=== PATIENT | male | born 1945 | race Caucasian/White ===

== ENCOUNTER 2017-01-06 15:43 | Emergency (ER) | payer OTHER ==
[2017-01-06 15:49] VITALS: TEMP 97.8; BMI 27.2
[2017-01-06] MEDS ORDERED: ACETAMINOPHEN 325 MG TABLET (FP) PO ONE (16:19)
--- NOTE | 2017-01-06 16:19 | PDOC ---
History of Present Illness <Ivy Godoy - Last Filed: 01/06/17 18:02> - General History Source: Patient Exam Limitations: No Limitations - History of Present Illness Initial Comments: 71 yo M history DM, HTN presents with L sided rib pain and R low back pain s/p fall 2 days ago. Fall was mechanical. No LOC, no head injury. He c/o pain on deep inspiration and with palpation of his left ribs. He has pain that goes from low back into his R leg, however, he has had that for 4 months, unchanged. No weakness, numbness. Pain is moderate. He has not taken anything for it. <Sarina Morrow - Last Filed: 01/06/17 19:01> - General Chief Complaint: Pain Stated Complaint: FALL/ RT LEG PAIN, SOB Time Seen by Provider: 01/06/17 16:05 Past History <Ivy Godoy - Last Filed: 01/06/17 18:02> - Past Medical History Diabetes: Yes HTN: Yes Hypercholesterolemia: Yes - Psycho/Social/Smoking Cessation Hx Suicidal Ideation: No Smoking History: Never smoked Information on smoking cessation initiated: No <Sarina Morrow - Last Filed: 01/06/17 19:01> - Past Medical History Allergies/Adverse Reactions: Allergies Allergy/AdvReac Type Severity Reaction Status Date / Time No Known Allergies Allergy Verified 01/06/17 15:49 Home Medications: Ambulatory Orders Aspirin [ASA -] 81 mg PO DAILY 01/06/17 Gabapentin [Neurontin] 100 mg PO DAILY 01/06/17 Linagliptin [Tradjenta] 5 mg PO DAILY 01/06/17 Rosuvastatin Calcium [Crestor] 40 mg PO DAILY 01/06/17 Tramadol HCl 0.5 - 1 tab PO Q6H PRN #12 tablet MDD 4 tabs 01/06/17 Valsartan [Diovan] 160 mg PO DAILY 01/06/17 Review of Systems - Review of Systems Able to Perform ROS?: Yes Comments:: GENERAL/CONSTITUTIONAL: No fever or chills. No weakness. HEAD, EYES, EARS, NOSE AND THROAT: No change in vision. No ear pain or discharge. No sore throat. CARDIOVASCULAR: No shortness of breath. +L sided rib pain. RESPIRATORY: No cough, wheezing, or hemoptysis. GASTROINTESTINAL: No nausea, vomiting, diarrhea or constipation. GENITOURINARY: No dysuria, frequency, or change in urination. MUSCULOSKELETAL: +R low back pain. No joint or muscle swelling or pain. No neck pain. SKIN: No rash NEUROLOGIC: No headache, vertigo, loss of consciousness, or change in strength/ sensation. ENDOCRINE: No increased thirst. No abnormal weight change. HEMATOLOGIC/LYMPHATIC: No anemia, easy bleeding, or history of blood clots. ALLERGIC/IMMUNOLOGIC: No hives or skin allergy. <Sarina Morrow - Last Filed: 01/06/17 19:01> *Physical Exam - Vital Signs Last Vital Signs Temp Pulse Resp BP Pulse Ox 97.8 F 70 18 168/98 97 01/06/17 15:44 01/06/17 15:44 01/06/17 15:44 01/06/17 15:44 01/06/17 15:44 <Ivy Godoy - Last Filed: 01/06/17 18:02> - Vital Signs Last Vital Signs Temp Pulse Resp BP Pulse Ox 97.8 F 70 18 168/98 97 01/06/17 15:44 01/06/17 15:44 01/06/17 15:44 01/06/17 15:44 01/06/17 15:44 - Physical Exam Comments: GENERAL: Awake, alert, and fully oriented, in no acute distress HEAD: No signs of trauma EYES: PERRLA, EOMI, sclera anicteric, conjunctiva clear ENT: Auricles normal inspection, hearing grossly normal, nares patent, oropharynx clear without exudates. Moist mucosa NECK: Normal ROM, supple, no lymphadenopathy, JVD, or masses LUNGS: Breath sounds equal, clear to auscultation bilaterally. No wheezes, and no crackles. +L lower rib tenderness in the mid-axillary line. HEART: Regular rate and rhythm, normal S1 and S2, no murmurs, rubs or gallops ABDOMEN: Soft, nontender, normoactive bowel sounds. No guarding, no rebound. No masses EXTREMITIES: Normal range of motion, no edema. No clubbing or cyanosis. No cords, erythema, or tenderness NEUROLOGICAL: Cranial nerves II through XII grossly intact. Normal speech, normal gait SKIN: Warm, Dry, normal turgor, no rashes or lesions noted. SPINE: No midline tenderness. +Tenderness to R iliac crest. <Sarina Morrow - Last Filed: 01/06/17 19:01> ED Treatment Course - RADIOLOGY Radiograph Interpretation: 01/06/17 17:50 XRay of Pelvis As reviewed by Dr. Esau Westfall IMPRESSION: No fracture or acute pathology. 01/06/17 18:03 XRay of Ribs As reviewed by Dr. Esau Westfall IMPRESSION: Fracture fourth and fifth lateral ribs. XRay of Lumbar Spine As reviewed by Dr. Esau Westfall IMPRESSION: Mild degenerative arthritis, no fracture no acute bony abnormalities. - Medications Given in the ED: ED Medications Discontinued Medications Generic Name Dose Route Start Last Admin Trade Name Freq PRN Reason Stop Dose Admin Acetaminophen 650 mg 01/06/17 16:19 01/06/17 16:25 Tylenol - PO 01/06/17 16:20 650 mg ONCE ONE Administration <Ivy Godoy - Last Filed: 01/06/17 18:02> *DC/Admit/Observation/Transfer <Ivy Godoy - Last Filed: 01/06/17 18:02> - Discharge Dispostion Admit: No <Sarina Morrow - Last Filed: 01/06/17 19:01> Diagnosis at time of Disposition: Rib fractures Qualifiers: Encounter type: initial encounter Rib fracture type: multiple ribs Fracture type: closed Laterality: left Qualified Code(s): S22.42XA - Multiple fractures of ribs, left side, initial encounter for closed fracture - Discharge Dispostion Disposition: HOME Condition at time of disposition: Stable - Prescriptions Prescriptions: Tramadol HCl 0.5 - 1 tab PO Q6H PRN #12 tablet MDD 4 tabs PRN Reason: Severe Pain - Patient Instructions Printed Discharge Instructions: DI for Rib Fracture Print Language: PORTUGUESE
[2017-01-06] MEDS ORDERED: ACETAMINOPHEN 325 MG TABLET (FP) ONE (16:23)
[2017-01-06 18:56] VITALS: BP 136/70; PULSE 84
== END 2017-01-06 18:56 | disposition home or self-care (01) ==
LOC: JER 15:43
DX: S22.42XA Multiple fractures of ribs, left side, initial encounter for closed fracture (principal); W18.30XA Fall on same level, unspecified, initial encounter; Y93.9 Activity, unspecified; Y92.9 Unspecified place or not applicable; I10 Essential (primary) hypertension; E11.9 Type 2 diabetes mellitus without complications; Z79.82 Long term (current) use of aspirin
CPT/HCPCS: 71101-TC; 72100-TC; 72170-TC; 99282-25

== ENCOUNTER 2019-08-28 06:43 | Inpatient (IN) | payer OTHER ==
[2019-08-28] MEDS ORDERED: ALBUTEROL SO4 HFA INHALER IH ONE (11:37)
[2019-08-28] MEDS ORDERED: ACETAMINOPHEN 325 MG TABLET (FP) PO PRN (11:37)
--- NOTE | 2019-08-28 11:55 | OP ---
Operative Note - Note: Operative Date: 08/28/19 Pre-Operative Diagnosis: bph with obst. Operation: cysto, turp/tuvp Findings: trilobar prostate hypertrophy and trabeculated bladder Post-Operative Diagnosis: Same as Pre-op Surgeon: Kelechi Mcdonnell Anesthesia: General Specimens Removed: prostate tissue Estimated Blood Loss (mls): 50 Drains & Tubes with Location: 24f 30 cc 3way meraz with cbi Drains, Volume Out (mls): 0 Blood Volume Replaced (mls): 0 Fluid Volume Replaced (mls): 0 Operative Report Dictated: Yes
[2019-08-28] MEDS ORDERED: ceFAZolin SODIUM 1 GM VIAL ONE (12:08)
[2019-08-28] MEDS ORDERED: LIDOCAINE HCL/PF 2% SDV 5ML VIAL ONE (12:08)
[2019-08-28] MEDS ORDERED: MIDAZOLAM HCL 2 MG/2 ML SINGLE DOSE VIAL ONE (12:08)
[2019-08-28] MEDS ORDERED: PROPOFOL 20 ML ONE (12:08)
--- NOTE | 2019-08-28 12:09 | OP ---
DATE OF OPERATION: 08/28/2019 PREOPERATIVE DIAGNOSIS: Obstructive uropathy, benign prostatic hypertrophy. POSTOPERATIVE DIAGNOSIS: Trilobar hypertrophy of the prostate, lateral lobe kissing, grade 2-3 trabeculation of the bladder. ANESTHESIA: General. OPERATIVE PROCEDURE: Transurethral resection and transurethral vaporization of the prostate. ANESTHESIA: General. DESCRIPTION OF PROCEDURE: Under above-stated anesthesia, patient is prepped and draped in the usual sterile manner. He is placed in the dorsal lithotomy position. Cystoscopy under direct vision revealed a normal anterior urethra. Prostatic urethra revealed trilobar hypertrophy of the prostate. There was lateral lobe kissing. Prostatic urethra measured 6 cm in length. The bladder was entered, 200 mL of urine was drained. This was sent for cytology and culture and sensitivity. Inspection of the bladder revealed a grade 2-3 trabeculation. There were sacules on the right and left lateral coronel. Ureteral orifices were within normal limits with efflux of clear urine. A bipolar resectoscope was inserted. Resection of the prostate was commenced at the 6 o'clock position of the right lower lobe. This was carried on up to the 12 o'clock position. Same thing was done to the left lateral lobe. Lastly, the median lobe was resected. Hemostasis was secured with electrocoagulation. Prostate chips were evacuated with an [employer] evacuator. A VaporTrode was then introduced, and vaporization of excess tissue was performed in the usual manner. Again, bleeding was controlled with electrocautery. No active bleeding was noted. The bladder was emptied. The scope was removed. A 24-Danish, 30-mL, 3-way [place] catheter was inserted. This was connected to a drainage bag. The patient tolerated the procedure well. He returned to the recovery room in good condition. Salomón [id number]
[2019-08-28] MEDS ORDERED: TAMSULOSIN HCL 0.4 MG CAP PO ONE (12:15)
[2019-08-28] MEDS ORDERED: ceFAZolin SODIUM 1 GM VIAL IVPB ONE (12:28)
--- NOTE | 2019-08-28 12:31 | CONS ---
DATE OF CONSULTATION: DATE OF DICTATION: 08/28/2019 HISTORY: Patient is a 74-year-old male with history of prostatism including frequency, urgency, nocturia x4, hesitancy, terminal dribbling, a weak urinary stream, and a postvoid residual greater than 200 mL. PAST MEDICAL HISTORY: The patient does have history of high blood pressure, diabetes, and dyslipidemia. PAST SURGICAL HISTORY: He denies any past surgeries. MEDICATIONS: He is on albuterol, losartan, Flomax, Proscar. Was on Plavix but stopped 1 week earlier. He is also on vitamin D. Patient also is on Trulicity, XR 1000 mg, and a statin. PHYSICAL EXAMINATION: General: Reveals a well-developed, elderly male in no apparent distress. HEENT: His head is normocephalic, atraumatic. Chest: Clear to auscultation, percussion. Heart: Regular rhythm. Abdomen: Soft. There is no CVA tenderness. Extremities: Reveal full range with no clubbing, cyanosis, or edema. Neurologic: There are no focal lesions noted. Motor strength in upper and lower extremities are normal. Sensory exam is intact. Genitourinary: Prostate is 3+, smooth, nontender. Rectal: Tone is good. Saddle sensation is present. PLAN: The patient is undergoing a cystoscopy and a TURP. This was explained to patient in detail. All side effects including retrograde ejaculation, hemorrhage, infection, perforation were also explained in detail, and patient agrees. Salomón [id number]
[2019-08-28] MEDS ORDERED: DEXAMETHASONE SOD PHOSPHATE 4 MG/1 ML VIAL ONE (12:36)
[2019-08-28] MEDS ORDERED: GENTAMICIN 80MG PREMIX BAG IVPB ONE (14:14)
[2019-08-28] MEDS ORDERED: GENTAMICIN SO4 80 MG/2 ML VIAL ONE (14:15)
[2019-08-28] MEDS ORDERED: KETOROLAC TROMETHAMINE 30 MG/1 ML VIAL ONE (14:39)
[2019-08-28] MEDS ORDERED: oxyCODONE HCL 5 MG TABLET PO PRN (15:00)
[2019-08-28] MEDS ORDERED: ONDANSETRON 4 MG/2 ML VIAL IVPUSH PRN (15:00)
[2019-08-28] MEDS ORDERED: LACTATED RINGERS SOLUTION 1,000 ML IV SCH ×2 (15:00→20:00)
[2019-08-28] MEDS ORDERED: ACETAMINOPHEN 1000 MG/100 ML VIAL (NON FORMULARY) IVPB ONE (15:02)
--- NOTE | 2019-08-28 16:18 | PATH ---
Cytology Non-Gynecological Report Patient Name: CANDIE CHILEL Med. Rec. #: [id number] /Age/Gender: 1945 (Age: 74) / M Account: [id number] Location: AMBULATORY SURG Taken: 08/28/2019 Received: 08/28/2019 Reported: 08/28/2019 Physicians: Kelechi Mcdonnell M.D. Specimen(s) Received URINE Clinical History Urine for cytology Final Diagnosis URINE FOR CYTOLOGY: SATISFACTORY FOR EVALUATION. NEGATIVE FOR HIGH GRADE UROTHELIAL CARCINOMA. SCATTERED UROTHELIAL CELLS PRESENT. NUMEROUS NEUTROPHILS PRESENT. NUMEROUS BACTERIA PRESENT. Electronically Signed Paulina Mahajan M.D. Gross Description Approximately 45 cc of yellow fluid received fresh. One cytofunnel prepared and Pap stained.
--- NOTE | 2019-08-28 16:51 | OP ---
Operative Note - Note: Operative Date: 08/28/19 Pre-Operative Diagnosis: bph with luts Operation: cysto, turp/tuvp and suprapubic cyststomy Post-Operative Diagnosis: Same as Pre-op Surgeon: Kelechi Mcdonnell Anesthesia: General, Spinal Specimens Removed: prostate chips Estimated Blood Loss (mls): 100 Drains & Tubes with Location: 20f 10cc meraz and 20f 10cc sp-meraz Drains, Volume Out (mls): 0 Blood Volume Replaced (mls): 0 Fluid Volume Replaced (mls): 0 Operative Report Dictated: Yes
[2019-08-28] MEDS ORDERED: ACETAMINOPHEN INJECTION 100 ML IVPB ONE (18:09)
[2019-08-28] MEDS ORDERED: ALBUTEROL SO4 0.083% IH SOL 2.5 MG/3 ML VIAL.NEB. NEB ONE (18:12)
[2019-08-28] MEDS: DEXTROSE 5%-0.45% SALINE 1,000 ML IV SCH (19:35)
[2019-08-28] MEDS ORDERED: SENNOSIDES 8.6MG TABLET (FP) PO PRN (19:56)
[2019-08-28] MEDS ORDERED: ALBUTEROL SO4 0.083% IH SOL 2.5 MG/3 ML VIAL.NEB. NEB PRN (19:56)
[2019-08-28 21:58] LABS: HEMATOCRIT 35.3 % (35.4-49); HEMOGLOBIN 11.8 GM/dL (11.7-16.9); MCH 34.8 pg (25.7-33.7); MCHC 33.3 g/dl (32.0-35.9); MEAN CELL VOLUME 104.4 fl (80-96); MEAN PLT VOLUME 9.6 fl (7.5-11.1); PLATELET COUNT 210 K/MM3 (134-434); RBC 3.38 M/mm3 (4.00-5.60); RDW 12.7 % (11.9-15.9); WHITE BLOOD COUNT 22.2 K/mm3 (4.0-10.0)
[2019-08-28] MEDS: FINASTERIDE 5 MG TABLET (FP) PO SCH (22:15)
[2019-08-28] MEDS: amLODIPine BESYLATE 5 MG TABLET (FP) PO SCH (22:16)
[2019-08-28] MEDS: CEPHALEXIN MONOHYDRATE 500 MG CAPSULE (UD) PO SCH ×2 (22:16→22:33)
[2019-08-28] MEDS: ATORVASTATIN CA 20 MG TABLET (FP) PO SCH (22:16)
[2019-08-28] MEDS: INSULIN SLIDING SCALE (NOVOLOG) 1 VIAL SQ SCH (22:21)
--- NOTE | 2019-08-28 22:33 | HP ---
Admitting History and Physical - Admission Chief Complaint: BPH with obstructive sx, presents for elective TURP History of Present Illness: 74 year old M with h/o DMII, HTN, BPH w/ LUTS and HLD presents for elective TURP. Post TURP, surgeon was unable to pass the meraz and pt noted with hematuria. A suprapubic cyststomy was done and suprapubic catheter placed for continuous bladder irrigation. In PACU, pt noted with several/scrotal edema and irrigation was discontinued. Pt ordered for Keflex 500mg TID for 3 doses. Decision made to admit for continued management s/p TURP c/b hematuria with SHELBIE drain and inability to pass meraz requiring suprapubic cath placement. Post op Xray negative for foreign body. History Source: Patient Limitations to Obtaining History: No Limitations - Past Medical History Cardiovascular: Yes: HTN, Hyperlipdemia Renal/: Yes: BPH - Past Surgical History Additional Past Surgical History: PAD s/p angiogram with ? stent placement - Advance Directives Advance Directives: Yes: Health Care Proxy (daughter (Gem Diop) [phone]) - Smoking History Smoking history: Never smoked Have you smoked in the past 12 months: No - Alcohol/Substance Use Hx Alcohol Use: No History of Substance Use: reports: None - Social History Usual Living Arrangement: Yes: Alone Do you think of yourself as: Other ( from ) ADL: Independent History of Recent Travel: No Other Social History: retired from working with insurance [employer] Home Medications - Allergies Allergies/Adverse Reactions: Allergies Allergy/AdvReac Type Severity Reaction Status Date / Time No Known Allergies Allergy Verified 08/27/19 13:31 - Home Medications Home Medications: Ambulatory Orders Aspirin [ASA -] 81 mg PO DAILY 01/06/17 Amlodipine Besylate [Norvasc -] 5 mg PO HS 08/28/19 Atorvastatin Ca [Lipitor] 20 mg PO HS 08/28/19 Clopidogrel Bisulfate [Plavix] 1 tab PO DAILY 08/28/19 Dulaglutide [Trulicity] 0.75 mg SQ WEEKLY 08/28/19 Finasteride [Proscar -] 5 mg PO DAILY 08/28/19 Tamsulosin HCl [Flomax] 0.4 mg PO DAILY 08/28/19 Telmisartan/Hydrochlorothiazid [Telmisartan-Hctz 80-12.5 mg Tb] 1 each PO DAILY 08/28/19 Family Medical History Other Family History: Mother alive (94) DM 2. Father (89) natural causes. 7 brother and 2 sisters, strong h/o HLD and HTN in sisters Review of Systems - Review of Systems Constitutional: reports: No Symptoms Eyes: reports: No Symptoms HENT: reports: No Symptoms Neck: reports: No Symptoms Cardiovascular: reports: No Symptoms Respiratory: reports: No Symptoms Gastrointestinal: reports: No Symptoms Genitourinary: reports: Hematuria, Testicular Swelling Breasts: reports: No Symptoms Reported Musculoskeletal: reports: No Symptoms Integumentary: reports: No Symptoms Neurological: reports: No Symptoms Endocrine: reports: No Symptoms Hematology/Lymphatic: reports: No Symptoms Psychiatric: reports: No Symptoms Physical Examination Vital Signs: Vital Signs Temperature 98 F 08/28/19 19:35 Pulse Rate 89 08/28/19 19:35 Respiratory Rate 18 08/28/19 19:35 Blood Pressure 133/87 08/28/19 19:35 O2 Sat by Pulse Oximetry (%) 97 08/28/19 19:35 Constitutional: Yes: Well Nourished, No Distress, Calm Eyes: Yes: Conjunctiva Clear, PERRL HENT: Yes: Atraumatic, Normocephalic Neck: Yes: Supple, Trachea Midline Cardiovascular: Yes: Regular Rate and Rhythm Respiratory: Yes: Regular, CTA Bilaterally Gastrointestinal: Yes: Normal Bowel Sounds, Soft, Abdomen, Obese ...Rectal Exam: Yes: Deferred Renal/: Yes: Meraz Present, Scrotal Edema, Other (suprapubic cath present) Breast(s): Yes: WNL Musculoskeletal: Yes: WNL Extremities: Yes: WNL Edema: No Peripheral Pulses WNL: Yes Peripheral Pulses: Left Radial: 2+, Right Radial: 2+, Left Doralis Pedis: 2+, Right Dorsalis Pedis: 2+ Integumentary: Yes: WNL Wound/Incision: Yes: Clean/Dry, Dressing Dry and Intact Neurological: Yes: Alert, Oriented ...Motor Strength: WNL Psychiatric: Yes: Alert, Oriented Imaging - Results X-ray: Report Reviewed (Abd-KUB 08/28/19 Abdomen-KUB one view CLINICAL INFORMATION: evaluate for foreign body, residual fluid (dye) A recumbent frontal radiograph was obtained. No prior imaging studies are available at this facility for direct comparison. Multiple midline cutaneous kvng are seen along the lower anterior pelvis. The curvilinear tubular structure seen within the lower pelvis probably representing a drain. Moderately opaque material is seen within the pelvis bilaterally probably extraperitoneal in location, as well as within the upper mid abdomen which may represent extravasated contrast. Correlate clinically. IMPRESSION: As noted above. Reported By: Jasiel Nunez MD 08/28/19 1459) Problem List - Problems (1) BPH loc w urin obs/LUTS Assessment/Plan: maintain suprapubic cath continue flomax and proscar monitor SHELBIE drain output closely serial abdominal assessment urology: Dr. Mcdonnell will follow patient Code(s): N40.1 - BENIGN PROSTATIC HYPERPLASIA WITH LOWER URINARY TRACT SYMP (2) Hematuria Assessment/Plan: strict intake and output nursing to flush foely if clots visualiZed within the meraz serial CBC elevate scrotum due to edema LR at 42ml/hr Code(s): R31.9 - HEMATURIA, UNSPECIFIED (3) Leukocytosis Assessment/Plan: switch keflex to levaquin IV trend WBC blood culture with AM labs trend temp curve Code(s): D72.829 - ELEVATED WHITE BLOOD CELL COUNT, UNSPECIFIED (4) HTN (hypertension) Assessment/Plan: continue norvasc and valsartan -- hold if hypotension (SBP < 90mmHg) occurs cardiac diet Code(s): I10 - ESSENTIAL (PRIMARY) HYPERTENSION (5) Diabetes type 2, controlled Assessment/Plan: hold oral agents Insulin SS start levemir qhs fingerstick ACHS diabetic diet Code(s): E11.9 - TYPE 2 DIABETES MELLITUS WITHOUT COMPLICATIONS (6) Hyperlipemia Assessment/Plan: continue statin therapy Code(s): E78.5 - HYPERLIPIDEMIA, UNSPECIFIED (7) PAD (peripheral artery disease) Assessment/Plan: hold ASA plavix has been on hold for the last 7 days prior to procedure- continue to hold Code(s): I73.9 - PERIPHERAL VASCULAR DISEASE, UNSPECIFIED (8) Prophylactic measure Assessment/Plan: bowel regimen with senna/colace Moderate pain - PRN APAP severe pain - PRN oxycodone DVT PPX- SCDs Code(s): Z29.9 - ENCOUNTER FOR PROPHYLACTIC MEASURES, UNSPECIFIED Assessment/Plan Code status: Full code Visit type - Emergency Visit Emergency Visit: No - New Patient This patient is new to me today: Yes Date on this admission: 08/28/19 - Critical Care Critical Care patient: No
[2019-08-29] MEDS: ACETAMINOPHEN 325 MG TABLET (FP) PO PRN ×2 (02:58→10:29)
[2019-08-29] MEDS: INSULIN SLIDING SCALE (NOVOLOG) 1 VIAL SQ SCH ×4 (06:34→21:38)
--- NOTE | 2019-08-29 08:03 | PN ---
Progress Note, Physician Chief Complaint: s/p TURP with suprapubic cath POD#1. c/o pain to suprapubic area. History of Present Illness: 74 year old M with h/o DMII, HTN, BPH, and HLD presents for elective TURP. Post TURP pt developed sofy hematuria and severe scrotal edema. A suprapubic cyststomy was done and suprapubic catheter placed for continuous bladder irrigation. - Current Medication List Current Medications: Active Medications Acetaminophen (Tylenol -) 650 mg PO Q6H PRN PRN Reason: PAIN Acetaminophen (Tylenol -) 325 mg PO Q6H PRN PRN Reason: PAIN LEVEL 6-10 Last Admin: 08/29/19 02:58 Dose: 325 mg Albuterol Sulfate (Ventolin 0.083% Nebulizer Soln -) 1 amp NEB RQID PRN PRN Reason: SHORT OF BREATH/WHEEZING Amlodipine Besylate (Norvasc -) 5 mg PO [facility] Last Admin: 08/28/19 22:16 Dose: 5 mg Atorvastatin Calcium (Lipitor -) 20 mg PO [facility] Last Admin: 08/28/19 22:16 Dose: 20 mg Docusate Sodium (Colace -) 100 mg PO Q8H PRN PRN Reason: CONSTIPATION Finasteride (Proscar -) 5 mg PO DAILY [facility] Last Admin: 08/28/19 22:15 Dose: 5 mg Hydrochlorothiazide (Hctz -) 12.5 mg PO DAILY [facility] Dextrose/Sodium Chloride (D5-1/2ns -) 1,000 mls @ 100 mls/hr IV ASDIR [facility] Last Admin: 08/28/19 19:35 Dose: 0 mls Lactated Ringer's (Lactated Ringers Solution) 1,000 mls @ 42 mls/hr IV ASDIR [facility] Insulin Aspart (Novolog Vial Sliding Scale -) 1 vial SQ [facility]; Protocol Last Admin: 08/29/19 06:34 Dose: 5 units Insulin Detemir (Levemir Vial) 5 units SQ [facility] Ondansetron HCl (Zofran Injection) 4 mg IVPUSH Q6H PRN PRN Reason: NAUSEA AND/OR VOMITING Last Admin: 08/29/19 06:43 Dose: 4 mg Oxycodone HCl (Roxicodone -) 5 mg PO Q6H PRN PRN Reason: PAIN LEVEL 6-10 Oxycodone HCl (Roxicodone -) 5 mg PO Q4H PRN PRN Reason: PAIN LEVEL 1-5 Stop: 08/29/19 14:59 Pneumococcal 13-Valent Conj Vacc (Prevnar 13 Syringe -) 0.5 ml IM .ONCE ONE Stop: 08/29/19 06:04 Senna (Senna -) 2 tab PO HS PRN PRN Reason: CONSTIPATION Tamsulosin HCl (Flomax -) 0.4 mg PO DAILY@0830 [place] Valsartan (Diovan -) 320 mg PO DAILY [place] - Objective Vital Signs: Vital Signs Temperature 98.2 F 08/29/19 05:25 Pulse Rate 81 08/29/19 05:25 Respiratory Rate 18 08/29/19 05:25 Blood Pressure 126/74 08/29/19 05:25 O2 Sat by Pulse Oximetry (%) 95 08/28/19 19:56 Constitutional: Yes: Well Nourished, Moderate Distress (r/t pain) Eyes: Yes: WNL, Conjunctiva Clear HENT: Yes: WNL, Atraumatic, Normocephalic Neck: Yes: WNL, Supple, Trachea Midline Cardiovascular: Yes: WNL, Regular Rate and Rhythm Respiratory: Yes: WNL, Regular, CTA Bilaterally Gastrointestinal: Yes: WNL, Normal Bowel Sounds, Soft ...Rectal Exam: Yes: Deferred Genitourinary: Yes: Bladder Distention, Meraz Present (with clear yellow urine.) , Scrotal Edema (and penial edema noted), Other (subrapubic cath with CBI being held) Musculoskeletal: Yes: WNL Extremities: Yes: WNL Edema: Yes Edema: LLE: Trace, RLE: Trace Peripheral Pulses WNL: Yes Peripheral Pulses: Left Radial: 2+, Right Radial: 2+, Left Doralis Pedis: 2+, Right Dorsalis Pedis: 2+, Left Femoral: 2+, Right Femoral: 2+ Integumentary: Yes: WNL Wound/Incision: Yes: Dressing Dry and Intact (suprapubic dressing C/D/I) Neurological: Yes: WNL, Alert, Oriented ...Motor Strength: WNL Psychiatric: Yes: WNL Labs: CBC, BMP 08/28/19 21:00 - ....Imaging X-ray: Report Reviewed (Abd-KUB 08/28/19 Abdomen-KUB one view CLINICAL INFORMATION: evaluate for foreign body, residual fluid (dye) A recumbent frontal radiograph was obtained. No prior imaging studies are available at this facility for direct comparison. Multiple midline cutaneous kvng are seen along the lower anterior pelvis. The curvilinear tubular structure seen within the lower pelvis probably representing a drain. Moderately opaque material is seen within the pelvis bilaterally probably extraperitoneal in location, as well as within the upper mid abdomen which may represent extravasated contrast) Ultrasound: Report Reviewed (Renal us: no hydro) Problem List - Problems (1) BPH loc w urin obs/LUTS Assessment/Plan: POD#1 from TURP with suprapubic cath meraz to gravity strict I/Os pain medication with oxycodone/ dilaudid x 1 dose given for severe pain Code(s): N40.1 - BENIGN PROSTATIC HYPERPLASIA WITH LOWER URINARY TRACT SYMP (2) Diabetes type 2, controlled Assessment/Plan: BGM AC/HS with novolog sliding scale BGM high 200-350 will increase levemir to 10u bid Code(s): E11.9 - TYPE 2 DIABETES MELLITUS WITHOUT COMPLICATIONS (3) HTN (hypertension) Assessment/Plan: normotensive c/w norvasc, hctz, valsartan Code(s): I10 - ESSENTIAL (PRIMARY) HYPERTENSION (4) Hematuria Assessment/Plan: CBI stopped overnight r/t severe scrotal/penial edema urine clear flush meraz if UOP abruptly stops to assess for clots Code(s): R31.9 - HEMATURIA, UNSPECIFIED (5) Hyperlipemia Assessment/Plan: c/w atorvastatin Code(s): E78.5 - HYPERLIPIDEMIA, UNSPECIFIED (6) Leukocytosis Assessment/Plan: resolving WBC 15.8 afebrile Code(s): D72.829 - ELEVATED WHITE BLOOD CELL COUNT, UNSPECIFIED (7) PAD (peripheral artery disease) Code(s): I73.9 - PERIPHERAL VASCULAR DISEASE, UNSPECIFIED (8) Prophylactic measure Assessment/Plan: FEN Fluids: adequate PO intake, can stop IVF Electrolytes: monitor & replete as needed Nutrition: diabetic diet DVT OOB/SCD/ambulation Dispo Maintain as inpatient full code discharge planning Code(s): Z29.9 - ENCOUNTER FOR PROPHYLACTIC MEASURES, UNSPECIFIED Visit type - Emergency Visit Emergency Visit: No - New Patient This patient is new to me today: Yes Date on this admission: 08/29/19 - Critical Care Critical Care patient: No - Discharge Referral Referred to [facility] No
[2019-08-29] MEDS: VALSARTAN 160 MG TABLET (UD) PO SCH (09:18)
[2019-08-29] MEDS: HYDROCHLOROTHIAZIDE 12.5 MG CAPSULE (FP) PO SCH (09:18)
[2019-08-29] MEDS: FINASTERIDE 5 MG TABLET (FP) PO SCH (09:19)
[2019-08-29] MEDS: TAMSULOSIN HCL 0.4 MG CAP PO SCH (09:19)
[2019-08-29 09:29] LABS: BASO % 0.1 % (0-2.0); EOS % 0.1 % (0-4.5); HEMATOCRIT 33.1 % (35.4-49); HEMOGLOBIN 10.9 GM/dL (11.7-16.9); LYMPH % 3.4 % (8-40); MCH 34.4 pg (25.7-33.7); MEAN PLT VOLUME 9.4 fl (7.5-11.1); MONO % 9.3 % (3.8-10.2); NEUT % 87.1 % (42.8-82.8); PLATELET COUNT 229 K/MM3 (134-434); RBC 3.19 M/mm3 (4.00-5.60); RDW 12.9 % (11.9-15.9); WHITE BLOOD COUNT 15.8 K/mm3 (4.0-10.0)
[2019-08-29] MEDS ORDERED: PATIENT'S OWN MEDICATION (NON-FORMULARY) (Telmisartan/Hydrochlorothiazid [Telmisartan-Hctz PO SCH (10:00)
[2019-08-29 10:13] LABS: ALBUMIN 3.2 g/dl (3.4-5.0); BILIRUBIN,TOTAL 0.4 mg/dL (0.2-1); BLOOD UREA NITROGEN 23.2 mg/dL (7-18); CALCIUM 7.8 mg/dL (8.5-10.1); CREATININE 1.6 mg/dL (0.55-1.3); MAGNESIUM 1.6 mg/dL (1.8-2.4); PHOSPHOROUS 2.6 mg/dL (2.5-4.9); POTASSIUM 4.5 mmol/L (3.5-5.1); TOT PROT 6.5 g/dl (6.4-8.2)
[2019-08-29] MEDS: oxyCODONE HCL 5 MG TABLET PO PRN ×2 (10:29→15:10)
[2019-08-29] MEDS ORDERED: PNEUMOC 13-VAL CONJ-DIP CRM/PF 0.5 ML DISP.SYRIN IM ONE (11:00)
[2019-08-29] MEDS ORDERED: HYDROmorphone HCl 2 MG/ML VIAL IVPB ONE (11:00)
[2019-08-29] MEDS ORDERED: HYDROmorphone HCl 2 MG/ML VIAL IVPUSH ONE (11:00)
[2019-08-29] MEDS: DEXTROSE 5%-0.45% SALINE 1,000 ML IV SCH (11:48)
[2019-08-29] MEDS ORDERED: MAGNESIUM OXIDE 400 MG TABLET (FP) PO ONE (12:30)
--- NOTE | 2019-08-29 14:08 | OP ---
DATE OF OPERATION: DATE OF DICTATION: 08/28/2019 HISTORY: Patient is a 74-year-old male with obstructing prostate gland and prostatism. ANESTHESIA: Spinal and converted to general. PREOPERATIVE DIAGNOSIS: Benign prostatic hypertrophy. POSTOPERATIVE DIAGNOSIS: Benign prostatic hypertrophy with hematuria. OPERATIVE PROCEDURE: Ureteroscopy, transurethral resection of the prostate, transurethral vaporization of the prostate, multiple attempts at passage of Houston catheter failed, open suprapubic cystotomy with drainage of retropubic space. DESCRIPTION OF PROCEDURE: Under spinal anesthesia, patient was prepped and draped in the usual sterile manner. He was placed in the dorsal lithotomy position. Cystoscopy using a 30-degree continuous flow scope revealed a normal anterior urethra. Prostatic urethra revealed trilobar hypertrophy of the prostate. There was lateral lobe kissing. The bladder revealed hyperemic mucosa with grade 2-3 trabeculation. No overt lesions or calculi were seen. A bipolar resectoscope was introduced. Resection of the prostate was performed in the usual fashion by commencing at the 6 o'clock position of the right lower lobe. This was carried on up to the 12 o'clock position. The resection commenced at the bladder neck and ended at the verumontanum. Same thing was done to the left lateral lobe. Lastly, the median lobe was resected. Hemostasis was secured with electrocoagulation. Prostate chips were evacuated with an [employer] evacuator. A VaporTrode was introduced, and excess prostate tissue was vaporized until the capsule of the prostate was visible. The scope was removed. Multiple attempts at placement of a Houston catheter were unsuccessful. A Mandrin wire was used. This was unsuccessful. Filiform and followers were also unsuccessfully attempted. It was decided that the patient should undergo a suprapubic cystotomy. Therefore, he was repositioned, reprepped, and draped in sterile fashion. Anesthesia was converted to general anesthesia. A suprapubic incision was made above the pubic bone. This was carried down through skin and subcutaneous tissue. Rectus fascia was opened in the direction of its fibers. Using both blunt and sharp dissection, the retropubic space was opened. The peritoneal curtain was swept cephalically with a sponge stick. Using blunt and sharp dissection, the dome of the bladder was isolated. This was grasped with 2 Allis forceps. A stab cystotomy was performed. Bloody urine was suctioned out. Inspection of the bladder revealed no overt lesions. A Houston catheter with Mandrin wire using the digital finger as a guide placed in the bladder neck was passed per urethra and into the bladder. A 22-Bolivian suprapubic Houston was placed in the bladder. The bladder mucosa was closed with 2 layers. The 1st layer with 3-0 Vicryl suture ligatures, the 2nd layer with 2-0 Vicryl suture ligatures. Pressure dressing was applied. The wound was irrigated with antibiotic solution. The fascia was closed with 0 Vicryl suture. The subcutaneous was closed with 3-0 Vicryl sutures. The skin was closed with kvng. CBI was commenced with normal saline. The patient tolerated the procedure well. Salomón [id number]
[2019-08-29] MEDS: MAG HYDROX/AL HYDROX/SIMETH 30 ML UNIT-DOSE CUP PO PRN ×2 (15:09→21:40)
[2019-08-29] MEDS ORDERED: INSULIN (NOVOLOG) ASPART 100 UNITS/ML 10ML VIAL ONE ×2 (16:45→21:21)
[2019-08-29] MEDS: ATORVASTATIN CA 20 MG TABLET (FP) PO SCH (21:38)
[2019-08-29] MEDS: amLODIPine BESYLATE 5 MG TABLET (FP) PO SCH (21:38)
[2019-08-29] MEDS: INSULIN (LEVEMIR) 100 UNITS/ML UNITS SQ SCH (21:38)
[2019-08-29] MEDS ORDERED: INSULIN (LEVEMIR) 100 UNITS/ML UNITS SQ SCH (22:00)
[2019-08-30] MEDS: INSULIN (LEVEMIR) 100 UNITS/ML UNITS SQ SCH ×2 (06:07→22:32)
[2019-08-30] MEDS: INSULIN SLIDING SCALE (NOVOLOG) 1 VIAL SQ SCH ×4 (06:08→22:35)
--- NOTE | 2019-08-30 08:00 | PN ---
Progress Note, Physician Chief Complaint: s/p TURP with suprapubic cath POD#2. Pain well managed today. Feels very weak today Meraz/suprapubic cath blood tinged. History of Present Illness: 74 year old M with h/o DMII, HTN, BPH, and HLD presents for elective TURP. Post TURP pt developed sofy hematuria and severe scrotal edema. A suprapubic cyststomy was done and suprapubic catheter placed for continuous bladder irrigation. - Current Medication List Current Medications: Active Medications Acetaminophen (Tylenol -) 650 mg PO Q6H PRN PRN Reason: PAIN Acetaminophen (Tylenol -) 325 mg PO Q6H PRN PRN Reason: PAIN LEVEL 6-10 Last Admin: 08/29/19 10:29 Dose: 325 mg Al Hydroxide/Mg Hydroxide (Mylanta Oral Suspension -) 30 ml PO Q6H PRN PRN Reason: DYSPEPSIA Last Admin: 08/29/19 21:40 Dose: 30 ml Albuterol Sulfate (Ventolin 0.083% Nebulizer Soln -) 1 amp NEB RQID PRN PRN Reason: SHORT OF BREATH/WHEEZING Amlodipine Besylate (Norvasc -) 5 mg PO HS [facility] Last Admin: 08/29/19 21:38 Dose: 5 mg Atorvastatin Calcium (Lipitor -) 20 mg PO HS [facility] Last Admin: 08/29/19 21:38 Dose: 20 mg Docusate Sodium (Colace -) 100 mg PO Q8H PRN PRN Reason: CONSTIPATION Finasteride (Proscar -) 5 mg PO DAILY [facility] Last Admin: 08/29/19 09:19 Dose: 5 mg Hydrochlorothiazide (Hctz -) 12.5 mg PO DAILY [facility] Last Admin: 08/29/19 09:18 Dose: 12.5 mg Dextrose/Sodium Chloride (D5-1/2ns -) 1,000 mls @ 100 mls/hr IV ASDIR [facility] Last Admin: 08/29/19 11:48 Dose: Not Given Insulin Aspart (Novolog Vial Sliding Scale -) 1 vial SQ ACHS [facility]; Protocol Last Admin: 08/30/19 06:08 Dose: Not Given Insulin Detemir (Levemir Vial) 10 units SQ BID@0700,2200 [facility] Last Admin: 08/30/19 06:07 Dose: 10 units Ondansetron HCl (Zofran Injection) 4 mg IVPUSH Q6H PRN PRN Reason: NAUSEA AND/OR VOMITING Last Admin: 08/29/19 06:43 Dose: 4 mg Oxycodone HCl (Roxicodone -) 5 mg PO Q6H PRN PRN Reason: PAIN LEVEL 6-10 Last Admin: 08/29/19 15:10 Dose: 5 mg Senna (Senna -) 2 tab PO HS PRN PRN Reason: CONSTIPATION Tamsulosin HCl (Flomax -) 0.4 mg PO DAILY@0830 [facility] Last Admin: 08/29/19 09:19 Dose: 0.4 mg Valsartan (Diovan -) 320 mg PO DAILY [facility] Last Admin: 08/29/19 09:18 Dose: 320 mg - Objective Vital Signs: Vital Signs Temperature 98.8 F 08/30/19 05:30 Pulse Rate 94 H 08/30/19 05:30 Respiratory Rate 18 08/30/19 05:30 Blood Pressure 132/65 08/30/19 05:30 O2 Sat by Pulse Oximetry (%) 95 08/28/19 19:56 Additional Findings/Remarks: Constitutional: Yes: Well Nourished, no Distress, minimal pain Eyes: Yes: WNL, Conjunctiva Clear HENT: Yes: WNL, Atraumatic, Normocephalic Neck: Yes: WNL, Supple, Trachea Midline Cardiovascular: Yes: WNL, Regular Rate and Rhythm Respiratory: Yes: WNL, Regular, CTA Bilaterally Gastrointestinal: Yes: WNL, Normal Bowel Sounds, Soft ...Rectal Exam: Yes: Deferred Genitourinary: Yes: Meraz Present (with blood tinged urine.), Scrotal Edema ( and penial edema noted), Other (subrapubic cath with blood tinged urine) Musculoskeletal: Yes: WNL Extremities: Yes: WNL Edema: Yes Edema: LLE: Trace, RLE: Trace Peripheral Pulses WNL: Yes Peripheral Pulses: Left Radial: 2+, Right Radial: 2+, Left Doralis Pedis: 2+, Right Dorsalis Pedis: 2+, Left Femoral: 2+, Right Femoral: 2+ Integumentary: Yes: WNL Wound/Incision: Yes: Dressing Dry and Intact (suprapubic dressing C/D/I) Neurological: Yes: WNL, Alert, Oriented ...Motor Strength: WNL Psychiatric: Yes: WNL Labs: CBC, BMP 08/29/19 08:35 08/29/19 06:00 - ....Imaging X-ray: Report Reviewed (Abd-KUB 08/28/19 Abdomen-KUB one view CLINICAL INFORMATION: evaluate for foreign body, residual fluid (dye) A recumbent frontal radiograph was obtained. No prior imaging studies are available at this facility for direct comparison. Multiple midline cutaneous kvng are seen along the lower anterior pelvis. The curvilinear tubular structure seen within the lower pelvis probably representing a drain. Moderately opaque material is seen within the pelvis bilaterally probably extraperitoneal in location, as well as within the upper mid abdomen which may represent extravasated contrast) Cat Scan: Report Reviewed Ultrasound: Report Reviewed (Renal us: no hydro) Problem List - Problems (1) BPH loc w urin obs/LUTS Assessment/Plan: POD#2 from TURP with suprapubic cath meraz/suprapubic cath to gravity strict I/Os pain medication with oxycodone prn Code(s): N40.1 - BENIGN PROSTATIC HYPERPLASIA WITH LOWER URINARY TRACT SYMP (2) Diabetes type 2, controlled Assessment/Plan: BGM AC/HS with novolog sliding scale BGM high 200-350 yesterday, now 150-170 c/w increased levemir at 10u bid Code(s): E11.9 - TYPE 2 DIABETES MELLITUS WITHOUT COMPLICATIONS (3) HTN (hypertension) Assessment/Plan: normotensive c/w norvasc, hctz, valsartan Code(s): I10 - ESSENTIAL (PRIMARY) HYPERTENSION (4) Hematuria Assessment/Plan: urine blood tinged, no clots close monitoring for abrupt/decrease in UOP r/t clots Code(s): R31.9 - HEMATURIA, UNSPECIFIED (5) Hyperlipemia Assessment/Plan: c/w atorvastatin Code(s): E78.5 - HYPERLIPIDEMIA, UNSPECIFIED (6) Leukocytosis Assessment/Plan: resolving WBC 13.6 afebrile Code(s): D72.829 - ELEVATED WHITE BLOOD CELL COUNT, UNSPECIFIED (7) PAD (peripheral artery disease) Code(s): I73.9 - PERIPHERAL VASCULAR DISEASE, UNSPECIFIED (8) Prophylactic measure Assessment/Plan: FEN Fluids: adequate PO intake, can stop IVF Electrolytes: monitor & replete as needed Nutrition: diabetic diet DVT OOB/SCD/ambulation Dispo Maintain as inpatient full code discharge planning Code(s): Z29.9 - ENCOUNTER FOR PROPHYLACTIC MEASURES, UNSPECIFIED Visit type - Emergency Visit Emergency Visit: Yes ED Registration Date: 08/28/19 Care time: The patient presented to the Emergency Department on the above date and was hospitalized for further evaluation of their emergent condition. - New Patient This patient is new to me today: No - Critical Care Critical Care patient: No - Discharge Referral Referred to [facility] Med P.C.: No
[2019-08-30 08:57] LABS: BASO % 0.1 % (0-2.0); EOS % 0.7 % (0-4.5); HEMATOCRIT 29.9 % (35.4-49); HEMOGLOBIN 10.1 GM/dL (11.7-16.9); LYMPH % 8.9 % (8-40); MCH 35.1 pg (25.7-33.7); MCHC 33.8 g/dl (32.0-35.9); MEAN CELL VOLUME 103.7 fl (80-96); MEAN PLT VOLUME 9.3 fl (7.5-11.1); MONO % 11.3 % (3.8-10.2); PLATELET COUNT 196 K/MM3 (134-434); RBC 2.88 M/mm3 (4.00-5.60); RDW 12.9 % (11.9-15.9); WHITE BLOOD COUNT 13.6 K/mm3 (4.0-10.0)
--- NOTE | 2019-08-30 09:13 | PN ---
DATE OF VISIT: DATE OF DICTATION: 08/29/2019 POSTOPERATIVE DAY NOTE Patient is a 74-year-old male who underwent an elective transurethral prostatectomy yesterday. After the prostatectomy a Houston catheter was unable to be introduced via the urethra. Therefore, a suprapubic cystotomy was performed and a Houston catheter was placed suprapubically. The patient is postoperative day 1. His vital signs are stable. T-max is 98.6, blood pressure 126/70, pulse 81, respirations 18. I&Os revealed 1300 mL of serosanguineous fluid from his Georgi-Coyne drain. There were 400 mL of urine over the past 8 hours. His CBC reveals a white count of 15,800, hemoglobin 10.9, hematocrit 33.1. BUN 23, creatinine 1.6. Presently his abdomen is soft. There is no CVA tenderness. The urethral Houston is draining straw-colored urine. There are no clots. The J-P still is draining a significant amount of serosanguineous fluid. This is from the continuous bladder irrigation from the prior day. Patient does feel better. He is tolerating a diet. His bowel sounds are normoactive. His wound is clean and dry. PLAN: Dressing is changed. CBI is discontinued and both the suprapubic Houston and the urethral Houston are connected to drainage bags. Will obtain a renal pelvic ultrasound to rule out any hydronephrosis. Will also have infectious disease consult. BRIAN HUDDLESTON M.D. [id number]
[2019-08-30 09:24] LABS: ALBUMIN 2.9 g/dl (3.4-5.0); BILIRUBIN,TOTAL 0.6 mg/dL (0.2-1); BLOOD UREA NITROGEN 12.3 mg/dL (7-18); CALCIUM 8.4 mg/dL (8.5-10.1); CREATININE 1.1 mg/dL (0.55-1.3); MAGNESIUM 2.1 mg/dL (1.8-2.4); POTASSIUM 3.8 mmol/L (3.5-5.1); TOT PROT 6.1 g/dl (6.4-8.2)
--- NOTE | 2019-08-30 09:56 | PATH ---
Surgical Pathology Report Patient Name: CANDIE CHILEL [facility]. Rec. #: [id number] /Age/Gender: 1945 (Age: 74) / M Account: [id number] Location: [address] [place] [address]/[facility] Taken: 08/28/2019 Received: 08/29/2019 Reported: 08/30/2019 Physicians: Kelechi Mcdonnell M.D. Specimen(s) Received PROSTATE CHIPS Clinical History Hypertrophy of prostate (BPH) Final Diagnosis PROSTATE, TUR: BENIGN PROSTATIC HYPERPLASIA WITH AREAS OF ATROPHY AND FOCAL ACUTE INFLAMMATION. Electronically Signed Franky Hagen M.D. Gross Description Received in formalin labeled "prostate chips," is a 3 g, 5.0 x 4.0 x 0.5 cm aggregate of lea, firm to rubbery portions of tissue admixed with blood clot, consistent with prostate chips. The specimen is entirely submitted in 3 cassettes. DL/08/29/2019 saudi/08/29/2019
[2019-08-30] MEDS: FINASTERIDE 5 MG TABLET (FP) PO SCH (10:03)
[2019-08-30] MEDS: VALSARTAN 160 MG TABLET (UD) PO SCH (10:03)
[2019-08-30] MEDS: HYDROCHLOROTHIAZIDE 12.5 MG CAPSULE (FP) PO SCH (10:04)
[2019-08-30] MEDS: TAMSULOSIN HCL 0.4 MG CAP PO SCH (10:04)
[2019-08-30] MEDS: MAG HYDROX/AL HYDROX/SIMETH 30 ML UNIT-DOSE CUP PO PRN ×2 (10:07→22:31)
[2019-08-30] MEDS: DOCUSATE SODIUM 100 MG CAPSULE (FP) PO PRN (10:08)
--- NOTE | 2019-08-30 12:03 | OP ---
DATE OF OPERATION: 08/28/2019 PREOPERATIVE DIAGNOSIS: Benign prostatic hypertrophy with obstructive uropathy, trabeculated bladder. OPERATIVE PROCEDURE: Cystourethroscopy; transurethral resection of prostate; transurethral vaporization of prostate; attempted placement of Houston, unsuccessful; a suprapubic cystotomy is performed. DESCRIPTION OF PROCEDURE: Under general anesthesia, patient is prepped and draped in the usual sterile manner. He is placed in the dorsal lithotomy position. External genitalia appeared to be normal. Testes were normal in size and consistency. Meatus was adequate. Cystoscopy revealed a normal anterior urethra. Prostatic urethra revealed trilobar hypertrophy of the prostate. There was lateral lobe kissing. The bladder was entered, and 200 mL of residual urine was drained. The bladder revealed a grade 2-3 trabeculation. No lesions were noted. No calculi were seen. Therefore, a bipolar resectoscope was introduced, and resection of the prostate was commenced at the 6 o'clock position on the right lateral lobe. This was carried on up to the 12 o'clock position. The same thing was done to the left lateral lobe. The resection was carried from the bladder neck to the level of the verumontanum. Lastly, the median lobe was resected. Hemostasis was secured with electrocoagulation. Prostate chips were evacuated with an [employer] evacuator. Several attempts at placement of a Houston catheter were unsuccessful due to a high-riding bladder neck. Therefore, the patient was repositioned and re-draped in sterile fashion. He was placed in the supine position. A 5-cm vertical incision was made below the umbilicus and extended down to the pubic bone. This was carried down through skin and subcutaneous tissue. Linea alba was isolated and bluntly dissected. The anterior rectus muscles were then split at the midline using blunt dissection. The dome of the bladder was isolated. The peritoneal reflection was then swept cephalically with a moist sponge stick. The edges of the bladder were then grasped with Allis forceps and upwards. Stab incision was made into the bladder. A large amount of urine and blood clot was suctioned out. A 20-Gibraltarian suprapubic Houston catheter was placed into the bladder using the index finger for guidance. A Houston catheter placed on a mandarin wire was passed per urethra and into the bladder. This was a 22-Gibraltarian 2-way Houston. The bladder was then closed with 2 layers. The first layer was 3-0 Vicryl suture ligatures. The second layer was 2-0 Vicryl suture ligatures. The bladder then was filled with normal saline, and there was no evidence of leakage. No active bleeding was noted. A 10-Gibraltarian Houston was placed in the retropubic space. This was brought out a separate stab wound incision. The wound was copiously irrigated. The fascia was closed with 0 Vicryl suture ligatures. The subcutaneous was closed with 3-0 Vicryl suture ligatures. The skin was closed with kvng. The suprapubic tube was connected to continuous bladder irrigation with normal saline. The urethral Houston was attached to a drainage bag. The Georgi-Coyne drain was anchored with a 2-0 Vicryl suture ligature. The wound was dressed. The patient tolerated the procedure well. He returned to the recovery room in good condition. Salomón [id number]
--- NOTE | 2019-08-30 13:02 | CON.ID ---
Consult Consult Specialty:: infectious diseases Referred by:: Grace Reason for Consultation:: complicated uti - History of Present Illness Chief Complaint: uti,hemmaturia History of Present Illness: 74 year old M with h/o DMII, HTN, BPH w/ LUTS and HLD presents for elective TURP. Post TURP, surgeon was unable to pass the meraz and pt noted with hematuria. A suprapubic cyststomy was done and suprapubic catheter placed for continuous bladder irrigation. In PACU, pt noted with several/scrotal edema and irrigation was discontinued. Pt ordered for Keflex 500mg TID for 3 doses. patient was having hematurial and urine cx showing esbl uti currently patient stable - History Source History Provided By: Patient, Medical Record Limitations to Obtaining History: Language Barrier - Past Medical History Cardio/Vascular: Yes: HTN, Hyperlipdemia Renal/: Yes: BPH - Alcohol/Substance Use Hx Alcohol Use: No History of Substance Use: reports: None - Smoking History Smoking history: Never smoked Have you smoked in the past 12 months: No - Social History ADL: Independent History of Recent Travel: No Home Medications - Allergies Allergies/Adverse Reactions: Allergies Allergy/AdvReac Type Severity Reaction Status Date / Time No Known Allergies Allergy Verified 08/27/19 13:31 - Home Medications Home Medications: Ambulatory Orders Aspirin [ASA -] 81 mg PO DAILY 01/06/17 Amlodipine Besylate [Norvasc -] 5 mg PO HS 08/28/19 Atorvastatin Ca [Lipitor] 20 mg PO HS 08/28/19 Clopidogrel Bisulfate [Plavix] 1 tab PO DAILY 08/28/19 Dulaglutide [Trulicity] 0.75 mg SQ WEEKLY 08/28/19 Finasteride [Proscar -] 5 mg PO DAILY 08/28/19 Tamsulosin HCl [Flomax] 0.4 mg PO DAILY 08/28/19 Telmisartan/Hydrochlorothiazid [Telmisartan-Hctz 80-12.5 mg Tb] 1 each PO DAILY 08/28/19 Review of Systems - Review of Systems Constitutional: reports: No Symptoms Eyes: reports: No Symptoms HENT: reports: No Symptoms Neck: reports: No Symptoms Cardiovascular: reports: No Symptoms Respiratory: reports: No Symptoms Gastrointestinal: reports: No Symptoms Genitourinary: reports: Hematuria Musculoskeletal: reports: No Symptoms Integumentary: reports: No Symptoms Neurological: reports: No Symptoms Endocrine: reports: No Symptoms Hematology/Lymphatic: reports: No Symptoms Psychiatric: reports: No Symptoms Physical Exam Vital Signs: Vital Signs Temperature 99.1 F 08/30/19 09:00 Pulse Rate 95 H 08/30/19 09:00 Respiratory Rate 18 08/30/19 09:00 Blood Pressure 116/60 08/30/19 09:00 O2 Sat by Pulse Oximetry (%) 95 08/28/19 19:56 Constitutional: Yes: Well Nourished, Calm, Mild Distress Eyes: Yes: Conjunctiva Clear, EOM Intact Cardiovascular: Yes: Regular Rate and Rhythm Respiratory: Yes: Regular, CTA Bilaterally Gastrointestinal: Yes: Normal Bowel Sounds, Soft Renal/: Yes: Meraz Present, Hematuria, Other (scrotal edema improving) Musculoskeletal: Yes: WNL Extremities: Yes: WNL Wound/Incision: Yes: Other (draiange tube) Neurological: Yes: Alert, Oriented Labs: CBC, BMP 08/30/19 08:25 08/30/19 08:25 Imaging - Results Chest X-ray: Report Reviewed, Image Reviewed X-ray: Report Reviewed, Image Reviewed Assessment/Plan roblem List - Problems (1) BPH loc w urin obs/LUTS Code(s): N40.1 - BENIGN PROSTATIC HYPERPLASIA WITH LOWER URINARY TRACT SYMP (2) Diabetes type 2, controlled Code(s): E11.9 - TYPE 2 DIABETES MELLITUS WITHOUT COMPLICATIONS (3) HTN (hypertension) Code(s): I10 - ESSENTIAL (PRIMARY) HYPERTENSION (4) Hematuria Code(s): R31.9 - HEMATURIA, UNSPECIFIED (5) Hyperlipemia Code(s): E78.5 - HYPERLIPIDEMIA, UNSPECIFIED (6) Leukocytosis Code(s): D72.829 - ELEVATED WHITE BLOOD CELL COUNT, UNSPECIFIED (7) PAD (peripheral artery disease) Code(s): I73.9 - PERIPHERAL VASCULAR DISEASE, UNSPECIFIED complicated uti plan abx will need it for 2 weeks monitor hematuria rest as per the team
[2019-08-30] MEDS ORDERED: MEROPENEM 1 GM VIAL (RESTRICTED TO ID) IVPB ONE ×2 (13:25→17:30)
[2019-08-30] MEDS ORDERED: DEXTROSE 5%-WATER 100 ML IVPB ONE ×2 (13:26→17:30)
[2019-08-30] MEDS: DEXTROSE 5%-0.45% SALINE 1,000 ML IV SCH (13:33)
[2019-08-30] MEDS: MEROPENEM 1 GM in DEXTROSE 5%-WATER 100 ML IVPB SCH ×2 (13:33→17:39)
[2019-08-30] MEDS: oxyCODONE HCL 5 MG TABLET PO PRN (13:34)
[2019-08-30] MEDS: ACETAMINOPHEN 325 MG TABLET (FP) PO PRN (13:34)
--- NOTE | 2019-08-30 15:46 | PN ---
POSTOPERATIVE NOTE DATE OF VISIT: DATE OF DICTATION: 08/30/2019 This is postop day number 2. Patient is status post a TURP and a suprapubic cystotomy. His urine is clear. Abdomen is soft. There is no CVA tenderness. The patient's CBC today reveals a white count of 13,600, hemoglobin and hematocrit is 10.1 over 29.9. BUN and creatinine are 12.3 over 1.1. The patient's T-maximum was 99.1, blood pressure 144/67, respirations were 18. A urine culture came back as ESBL-positive Klebsiella pneumoniae. The patient's I and O's reveal minimal drainage via the Georgi-Coyne. There was 1000 cc from the suprapubic catheter and 1800 cc from the urethral Houston. Plan is to discontinue Georgi-Coyne drain. Patient will be transferred to [address] [place] [address] for observation and isolation. He is presently being followed by Infectious Disease. A renal ultrasound performed yesterday revealed normal upper tract; there is no evidence of hydronephrosis. IMPRESSION: Uneventful postoperative day 2. Extended-spectrum beta-lactamase klebsiella infection. Will treat appropriately. Salomón [id number]
[2019-08-30] MEDS: CEPHALEXIN MONOHYDRATE 500 MG CAPSULE (UD) PO SCH (16:35)
[2019-08-30] MEDS: amLODIPine BESYLATE 5 MG TABLET (FP) PO SCH (22:31)
[2019-08-30] MEDS: ATORVASTATIN CA 20 MG TABLET (FP) PO SCH (22:31)
[2019-08-31] MEDS ORDERED: DEXTROSE 5%-WATER 100 ML IVPB ONE ×3 (01:30→18:09)
[2019-08-31] MEDS ORDERED: MEROPENEM 1 GM VIAL (RESTRICTED TO ID) IVPB ONE ×3 (01:30→18:09)
[2019-08-31] MEDS: MEROPENEM 1 GM in DEXTROSE 5%-WATER 100 ML IVPB SCH ×3 (02:03→18:15)
[2019-08-31] MEDS: INSULIN SLIDING SCALE (NOVOLOG) 1 VIAL SQ SCH ×4 (06:32→21:13)
[2019-08-31] MEDS: INSULIN (LEVEMIR) 100 UNITS/ML UNITS SQ SCH ×2 (06:33→21:14)
[2019-08-31 08:12] LABS: BASO % 0.1 % (0-2.0); EOS % 0.8 % (0-4.5); HEMATOCRIT 25.8 % (35.4-49); HEMOGLOBIN 8.9 GM/dL (11.7-16.9); LYMPH % 11.8 % (8-40); MCH 35.3 pg (25.7-33.7); MCHC 34.5 g/dl (32.0-35.9); MEAN CELL VOLUME 102.3 fl (80-96); MEAN PLT VOLUME 9.2 fl (7.5-11.1); MONO % 12.9 % (3.8-10.2); NEUT % 74.4 % (42.8-82.8); PLATELET COUNT 186 K/MM3 (134-434); RBC 2.52 M/mm3 (4.00-5.60); RDW 12.7 % (11.9-15.9); WHITE BLOOD COUNT 10.6 K/mm3 (4.0-10.0)
[2019-08-31 08:33] LABS: ALBUMIN 2.8 g/dl (3.4-5.0); BILIRUBIN,TOTAL 0.9 mg/dL (0.2-1); CALCIUM 8.5 mg/dL (8.5-10.1); CREATININE 1.1 mg/dL (0.55-1.3); POTASSIUM 3.8 mmol/L (3.5-5.1); TOT PROT 5.7 g/dl (6.4-8.2)
--- NOTE | 2019-08-31 08:33 | PN ---
Progress Note, Physician Chief Complaint: s/p TURP with suprapubic cath POD#3. Pain well managed today. Complaining of constipation. Meraz/suprapubic cath less blood tinged today History of Present Illness: 74 year old M with h/o DMII, HTN, BPH, and HLD presents for elective TURP. Post TURP pt developed sofy hematuria and severe scrotal edema. A suprapubic cyststomy was done and suprapubic catheter placed for continuous bladder irrigation. - Current Medication List Current Medications: Active Medications Acetaminophen (Tylenol -) 650 mg PO Q6H PRN PRN Reason: PAIN Acetaminophen (Tylenol -) 325 mg PO Q6H PRN PRN Reason: PAIN LEVEL 6-10 Last Admin: 08/30/19 13:34 Dose: 325 mg Al Hydroxide/Mg Hydroxide (Mylanta Oral Suspension -) 30 ml PO Q6H PRN PRN Reason: DYSPEPSIA Last Admin: 08/30/19 22:31 Dose: 30 ml Albuterol Sulfate (Ventolin 0.083% Nebulizer Soln -) 1 amp NEB RQID PRN PRN Reason: SHORT OF BREATH/WHEEZING Amlodipine Besylate (Norvasc -) 5 mg PO HS [facility] Last Admin: 08/30/19 22:31 Dose: 5 mg Atorvastatin Calcium (Lipitor -) 20 mg PO HS [facility] Last Admin: 08/30/19 22:31 Dose: 20 mg Docusate Sodium (Colace -) 100 mg PO Q8H PRN PRN Reason: CONSTIPATION Last Admin: 08/30/19 10:08 Dose: 100 mg Finasteride (Proscar -) 5 mg PO DAILY [facility] Last Admin: 08/30/19 10:03 Dose: 5 mg Hydrochlorothiazide (Hctz -) 12.5 mg PO DAILY [facility] Last Admin: 08/30/19 10:04 Dose: 12.5 mg Dextrose/Sodium Chloride (D5-1/2ns -) 1,000 mls @ 100 mls/hr IV ASDIR [facility] Last Admin: 08/30/19 13:33 Dose: Not Given Meropenem 1 gm/ Dextrose 100 mls @ 200 mls/hr IVPB Q8H-IV [facility] Last Admin: 08/31/19 02:03 Dose: 200 mls/hr Insulin Aspart (Novolog Vial Sliding Scale -) 1 vial SQ ACHS [facility]; Protocol Last Admin: 08/31/19 06:32 Dose: Not Given Insulin Detemir (Levemir Vial) 10 units SQ BID@0700,2200 [facility] Last Admin: 08/31/19 06:33 Dose: 10 units Ondansetron HCl (Zofran Injection) 4 mg IVPUSH Q6H PRN PRN Reason: NAUSEA AND/OR VOMITING Last Admin: 08/29/19 06:43 Dose: 4 mg Oxycodone HCl (Roxicodone -) 5 mg PO Q6H PRN PRN Reason: PAIN LEVEL 6-10 Last Admin: 08/30/19 13:34 Dose: 5 mg Senna (Senna -) 2 tab PO HS PRN PRN Reason: CONSTIPATION Last Admin: 08/30/19 13:33 Dose: 2 tab Tamsulosin HCl (Flomax -) 0.4 mg PO DAILY@0830 [facility] Last Admin: 08/30/19 10:04 Dose: 0.4 mg Valsartan (Diovan -) 320 mg PO DAILY [facility] Last Admin: 08/30/19 10:03 Dose: 320 mg - Objective Vital Signs: Vital Signs Temperature 98.5 F 08/31/19 06:00 Pulse Rate 86 08/31/19 06:00 Respiratory Rate 20 08/31/19 06:00 Blood Pressure 119/59 L 08/31/19 06:00 O2 Sat by Pulse Oximetry (%) 95 08/30/19 19:58 Additional Findings/Remarks: Constitutional: Yes: Well Nourished, no Distress, minimal pain Eyes: Yes: WNL, Conjunctiva Clear HENT: Yes: WNL, Atraumatic, Normocephalic Neck: Yes: WNL, Supple, Trachea Midline Cardiovascular: Yes: WNL, Regular Rate and Rhythm Respiratory: Yes: WNL, Regular, CTA Bilaterally Gastrointestinal: Yes: WNL, Normal Bowel Sounds, Soft ...Rectal Exam: Yes: Deferred Genitourinary: Yes: Meraz Present (with blood tinged urine.), Scrotal Edema ( and penial edema noted), Other (subrapubic cath with blood tinged urine) Musculoskeletal: Yes: WNL Extremities: Yes: WNL Edema: Yes Edema: LLE: Trace, RLE: Trace Peripheral Pulses WNL: Yes Peripheral Pulses: Left Radial: 2+, Right Radial: 2+, Left Doralis Pedis: 2+, Right Dorsalis Pedis: 2+, Left Femoral: 2+, Right Femoral: 2+ Integumentary: Yes: WNL Wound/Incision: Yes: Dressing Dry and Intact (suprapubic dressing C/D/I) Neurological: Yes: WNL, Alert, Oriented ...Motor Strength: WNL Psychiatric: Yes: WNL Labs: CBC, BMP 08/31/19 07:10 Problem List - Problems (1) BPH loc w urin obs/LUTS Assessment/Plan: POD#3 from TURP with suprapubic cath meraz/suprapubic cath to gravity strict I/Os pain medication with oxycodone prn Code(s): N40.1 - BENIGN PROSTATIC HYPERPLASIA WITH LOWER URINARY TRACT SYMP (2) Diabetes type 2, controlled Assessment/Plan: BGM AC/HS with novolog sliding scale better controlled with increased levemir c/w increased levemir at 10u bid Code(s): E11.9 - TYPE 2 DIABETES MELLITUS WITHOUT COMPLICATIONS (3) HTN (hypertension) Assessment/Plan: normotensive c/w norvasc, hctz, valsartan Code(s): I10 - ESSENTIAL (PRIMARY) HYPERTENSION (4) Hematuria Assessment/Plan: urine blood tinged, no clots close monitoring for abrupt/decrease in UOP r/t clots Code(s): R31.9 - HEMATURIA, UNSPECIFIED (5) Hyperlipemia Assessment/Plan: c/w atorvastatin Code(s): E78.5 - HYPERLIPIDEMIA, UNSPECIFIED (6) Leukocytosis Assessment/Plan: resolving WBC 10.6 afebrile Code(s): D72.829 - ELEVATED WHITE BLOOD CELL COUNT, UNSPECIFIED (7) PAD (peripheral artery disease) Code(s): I73.9 - PERIPHERAL VASCULAR DISEASE, UNSPECIFIED (8) Prophylactic measure Assessment/Plan: FEN Fluids: adequate PO intake Electrolytes: monitor & replete as needed Nutrition: diabetic diet DVT OOB/SCD/ambulation Dispo Maintain as inpatient full code discharge planning Code(s): Z29.9 - ENCOUNTER FOR PROPHYLACTIC MEASURES, UNSPECIFIED (9) Constipation Assessment/Plan: remains on narcotics encourage ambulation and increased IVF c/w colace, senna Mag citrate/ ducolox and fleet enema if no relief Code(s): K59.00 - CONSTIPATION, UNSPECIFIED Visit type - Emergency Visit Emergency Visit: Yes ED Registration Date: 08/28/19 Care time: The patient presented to the Emergency Department on the above date and was hospitalized for further evaluation of their emergent condition. - New Patient This patient is new to me today: No - Critical Care Critical Care patient: No - Discharge Referral Referred to [facility] Med P.C.: No
[2019-08-31] MEDS ORDERED: PT OWN MED DRAWER 7, Y5N ONE (10:30)
[2019-08-31] MEDS: VALSARTAN 160 MG TABLET (UD) PO SCH (10:39)
[2019-08-31] MEDS: HYDROCHLOROTHIAZIDE 12.5 MG CAPSULE (FP) PO SCH (10:39)
[2019-08-31] MEDS: TAMSULOSIN HCL 0.4 MG CAP PO SCH (10:39)
[2019-08-31] MEDS: FINASTERIDE 5 MG TABLET (FP) PO SCH (10:39)
[2019-08-31] MEDS ORDERED: oxyCODONE HCL 5 MG TABLET PO PRN (11:24)
[2019-08-31] MEDS ORDERED: BISACODYL 5 MG TABLET.DR (FP) PO ONE (11:25)
[2019-08-31] MEDS ORDERED: SIMETHICONE 80 MG TAB.CHEW (FP) PO PRN (11:26)
[2019-08-31] MEDS ORDERED: MAGNESIUM CITRATE 300 ML BOTTLE PO PRN (11:26)
[2019-08-31] MEDS: ACETAMINOPHEN 325 MG TABLET (FP) PO PRN (12:08)
[2019-08-31] MEDS: DEXTROSE 5%-0.45% SALINE 1,000 ML IV SCH (12:09)
[2019-08-31] MEDS ORDERED: SODIUM PHOSPHATE/NA BIPHOS 133 ML ENEMA PR ONE (13:42)
--- NOTE | 2019-08-31 14:12 | PN ---
Progress Note, Physician History of Present Illness: still wiht quite a bit of hematuria sitting on chair - Current Medication List Current Medications: Active Medications Acetaminophen (Tylenol -) 650 mg PO Q6H PRN PRN Reason: PAIN LEVEL 1-5 Last Admin: 08/31/19 12:08 Dose: 650 mg Al Hydroxide/Mg Hydroxide (Mylanta Oral Suspension -) 30 ml PO Q6H PRN PRN Reason: DYSPEPSIA Last Admin: 08/30/19 22:31 Dose: 30 ml Albuterol Sulfate (Ventolin 0.083% Nebulizer Soln -) 1 amp NEB RQID PRN PRN Reason: SHORT OF BREATH/WHEEZING Amlodipine Besylate (Norvasc -) 5 mg PO HS [facility] Last Admin: 08/30/19 22:31 Dose: 5 mg Atorvastatin Calcium (Lipitor -) 20 mg PO [facility] Last Admin: 08/30/19 22:31 Dose: 20 mg Docusate Sodium (Colace -) 100 mg PO Q8H PRN PRN Reason: CONSTIPATION Last Admin: 08/30/19 10:08 Dose: 100 mg Finasteride (Proscar -) 5 mg PO DAILY [facility] Last Admin: 08/31/19 10:39 Dose: 5 mg Hydrochlorothiazide (Hctz -) 12.5 mg PO DAILY [facility] Last Admin: 08/31/19 10:39 Dose: 12.5 mg Meropenem 1 gm/ Dextrose 100 mls @ 200 mls/hr IVPB Q8H-IV [facility] Last Admin: 08/31/19 10:39 Dose: 200 mls/hr Insulin Aspart (Novolog Vial Sliding Scale -) 1 vial SQ [facility]; Protocol Last Admin: 08/31/19 12:08 Dose: 2 units Insulin Detemir (Levemir Vial) 10 units SQ BID@0700,2200 [facility] Last Admin: 08/31/19 06:33 Dose: 10 units Magnesium Citrate (Citroma -) 300 ml PO PRN PRN PRN Reason: CONSTIPATION Last Admin: 08/31/19 12:08 Dose: 300 ml Oxycodone HCl (Roxicodone -) 5 mg PO Q6H PRN PRN Reason: PAIN LEVEL 6-10 Senna (Senna -) 2 tab PO HS PRN PRN Reason: CONSTIPATION Last Admin: 08/30/19 13:33 Dose: 2 tab Simethicone (Mylicon -) 80 mg PO QID PRN PRN Reason: DYSPEPSIA Tamsulosin HCl (Flomax -) 0.4 mg PO DAILY@0830 [facility] Last Admin: 08/31/19 10:39 Dose: 0.4 mg Valsartan (Diovan -) 320 mg PO DAILY [facility] Last Admin: 08/31/19 10:39 Dose: 320 mg - Objective Vital Signs: Vital Signs Temperature 98.5 F 08/31/19 06:00 Pulse Rate 86 08/31/19 06:00 Respiratory Rate 08/31/19 06:00 Blood Pressure 119/59 L 08/31/19 06:00 O2 Sat by Pulse Oximetry (%) 95 08/30/19 19:58 Constitutional: Yes: No Distress, Calm Cardiovascular: Yes: S1, S2 Respiratory: Yes: Regular, CTA Bilaterally Gastrointestinal: Yes: Normal Bowel Sounds, Soft Genitourinary: Yes: [place] Present, Hematuria Musculoskeletal: Yes: WNL Extremities: Yes: WNL Neurological: Yes: Alert, Oriented Psychiatric: Yes: Alert, Oriented Labs: CBC, BMP 08/31/19 07:10 08/31/19 07:10 Assessment/Plan roblem List - Problems (1) BPH loc w urin obs/LUTS Code(s): N40.1 - BENIGN PROSTATIC HYPERPLASIA WITH LOWER URINARY TRACT SYMP (2) Diabetes type 2, controlled Code(s): E11.9 - TYPE 2 DIABETES MELLITUS WITHOUT COMPLICATIONS (3) HTN (hypertension) Code(s): I10 - ESSENTIAL (PRIMARY) HYPERTENSION (4) Hematuria Code(s): R31.9 - HEMATURIA, UNSPECIFIED (5) Hyperlipemia Code(s): E78.5 - HYPERLIPIDEMIA, UNSPECIFIED (6) Leukocytosis Code(s): D72.829 - ELEVATED WHITE BLOOD CELL COUNT, UNSPECIFIED (7) PAD (peripheral artery disease) Code(s): I73.9 - PERIPHERAL VASCULAR DISEASE, UNSPECIFIED complicated uti plan continue abx rest as per the team
[2019-08-31] MEDS: amLODIPine BESYLATE 5 MG TABLET (FP) PO SCH (21:17)
[2019-08-31] MEDS: ATORVASTATIN CA 20 MG TABLET (FP) PO SCH (21:17)
[2019-09-01] MEDS ORDERED: MEROPENEM 1 GM VIAL (RESTRICTED TO ID) IVPB ONE ×3 (02:26→18:15)
[2019-09-01] MEDS ORDERED: DEXTROSE 5%-WATER 100 ML IVPB ONE ×3 (02:26→18:15)
[2019-09-01] MEDS: MEROPENEM 1 GM in DEXTROSE 5%-WATER 100 ML IVPB SCH ×3 (02:31→18:57)
[2019-09-01] MEDS: INSULIN (LEVEMIR) 100 UNITS/ML UNITS SQ SCH ×2 (06:40→22:23)
[2019-09-01] MEDS: INSULIN SLIDING SCALE (NOVOLOG) 1 VIAL SQ SCH ×4 (06:40→22:24)
--- NOTE | 2019-09-01 08:43 | PN ---
Progress Note, Physician Chief Complaint: s/p TURP with suprapubic cath POD#4. c/o gas, +BM last night Meraz/suprapubic cath less blood tinged today History of Present Illness: 74 year old M with h/o DMII, HTN, BPH, and HLD presents for elective TURP. Post TURP pt developed sofy hematuria and severe scrotal edema. A suprapubic cyststomy was done and suprapubic catheter placed for continuous bladder irrigation. - Current Medication List Current Medications: Active Medications Acetaminophen (Tylenol -) 650 mg PO Q6H PRN PRN Reason: PAIN LEVEL 1-5 Last Admin: 08/31/19 12:08 Dose: 650 mg Al Hydroxide/Mg Hydroxide (Mylanta Oral Suspension -) 30 ml PO Q6H PRN PRN Reason: DYSPEPSIA Last Admin: 08/30/19 22:31 Dose: 30 ml Albuterol Sulfate (Ventolin 0.083% Nebulizer Soln -) 1 amp NEB RQID PRN PRN Reason: SHORT OF BREATH/WHEEZING Amlodipine Besylate (Norvasc -) 5 mg PO HS [facility] Last Admin: 08/31/19 21:17 Dose: 5 mg Atorvastatin Calcium (Lipitor -) 20 mg PO [facility] Last Admin: 08/31/19 21:17 Dose: 20 mg Docusate Sodium (Colace -) 100 mg PO Q8H PRN PRN Reason: CONSTIPATION Last Admin: 08/30/19 10:08 Dose: 100 mg Finasteride (Proscar -) 5 mg PO DAILY [facility] Last Admin: 08/31/19 10:39 Dose: 5 mg Hydrochlorothiazide (Hctz -) 12.5 mg PO DAILY [facility] Last Admin: 08/31/19 10:39 Dose: 12.5 mg Meropenem 1 gm/ Dextrose 100 mls @ 200 mls/hr IVPB Q8H-IV [facility] Last Admin: 09/01/19 02:31 Dose: 200 mls/hr Insulin Aspart (Novolog Vial Sliding Scale -) 1 vial SQ ACHS [facility]; Protocol Last Admin: 09/01/19 06:40 Dose: Not Given Insulin Detemir (Levemir Vial) 10 units SQ BID@0700,2200 [facility] Last Admin: 09/01/19 06:40 Dose: Not Given Magnesium Citrate (Citroma -) 300 ml PO PRN PRN PRN Reason: CONSTIPATION Last Admin: 08/31/19 12:08 Dose: 300 ml Oxycodone HCl (Roxicodone -) 5 mg PO Q6H PRN PRN Reason: PAIN LEVEL 6-10 Senna (Senna -) 2 tab PO HS PRN PRN Reason: CONSTIPATION Last Admin: 08/30/19 13:33 Dose: 2 tab Simethicone (Mylicon -) 80 mg PO QID PRN PRN Reason: DYSPEPSIA Tamsulosin HCl (Flomax -) 0.4 mg PO DAILY@0830 [facility] Last Admin: 08/31/19 10:39 Dose: 0.4 mg Valsartan (Diovan -) 320 mg PO DAILY [facility] Last Admin: 08/31/19 10:39 Dose: 320 mg - Objective Vital Signs: Vital Signs Temperature 98.5 F 09/01/19 06:40 Pulse Rate 102 H 09/01/19 06:40 Respiratory Rate 20 09/01/19 06:40 Blood Pressure 121/60 09/01/19 06:40 O2 Sat by Pulse Oximetry (%) 97 08/31/19 21:00 Additional Findings/Remarks: Constitutional: Yes: Well Nourished, no Distress, minimal pain Eyes: Yes: WNL, Conjunctiva Clear HENT: Yes: WNL, Atraumatic, Normocephalic Neck: Yes: WNL, Supple, Trachea Midline Cardiovascular: Yes: WNL, Regular Rate and Rhythm Respiratory: Yes: WNL, Regular, CTA Bilaterally Gastrointestinal: Yes: WNL, Normal Bowel Sounds, Soft ...Rectal Exam: Yes: Deferred Genitourinary: Yes: Meraz Present (with clear urine., Other (subrapubic cath with clear urine) Musculoskeletal: Yes: WNL Extremities: Yes: WNL Edema: Yes Edema: LLE: Trace, RLE: Trace Peripheral Pulses WNL: Yes Peripheral Pulses: Left Radial: 2+, Right Radial: 2+, Left Doralis Pedis: 2+, Right Dorsalis Pedis: 2+, Left Femoral: 2+, Right Femoral: 2+ Integumentary: Yes: WNL Wound/Incision: Yes: Dressing Dry and Intact (suprapubic dressing C/D/I) Neurological: Yes: WNL, Alert, Oriented ...Motor Strength: WNL Psychiatric: Yes: WNL Labs: CBC, BMP 08/31/19 07:10 08/31/19 07:10 Problem List - Problems (1) BPH loc w urin obs/LUTS Assessment/Plan: POD#4 from TURP with suprapubic cath meraz/suprapubic cath to gravity strict I/Os pain medication with oxycodone prn Code(s): N40.1 - BENIGN PROSTATIC HYPERPLASIA WITH LOWER URINARY TRACT SYMP (2) Diabetes type 2, controlled Assessment/Plan: BGM AC/HS with novolog sliding scale better controlled with increased levemir c/w increased levemir at 10u bid Code(s): E11.9 - TYPE 2 DIABETES MELLITUS WITHOUT COMPLICATIONS (3) HTN (hypertension) Assessment/Plan: normotensive c/w norvasc, hctz, valsartan Code(s): I10 - ESSENTIAL (PRIMARY) HYPERTENSION (4) Hematuria Assessment/Plan: resolving close monitoring for abrupt/decrease in UOP r/t clots Code(s): R31.9 - HEMATURIA, UNSPECIFIED (5) Hyperlipemia Assessment/Plan: c/w atorvastatin Code(s): E78.5 - HYPERLIPIDEMIA, UNSPECIFIED (6) Leukocytosis Assessment/Plan: resolving WBC 10.3 afebrile Code(s): D72.829 - ELEVATED WHITE BLOOD CELL COUNT, UNSPECIFIED (7) PAD (peripheral artery disease) Code(s): I73.9 - PERIPHERAL VASCULAR DISEASE, UNSPECIFIED (8) Prophylactic measure Assessment/Plan: FEN Fluids: adequate PO intake Electrolytes: monitor & replete as needed Nutrition: diabetic diet DVT OOB/SCD/ambulation Dispo Maintain as inpatient full code discharge planning Code(s): Z29.9 - ENCOUNTER FOR PROPHYLACTIC MEASURES, UNSPECIFIED (9) Constipation Assessment/Plan: + BM overnight remains on narcotics encourage ambulation c/w colace, senna Code(s): K59.00 - CONSTIPATION, UNSPECIFIED Visit type - Emergency Visit Emergency Visit: Yes ED Registration Date: 08/28/19 Care time: The patient presented to the Emergency Department on the above date and was hospitalized for further evaluation of their emergent condition. - New Patient This patient is new to me today: No - Critical Care Critical Care patient: No - Discharge Referral Referred to [facility] Med P.C.: No
[2019-09-01] MEDS: HYDROCHLOROTHIAZIDE 12.5 MG CAPSULE (FP) PO SCH (09:57)
[2019-09-01] MEDS: DOCUSATE SODIUM 100 MG CAPSULE (FP) PO PRN (09:57)
[2019-09-01] MEDS: TAMSULOSIN HCL 0.4 MG CAP PO SCH (09:57)
[2019-09-01] MEDS: VALSARTAN 160 MG TABLET (UD) PO SCH (09:57)
[2019-09-01] MEDS: FINASTERIDE 5 MG TABLET (FP) PO SCH (09:58)
[2019-09-01 10:19] LABS: BASO % 0.1 % (0-2.0); HEMOGLOBIN 9.5 GM/dL (11.7-16.9); LYMPH % 8.2 % (8-40); MCH 34.6 pg (25.7-33.7); MEAN CELL VOLUME 101.9 fl (80-96); MEAN PLT VOLUME 9.4 fl (7.5-11.1); MONO % 12.5 % (3.8-10.2); NEUT % 78.2 % (42.8-82.8); PLATELET COUNT 240 K/MM3 (134-434); RBC 2.75 M/mm3 (4.00-5.60); RDW 12.9 % (11.9-15.9); WHITE BLOOD COUNT 10.3 K/mm3 (4.0-10.0)
[2019-09-01 10:36] LABS: BILIRUBIN,TOTAL 1.4 mg/dL (0.2-1); BLOOD UREA NITROGEN 11.6 mg/dL (7-18); CALCIUM 8.7 mg/dL (8.5-10.1); MAGNESIUM 2.3 mg/dL (1.8-2.4); TOT PROT 6.4 g/dl (6.4-8.2)
[2019-09-01] MEDS: chlorproMAZINE HCL 25 MG TABLET PO SCH ×2 (15:36→22:25)
--- NOTE | 2019-09-01 20:14 | PN ---
Progress Note, Physician History of Present Illness: Pt is alert, afebrile. States pain is controlled. Hematuria improving. - Current Medication List Current Medications: Active Medications Acetaminophen (Tylenol -) 650 mg PO Q6H PRN PRN Reason: PAIN LEVEL 1-5 Last Admin: 08/31/19 12:08 Dose: 650 mg Al Hydroxide/Mg Hydroxide (Mylanta Oral Suspension -) 30 ml PO Q6H PRN PRN Reason: DYSPEPSIA Last Admin: 08/30/19 22:31 Dose: 30 ml Albuterol Sulfate (Ventolin 0.083% Nebulizer Soln -) 1 amp NEB RQID PRN PRN Reason: SHORT OF BREATH/WHEEZING Amlodipine Besylate (Norvasc -) 5 mg PO HS [facility] Last Admin: 08/31/19 21:17 Dose: 5 mg Atorvastatin Calcium (Lipitor -) 20 mg PO [facility] Last Admin: 08/31/19 21:17 Dose: 20 mg Chlorpromazine HCl (Thorazine -) 25 mg PO TID [facility] Stop: 09/03/19 14:29 Last Admin: 09/01/19 15:36 Dose: 25 mg Docusate Sodium (Colace -) 100 mg PO Q8H PRN PRN Reason: CONSTIPATION Last Admin: 09/01/19 09:57 Dose: 100 mg Finasteride (Proscar -) 5 mg PO DAILY [facility] Last Admin: 09/01/19 09:58 Dose: 5 mg Hydrochlorothiazide (Hctz -) 12.5 mg PO DAILY [facility] Last Admin: 09/01/19 09:57 Dose: 12.5 mg Meropenem 1 gm/ Dextrose 100 mls @ 200 mls/hr IVPB Q8H-IV [facility] Last Admin: 09/01/19 18:57 Dose: 200 mls/hr Insulin Aspart (Novolog Vial Sliding Scale -) 1 vial SQ ACHS [facility]; Protocol Last Admin: 09/01/19 18:10 Dose: 2 units Insulin Detemir (Levemir Vial) 10 units SQ BID@0700,2200 [facility] Last Admin: 09/01/19 06:40 Dose: Not Given Magnesium Citrate (Citroma -) 300 ml PO PRN PRN PRN Reason: CONSTIPATION Last Admin: 08/31/19 12:08 Dose: 300 ml Oxycodone HCl (Roxicodone -) 5 mg PO Q6H PRN PRN Reason: PAIN LEVEL 6-10 Last Admin: 09/01/19 09:57 Dose: 5 mg Senna (Senna -) 2 tab PO HS PRN PRN Reason: CONSTIPATION Last Admin: 08/30/19 13:33 Dose: 2 tab Simethicone (Mylicon -) 80 mg PO QID PRN PRN Reason: DYSPEPSIA Last Admin: 09/01/19 11:29 Dose: 80 mg Tamsulosin HCl (Flomax -) 0.4 mg PO DAILY@0830 [facility] Last Admin: 09/01/19 09:57 Dose: 0.4 mg Valsartan (Diovan -) 320 mg PO DAILY [facility] Last Admin: 09/01/19 09:57 Dose: 320 mg - Objective Vital Signs: Vital Signs Temperature 98.4 F 09/01/19 17:17 Pulse Rate 83 09/01/19 17:17 Respiratory Rate 18 09/01/19 17:17 Blood Pressure 112/50 L 09/01/19 17:17 O2 Sat by Pulse Oximetry (%) 97 08/31/19 21:00 Constitutional: Yes: No Distress, Calm Cardiovascular: Yes: Regular Rate and Rhythm Respiratory: Yes: Regular Gastrointestinal: Yes: Normal Bowel Sounds, Soft Genitourinary: Yes: Other (SPC) Integumentary: Yes: WNL Neurological: Yes: Alert Labs: CBC, BMP 09/01/19 08:00 09/01/19 08:00 Microbiology 08/29/19 21:00 Blood - Peripheral Venous Blood Culture - Preliminary NO GROWTH OBTAINED AFTER 48 HOURS, INCUBATION TO CONTINUE FOR 3 DAYS. 08/29/19 21:00 Blood - Peripheral Venous Blood Culture - Preliminary NO GROWTH OBTAINED AFTER 48 HOURS, INCUBATION TO CONTINUE FOR 3 DAYS. 08/28/19 13:00 Urine - Urine, Via Cystoscope Urine Culture - Final Klebsiella Pneumoniae - Esbl Problem List - Problems (1) BPH loc w urin obs/LUTS Code(s): N40.1 - BENIGN PROSTATIC HYPERPLASIA WITH LOWER URINARY TRACT SYMP (2) Diabetes type 2, controlled Code(s): E11.9 - TYPE 2 DIABETES MELLITUS WITHOUT COMPLICATIONS (3) HTN (hypertension) Code(s): I10 - ESSENTIAL (PRIMARY) HYPERTENSION (4) Hematuria Code(s): R31.9 - HEMATURIA, UNSPECIFIED (5) Hyperlipemia Code(s): E78.5 - HYPERLIPIDEMIA, UNSPECIFIED (6) Leukocytosis Code(s): D72.829 - ELEVATED WHITE BLOOD CELL COUNT, UNSPECIFIED Assessment/Plan ESBL+ Klebsiella UTI BPH s/p TURP/SPC Hematuria Leukoccytosis -- continue Meropenem -- wbc trended down, hematuria resolving continue monitor
[2019-09-01] MEDS ORDERED: INSULIN (NOVOLOG) ASPART 100 UNITS/ML 10ML VIAL ONE (21:03)
[2019-09-01] MEDS ORDERED: PT OWN MED DRAWER 7, Y5N ONE (21:04)
[2019-09-01] MEDS: ATORVASTATIN CA 20 MG TABLET (FP) PO SCH (22:23)
[2019-09-01] MEDS: amLODIPine BESYLATE 5 MG TABLET (FP) PO SCH (22:23)
[2019-09-02] MEDS ORDERED: MEROPENEM 1 GM VIAL (RESTRICTED TO ID) IVPB ONE ×3 (01:58→18:21)
[2019-09-02] MEDS ORDERED: DEXTROSE 5%-WATER 100 ML IVPB ONE ×3 (01:58→18:21)
[2019-09-02] MEDS: MEROPENEM 1 GM in DEXTROSE 5%-WATER 100 ML IVPB SCH ×3 (02:09→18:31)
[2019-09-02] MEDS: INSULIN SLIDING SCALE (NOVOLOG) 1 VIAL SQ SCH ×4 (06:13→23:45)
[2019-09-02] MEDS: INSULIN (LEVEMIR) 100 UNITS/ML UNITS SQ SCH ×2 (06:14→23:42)
[2019-09-02] MEDS: chlorproMAZINE HCL 25 MG TABLET PO SCH ×2 (06:14→15:16)
--- NOTE | 2019-09-02 08:03 | PN ---
Progress Note, Physician Chief Complaint: s/p TURP with suprapubic cath POD#4. Meraz/suprapubic cath clear. C/o right tor pain History of Present Illness: 74 year old M with h/o DMII, HTN, BPH, and HLD presents for elective TURP. Post TURP pt developed sofy hematuria and severe scrotal edema. A suprapubic cyststomy was done and suprapubic catheter placed for continuous bladder irrigation. - Current Medication List Current Medications: Active Medications Acetaminophen (Tylenol -) 650 mg PO Q6H PRN PRN Reason: PAIN LEVEL 1-5 Last Admin: 08/31/19 12:08 Dose: 650 mg Al Hydroxide/Mg Hydroxide (Mylanta Oral Suspension -) 30 ml PO Q6H PRN PRN Reason: DYSPEPSIA Last Admin: 08/30/19 22:31 Dose: 30 ml Albuterol Sulfate (Ventolin 0.083% Nebulizer Soln -) 1 amp NEB RQID PRN PRN Reason: SHORT OF BREATH/WHEEZING Amlodipine Besylate (Norvasc -) 5 mg PO HS [facility] Last Admin: 09/01/19 22:23 Dose: Not Given Atorvastatin Calcium (Lipitor -) 20 mg PO HS [facility] Last Admin: 09/01/19 22:23 Dose: 20 mg Chlorpromazine HCl (Thorazine -) 25 mg PO TID [facility] Stop: 09/03/19 14:29 Last Admin: 09/02/19 06:14 Dose: 25 mg Docusate Sodium (Colace -) 100 mg PO Q8H PRN PRN Reason: CONSTIPATION Last Admin: 09/01/19 09:57 Dose: 100 mg Finasteride (Proscar -) 5 mg PO DAILY [facility] Last Admin: 09/01/19 09:58 Dose: 5 mg Hydrochlorothiazide (Hctz -) 12.5 mg PO DAILY [facility] Last Admin: 09/01/19 09:57 Dose: 12.5 mg Meropenem 1 gm/ Dextrose 100 mls @ 200 mls/hr IVPB Q8H-IV [facility] Last Admin: 09/02/19 02:09 Dose: 200 mls/hr Insulin Aspart (Novolog Vial Sliding Scale -) 1 vial SQ ACHS [facility]; Protocol Last Admin: 09/02/19 06:13 Dose: Not Given Insulin Detemir (Levemir Vial) 10 units SQ BID@0700,2200 [facility] Last Admin: 09/02/19 06:14 Dose: 10 units Magnesium Citrate (Citroma -) 300 ml PO PRN PRN PRN Reason: CONSTIPATION Last Admin: 08/31/19 12:08 Dose: 300 ml Oxycodone HCl (Roxicodone -) 5 mg PO Q6H PRN PRN Reason: PAIN LEVEL 6-10 Last Admin: 09/01/19 09:57 Dose: 5 mg Senna (Senna -) 2 tab PO HS PRN PRN Reason: CONSTIPATION Last Admin: 08/30/19 13:33 Dose: 2 tab Simethicone (Mylicon -) 80 mg PO QID PRN PRN Reason: DYSPEPSIA Last Admin: 09/01/19 11:29 Dose: 80 mg Tamsulosin HCl (Flomax -) 0.4 mg PO DAILY@0830 [facility] Last Admin: 09/01/19 09:57 Dose: 0.4 mg Valsartan (Diovan -) 320 mg PO DAILY [facility] Last Admin: 09/01/19 09:57 Dose: 320 mg - Objective Vital Signs: Vital Signs Temperature 97.9 F 09/02/19 06:00 Pulse Rate 78 09/02/19 06:00 Respiratory Rate 20 09/02/19 06:00 Blood Pressure 97/44 L 09/02/19 06:00 O2 Sat by Pulse Oximetry (%) 95 09/01/19 21:00 Additional Findings/Remarks: Constitutional: Yes: Well Nourished, no Distress, minimal pain Eyes: Yes: WNL, Conjunctiva Clear HENT: Yes: WNL, Atraumatic, Normocephalic Neck: Yes: WNL, Supple, Trachea Midline Cardiovascular: Yes: WNL, Regular Rate and Rhythm Respiratory: Yes: WNL, Regular, CTA Bilaterally Gastrointestinal: Yes: WNL, Normal Bowel Sounds, Soft ...Rectal Exam: Yes: Deferred Genitourinary: Yes: Meraz Present (with clear urine., Other (subrapubic cath with clear urine) Musculoskeletal: Yes: WNL Extremities: Yes: WNL. Pain to right toe Edema: Yes Edema: LLE: Trace, RLE: Trace Peripheral Pulses WNL: Yes Peripheral Pulses: Left Radial: 2+, Right Radial: 2+, Left Doralis Pedis: 2+, Right Dorsalis Pedis: 2+, Left Femoral: 2+, Right Femoral: 2+ Integumentary: Yes: WNL Wound/Incision: Yes: Dressing Dry and Intact (suprapubic dressing C/D/I) Neurological: Yes: WNL, Alert, Oriented ...Motor Strength: WNL Psychiatric: Yes: WNL Labs: CBC, BMP 09/01/19 08:00 09/01/19 08:00 Problem List - Problems (1) BPH loc w urin obs/LUTS Assessment/Plan: POD#4 from TURP with suprapubic cath meraz/suprapubic cath to gravity strict I/Os pain medication with oxycodone prn Code(s): N40.1 - BENIGN PROSTATIC HYPERPLASIA WITH LOWER URINARY TRACT SYMP (2) Diabetes type 2, controlled Assessment/Plan: BGM AC/HS with novolog sliding scale better controlled with increased levemir c/w increased levemir at 10u bid Code(s): E11.9 - TYPE 2 DIABETES MELLITUS WITHOUT COMPLICATIONS (3) HTN (hypertension) Assessment/Plan: normotensive c/w norvasc, hctz, valsartan Code(s): I10 - ESSENTIAL (PRIMARY) HYPERTENSION (4) Hematuria Assessment/Plan: resolving urine clearer today from both catheters close monitoring for abrupt/decrease in UOP r/t clots Code(s): R31.9 - HEMATURIA, UNSPECIFIED (5) Hyperlipemia Assessment/Plan: c/w atorvastatin Code(s): E78.5 - HYPERLIPIDEMIA, UNSPECIFIED (6) Leukocytosis Assessment/Plan: resolving WBC 6.8 afebrile Code(s): D72.829 - ELEVATED WHITE BLOOD CELL COUNT, UNSPECIFIED (7) PAD (peripheral artery disease) Code(s): I73.9 - PERIPHERAL VASCULAR DISEASE, UNSPECIFIED (8) Prophylactic measure Assessment/Plan: FEN Fluids: adequate PO intake Electrolytes: monitor & replete as needed Nutrition: diabetic diet DVT OOB/SCD/ambulation Dispo Maintain as inpatient full code discharge planning-spoke with SW about possible dc to SNF Code(s): Z29.9 - ENCOUNTER FOR PROPHYLACTIC MEASURES, UNSPECIFIED (9) Constipation Assessment/Plan: resolved remains on narcotics encourage ambulation c/w colace, senna Code(s): K59.00 - CONSTIPATION, UNSPECIFIED (10) Urinary tract infection due to ESBL Klebsiella Assessment/Plan: ESBL/klebsiella in urine isolation precautions on meropene day 11/26 Picc requested for tues for home/snf infusion therapy Code(s): N39.0 - URINARY TRACT INFECTION, SITE NOT SPECIFIED; B96.89 - OTH BACTERIAL AGENTS THE CAUSE OF DISEASES CLASSD ELSWHR Visit type - Emergency Visit Emergency Visit: Yes ED Registration Date: 08/28/19 Care time: The patient presented to the Emergency Department on the above date and was hospitalized for further evaluation of their emergent condition. - New Patient This patient is new to me today: No - Critical Care Critical Care patient: No - Discharge Referral Referred to [facility] Med P.C.: No
[2019-09-02] MEDS: TAMSULOSIN HCL 0.4 MG CAP PO SCH (08:14)
[2019-09-02 09:52] LABS: BASO % 0.2 % (0-2.0); EOS % 1.8 % (0-4.5); HEMATOCRIT 25.5 % (35.4-49); HEMOGLOBIN 8.8 GM/dL (11.7-16.9); LYMPH % 18.8 % (8-40); MCH 35.1 pg (25.7-33.7); MCHC 34.4 g/dl (32.0-35.9); MEAN CELL VOLUME 101.9 fl (80-96); MEAN PLT VOLUME 8.9 fl (7.5-11.1); MONO % 16.5 % (3.8-10.2); NEUT % 62.7 % (42.8-82.8); PLATELET COUNT 228 K/MM3 (134-434); RDW 12.8 % (11.9-15.9); WHITE BLOOD COUNT 6.8 K/mm3 (4.0-10.0)
[2019-09-02 10:23] LABS: ALBUMIN 2.6 g/dl (3.4-5.0); BILIRUBIN,TOTAL 1.2 mg/dL (0.2-1); BLOOD UREA NITROGEN 15.4 mg/dL (7-18); CALCIUM 8.7 mg/dL (8.5-10.1); CREATININE 1.1 mg/dL (0.55-1.3); MAGNESIUM 2.4 mg/dL (1.8-2.4); POTASSIUM 3.8 mmol/L (3.5-5.1); TOT PROT 5.6 g/dl (6.4-8.2)
[2019-09-02] MEDS: FINASTERIDE 5 MG TABLET (FP) PO SCH (11:28)
[2019-09-02] MEDS: HYDROCHLOROTHIAZIDE 12.5 MG CAPSULE (FP) PO SCH (11:29)
[2019-09-02] MEDS: VALSARTAN 160 MG TABLET (UD) PO SCH (11:29)
[2019-09-02 13:21] LABS: ANISOCYTOSIS 1+; MACROCYTOSIS 0; PLATELET ESTIMATE NORMAL
--- NOTE | 2019-09-02 21:40 | PN ---
Progress Note, Physician History of Present Illness: Pt alert, afebrile. Hematuria resolved. No specific complaints. - Current Medication List Current Medications: Active Medications Acetaminophen (Tylenol -) 650 mg PO Q6H PRN PRN Reason: PAIN LEVEL 1-5 Last Admin: 08/31/19 12:08 Dose: 650 mg Al Hydroxide/Mg Hydroxide (Mylanta Oral Suspension -) 30 ml PO Q6H PRN PRN Reason: DYSPEPSIA Last Admin: 08/30/19 22:31 Dose: 30 ml Albuterol Sulfate (Ventolin 0.083% Nebulizer Soln -) 1 amp NEB RQID PRN PRN Reason: SHORT OF BREATH/WHEEZING Amlodipine Besylate (Norvasc -) 5 mg PO HS [facility] Last Admin: 09/01/19 22:23 Dose: Not Given Atorvastatin Calcium (Lipitor -) 20 mg PO [facility] Last Admin: 09/01/19 22:23 Dose: 20 mg Chlorpromazine HCl (Thorazine -) 25 mg PO TID [facility] Stop: 09/03/19 14:29 Last Admin: 09/02/19 15:16 Dose: Not Given Docusate Sodium (Colace -) 100 mg PO Q8H PRN PRN Reason: CONSTIPATION Last Admin: 09/01/19 09:57 Dose: 100 mg Finasteride (Proscar -) 5 mg PO DAILY [facility] Last Admin: 09/02/19 11:28 Dose: 5 mg Hydrochlorothiazide (Hctz -) 12.5 mg PO DAILY [facility] Last Admin: 09/02/19 11:29 Dose: 12.5 mg Meropenem 1 gm/ Dextrose 100 mls @ 200 mls/hr IVPB Q8H-IV [facility] Last Admin: 09/02/19 18:31 Dose: 200 mls/hr Insulin Aspart (Novolog Vial Sliding Scale -) 1 vial SQ ACHS [facility]; Protocol Last Admin: 09/02/19 17:57 Dose: 2 units Insulin Detemir (Levemir Vial) 10 units SQ BID@0700,2200 [facility] Last Admin: 09/02/19 06:14 Dose: 10 units Magnesium Citrate (Citroma -) 300 ml PO PRN PRN PRN Reason: CONSTIPATION Last Admin: 08/31/19 12:08 Dose: 300 ml Oxycodone HCl (Roxicodone -) 5 mg PO Q6H PRN PRN Reason: PAIN LEVEL 6-10 Last Admin: 09/01/19 09:57 Dose: 5 mg Senna (Senna -) 2 tab PO HS PRN PRN Reason: CONSTIPATION Last Admin: 08/30/19 13:33 Dose: 2 tab Simethicone (Mylicon -) 80 mg PO QID PRN PRN Reason: DYSPEPSIA Last Admin: 09/01/19 11:29 Dose: 80 mg Tamsulosin HCl (Flomax -) 0.4 mg PO DAILY@0830 [facility] Last Admin: 09/02/19 08:14 Dose: 0.4 mg Valsartan (Diovan -) 320 mg PO DAILY [facility] Last Admin: 09/02/19 11:29 Dose: 320 mg - Objective Vital Signs: Vital Signs Temperature 98.0 F 09/02/19 17:27 Pulse Rate 86 09/02/19 17:27 Respiratory Rate 20 09/02/19 17:27 Blood Pressure 124/60 09/02/19 17:27 O2 Sat by Pulse Oximetry (%) 95 09/01/19 21:00 Constitutional: Yes: No Distress Cardiovascular: Yes: Regular Rate and Rhythm Respiratory: Yes: CTA Bilaterally Gastrointestinal: Yes: Normal Bowel Sounds, Soft Genitourinary: Yes: Other (meraz/spc urine clear) Extremities: Yes: WNL Neurological: Yes: Alert Labs: CBC, BMP 09/02/19 07:45 09/02/19 07:45 Microbiology 08/29/19 21:00 Blood - Peripheral Venous Blood Culture - Preliminary NO GROWTH OBTAINED AFTER 96 HOURS, INCUBATION TO CONTINUE FOR 1 DAYS. 08/29/19 21:00 Blood - Peripheral Venous Blood Culture - Preliminary NO GROWTH OBTAINED AFTER 96 HOURS, INCUBATION TO CONTINUE FOR 1 DAYS. 08/28/19 13:00 Urine - Urine, Via Cystoscope Urine Culture - Final Klebsiella Pneumoniae - Esbl Problem List - Problems (1) BPH loc w urin obs/LUTS Code(s): N40.1 - BENIGN PROSTATIC HYPERPLASIA WITH LOWER URINARY TRACT SYMP (2) Diabetes type 2, controlled Code(s): E11.9 - TYPE 2 DIABETES MELLITUS WITHOUT COMPLICATIONS (3) HTN (hypertension) Code(s): I10 - ESSENTIAL (PRIMARY) HYPERTENSION (4) Hematuria Code(s): R31.9 - HEMATURIA, UNSPECIFIED (5) Hyperlipemia Code(s): E78.5 - HYPERLIPIDEMIA, UNSPECIFIED (6) Leukocytosis Code(s): D72.829 - ELEVATED WHITE BLOOD CELL COUNT, UNSPECIFIED Assessment/Plan ESBL+ Klebsiella UTI BPH s/p TURP/SPC Hematuria - resolved Leukoccytosis - resolved -- continue Meropenem -- wbc now normal, vitals stable -- follow up continue monitor
[2019-09-02] MEDS: ATORVASTATIN CA 20 MG TABLET (FP) PO SCH (23:52)
[2019-09-02] MEDS: amLODIPine BESYLATE 5 MG TABLET (FP) PO SCH (23:52)
[2019-09-03] MEDS ORDERED: PT OWN MED DRAWER 7, Y5N ONE ×3 (00:02→14:13)
[2019-09-03] MEDS: chlorproMAZINE HCL 25 MG TABLET PO SCH ×3 (00:13→13:58)
[2019-09-03] MEDS ORDERED: DEXTROSE 5%-WATER 100 ML IVPB ONE ×3 (01:17→17:24)
[2019-09-03] MEDS ORDERED: MEROPENEM 1 GM VIAL (RESTRICTED TO ID) IVPB ONE ×3 (01:17→17:24)
[2019-09-03] MEDS: MEROPENEM 1 GM in DEXTROSE 5%-WATER 100 ML IVPB SCH ×3 (01:40→18:03)
[2019-09-03 01:57] LABS: URIC ACID 4.7 mg/dL (2.6-7.2)
[2019-09-03] MEDS: INSULIN (LEVEMIR) 100 UNITS/ML UNITS SQ SCH ×2 (07:10→22:58)
[2019-09-03] MEDS: INSULIN SLIDING SCALE (NOVOLOG) 1 VIAL SQ SCH ×4 (07:11→22:59)
[2019-09-03 08:06] LABS: BASO % 0.2 % (0-2.0); EOS % 2.4 % (0-4.5); HEMOGLOBIN 8.2 GM/dL (11.7-16.9); LYMPH % 21.5 % (8-40); MCH 34.9 pg (25.7-33.7); MCHC 34.2 g/dl (32.0-35.9); MEAN PLT VOLUME 8.8 fl (7.5-11.1); MONO % 15.8 % (3.8-10.2); NEUT % 60.1 % (42.8-82.8); PLATELET COUNT 231 K/MM3 (134-434); RBC 2.36 M/mm3 (4.00-5.60); RDW 12.9 % (11.9-15.9); WHITE BLOOD COUNT 7.3 K/mm3 (4.0-10.0)
[2019-09-03 08:23] LABS: ALBUMIN 2.6 g/dl (3.4-5.0); BLOOD UREA NITROGEN 12.3 mg/dL (7-18); CALCIUM 8.6 mg/dL (8.5-10.1); CREATININE 0.9 mg/dL (0.55-1.3); MAGNESIUM 2.2 mg/dL (1.8-2.4); POTASSIUM 3.7 mmol/L (3.5-5.1); TOT PROT 5.8 g/dl (6.4-8.2)
--- NOTE | 2019-09-03 09:10 | PN ---
Physical Exam: SUBJECTIVE: Patient seen and examined at the bedside. no pain reported, no discomfort. OBJECTIVE: suprapubic cath with ,10cc pink tinged meraz cath with 200cc fabrizio clear urine Patient is a 74 year old male with a significant past medical history of diabetes 2, hypertension, bph, hld who presents for an electic TURP. Post procedure, developed sofy hematuria and severe scrotal edema. A suprapubic cyststomy was done and suprapubic catheter placed for continuous bladder irrigation. Patient currently with suprapubic cathether and meraz catheter. He is on day 5 of meropenem for ESBL+ Klebsiella UTI ------ Vital Signs Period Temp Pulse Resp BP Sys/Holman Pulse Ox Last 24 Hr 97.6 F-98.3 F 78-88 15-20 109-130/54-63 95 GENERAL: The patient is awake, alert, and fully oriented, in no acute distress. HEAD: Normal with no signs of trauma. EYES: PERRL, extraocular movements intact, sclera anicteric, conjunctiva clear. No ptosis. ENT: Ears normal, nares patent, oropharynx clear without exudates, moist mucous membranes. NECK: Trachea midline, full range of motion, supple. LUNGS: Breath sounds equal, clear to auscultation bilaterally, no wheezes HEART: Regular rate and rhythm ABDOMEN: Soft, nontender, nondistended, normoactive bowel sounds EXTREMITIES: no edema. NEUROLOGICAL: Normal speech, gait not observed. PSYCH: Normal mood, normal affect. SKIN: Warm, dry, normal turgor, no rashes or lesions noted Laboratory Results - last 24 hr 09/02/19 09/02/19 09/02/19 07:45 07:45 12:38 WBC 6.8 RBC 2.50 L Hgb 8.8 L Hct 25.5 L MCV 101.9 H MCH 35.1 H MCHC 34.4 RDW 12.8 Plt Count 228 MPV 8.9 Absolute Neuts (auto) 4.3 Neutrophils % 62.7 Neutrophils % (Manual) 63.0 Band Neutrophils % 1.0 Lymphocytes % 18.8 D Lymphocytes % (Manual) 17.0 Monocytes % 16.5 H Monocytes % (Manual) 13 H Eosinophils % 1.8 Eosinophils % (Manual) 2.0 Basophils % 0.2 Basophils % (Manual) 0.0 Myelocytes % (Man) 0 Promyelocytes % (Man) 0 Blast Cells % (Manual) 0 Nucleated RBC % 1 H Metamyelocytes 0 Hypochromia 0 Platelet Estimate Normal Platelet Comment Present Polychromasia 1+ Poikilocytosis 0 Anisocytosis 1+ Microcytosis 1+ Macrocytosis 0 Spherocytes 1+ Sodium 138 Potassium 3.8 Chloride 102 Carbon Dioxide 32 Anion Gap 5 L BUN 15.4 Creatinine 1.1 Est GFR (CKD-EPI)AfAm 75.18 Est GFR (CKD-EPI)NonAf 64.86 POC Glucometer 169 Random Glucose 146 H Uric Acid 4.7 Calcium 8.7 Magnesium 2.4 Total Bilirubin 1.2 H AST 16 ALT 17 Alkaline Phosphatase 86 Total Protein 5.6 L Albumin 2.6 L 09/02/19 09/02/19 09/03/19 17:56 23:41 06:47 WBC 7.3 RBC 2.36 L Hgb 8.2 L Hct 24.0 L MCV 102.0 H MCH 34.9 H MCHC 34.2 RDW 12.9 Plt Count 231 MPV 8.8 Absolute Neuts (auto) 4.4 Neutrophils % 60.1 Neutrophils % (Manual) Band Neutrophils % Lymphocytes % 21.5 Lymphocytes % (Manual) Monocytes % 15.8 H Monocytes % (Manual) Eosinophils % 2.4 Eosinophils % (Manual) Basophils % 0.2 Basophils % (Manual) Myelocytes % (Man) Promyelocytes % (Man) Blast Cells % (Manual) Nucleated RBC % 0 Metamyelocytes Hypochromia Platelet Estimate Platelet Comment Polychromasia Poikilocytosis Anisocytosis Microcytosis Macrocytosis Spherocytes Sodium Potassium Chloride Carbon Dioxide Anion Gap BUN Creatinine Est GFR (CKD-EPI)AfAm Est GFR (CKD-EPI)NonAf POC Glucometer 198 181 Random Glucose Uric Acid Calcium Magnesium Total Bilirubin AST ALT Alkaline Phosphatase Total Protein Albumin 09/03/19 09/03/19 06:47 07:06 WBC RBC Hgb Hct MCV MCH MCHC RDW Plt Count MPV Absolute Neuts (auto) Neutrophils % Neutrophils % (Manual) Band Neutrophils % Lymphocytes % Lymphocytes % (Manual) Monocytes % Monocytes % (Manual) Eosinophils % Eosinophils % (Manual) Basophils % Basophils % (Manual) Myelocytes % (Man) Promyelocytes % (Man) Blast Cells % (Manual) Nucleated RBC % Metamyelocytes Hypochromia Platelet Estimate Platelet Comment Polychromasia Poikilocytosis Anisocytosis Microcytosis Macrocytosis Spherocytes Sodium 138 Potassium 3.7 Chloride 101 Carbon Dioxide 32 Anion Gap 5 L BUN 12.3 Creatinine 0.9 Est GFR (CKD-EPI)AfAm 95.82 Est GFR (CKD-EPI)NonAf 82.67 POC Glucometer 117 Random Glucose 112 H Uric Acid Calcium 8.6 Magnesium 2.2 Total Bilirubin 1.0 AST 20 ALT 20 Alkaline Phosphatase 92 Total Protein 5.8 L Albumin 2.6 L Active Medications Generic Name Dose Route Start Last Admin Trade Name Freq PRN Reason Stop Dose Admin Acetaminophen 650 mg 08/31/19 08:46 08/31/19 12:08 Tylenol - PO 650 mg Q6H PRN Administration PAIN LEVEL 1-5 Al Hydroxide/Mg Hydroxide 30 ml 08/29/19 13:28 08/30/19 22:31 Mylanta Oral Suspension - PO 30 ml Q6H PRN Administration DYSPEPSIA Albuterol Sulfate 1 amp 08/28/19 19:56 Ventolin 0.083% Nebulizer Soln - NEB RQID PRN SHORT OF BREATH/WHEEZING Amlodipine Besylate 5 mg 08/28/19 22:00 09/02/19 23:52 Norvasc - PO 5 mg HS [facility] Administration Atorvastatin Calcium 20 mg 08/28/19 22:00 09/02/19 23:52 Lipitor - PO 20 mg HS [facility] Administration Chlorpromazine HCl 25 mg 09/01/19 14:30 09/03/19 07:11 Thorazine - PO 09/03/19 14:29 Not Given TID [facility] Docusate Sodium 100 mg 08/28/19 19:56 09/01/19 09:57 Colace - PO 100 mg Q8H PRN Administration CONSTIPATION Finasteride 5 mg 08/28/19 20:00 09/02/19 11:28 Proscar - PO 5 mg DAILY [facility] Administration Hydrochlorothiazide 12.5 mg 08/29/19 10:00 09/02/19 11:29 Hctz - PO 12.5 mg DAILY [facility] Administration Meropenem 1 gm/ Dextrose 100 mls @ 200 mls/hr 08/30/19 13:00 09/03/19 01:40 IVPB 200 mls/hr Q8H-IV [facility] Administration Insulin Aspart 1 vial 08/28/19 22:00 09/03/19 07:11 Novolog Vial Sliding Scale - SQ Not Given ACHS [facility] Protocol Insulin Detemir 10 units 08/29/19 22:00 09/03/19 07:10 Levemir Vial SQ 10 units BID@0700,2200 [facility] Administration Magnesium Citrate 300 ml 08/31/19 11:26 08/31/19 12:08 Citroma - PO 300 ml PRN PRN Administration CONSTIPATION Oxycodone HCl 5 mg 08/31/19 11:24 09/01/19 09:57 Roxicodone - PO 5 mg Q6H PRN Administration PAIN LEVEL 6-10 Senna 2 tab 08/28/19 19:56 08/30/19 13:33 Senna - PO 2 tab HS PRN Administration CONSTIPATION Simethicone 80 mg 08/31/19 11:26 09/01/19 11:29 Mylicon - PO 80 mg QID PRN Administration DYSPEPSIA Tamsulosin HCl 0.4 mg 08/29/19 10:00 09/02/19 08:14 Flomax - PO 0.4 mg DAILY@0830 [facility] Administration Valsartan 320 mg 08/29/19 10:00 09/02/19 11:29 Diovan - PO 320 mg DAILY [facility] Administration ASSESSMENT/PLAN: Problem List - Problems (1) BPH loc w urin obs/LUTS Assessment/Plan: POD#5 from TURP with suprapubic cath meraz/suprapubic cath to gravity strict I/Os pain medication with oxycodone prn Code(s): N40.1 - BENIGN PROSTATIC HYPERPLASIA WITH LOWER URINARY TRACT SYMP (2) Urinary tract infection due to ESBL Klebsiella Assessment/Plan: on meropenm 12/26, will need picc line and snf vs home discharge. Code(s): N39.0 - URINARY TRACT INFECTION, SITE NOT SPECIFIED; B96.89 - OTH BACTERIAL AGENTS THE CAUSE OF DISEASES CLASSD ELSWHR (3) Constipation Assessment/Plan: bowel regimen Code(s): K59.00 - CONSTIPATION, UNSPECIFIED (4) Diabetes type 2, controlled Assessment/Plan: BGM AC/HS with novolog sliding scale, on novolog, levemir check a1c Code(s): E11.9 - TYPE 2 DIABETES MELLITUS WITHOUT COMPLICATIONS (5) HTN (hypertension) Assessment/Plan: controlled. continue norvasc, hctz, valsartan. Code(s): I10 - ESSENTIAL (PRIMARY) HYPERTENSION (6) Hematuria Assessment/Plan: no hematuria on meraz cath, scant amt on suprapubic cath (<10cc) Code(s): R31.9 - HEMATURIA, UNSPECIFIED (7) Hyperlipemia Assessment/Plan: continue home meds Code(s): E78.5 - HYPERLIPIDEMIA, UNSPECIFIED (8) Leukocytosis Assessment/Plan: resolved Code(s): D72.829 - ELEVATED WHITE BLOOD CELL COUNT, UNSPECIFIED (9) PAD (peripheral artery disease) Code(s): I73.9 - PERIPHERAL VASCULAR DISEASE, UNSPECIFIED (10) Prophylactic measure Assessment/Plan: fen tolerating po monitor electrolytes diabetic diet full code Code(s): Z29.9 - ENCOUNTER FOR PROPHYLACTIC MEASURES, UNSPECIFIED Visit type - Emergency Visit Emergency Visit: Yes ED Registration Date: 08/28/19 Care time: The patient presented to the Emergency Department on the above date and was hospitalized for further evaluation of their emergent condition. - New Patient This patient is new to me today: Yes Date on this admission: 09/03/19 - Critical Care Critical Care patient: No - Discharge Referral Referred to [facility] No
[2019-09-03 10:58] LABS: ANISOCYTOSIS 1+; MACROCYTOSIS 0; PLATELET ESTIMATE NORMAL; TARGET CELLS 1+; TEAR DROP CELLS 1+
[2019-09-03] MEDS: TAMSULOSIN HCL 0.4 MG CAP PO SCH (11:13)
[2019-09-03] MEDS: HYDROCHLOROTHIAZIDE 12.5 MG CAPSULE (FP) PO SCH (11:13)
[2019-09-03] MEDS: FINASTERIDE 5 MG TABLET (FP) PO SCH (11:14)
[2019-09-03] MEDS: VALSARTAN 160 MG TABLET (UD) PO SCH (11:14)
--- NOTE | 2019-09-03 11:53 | PN ---
Progress Note, Physician History of Present Illness: stable no new issues clear urine - Current Medication List Current Medications: Active Medications Acetaminophen (Tylenol -) 650 mg PO Q6H PRN PRN Reason: PAIN LEVEL 1-5 Last Admin: 08/31/19 12:08 Dose: 650 mg Al Hydroxide/Mg Hydroxide (Mylanta Oral Suspension -) 30 ml PO Q6H PRN PRN Reason: DYSPEPSIA Last Admin: 08/30/19 22:31 Dose: 30 ml Albuterol Sulfate (Ventolin 0.083% Nebulizer Soln -) 1 amp NEB RQID PRN PRN Reason: SHORT OF BREATH/WHEEZING Amlodipine Besylate (Norvasc -) 5 mg PO [facility] Last Admin: 09/02/19 23:52 Dose: 5 mg Atorvastatin Calcium (Lipitor -) 20 mg PO [facility] Last Admin: 09/02/19 23:52 Dose: 20 mg Chlorpromazine HCl (Thorazine -) 25 mg PO TID [facility] Stop: 09/03/19 14:29 Last Admin: 09/03/19 07:11 Dose: Not Given Docusate Sodium (Colace -) 100 mg PO Q8H PRN PRN Reason: CONSTIPATION Last Admin: 09/01/19 09:57 Dose: 100 mg Finasteride (Proscar -) 5 mg PO DAILY [facility] Last Admin: 09/03/19 11:14 Dose: 5 mg Hydrochlorothiazide (Hctz -) 12.5 mg PO DAILY [facility] Last Admin: 09/03/19 11:13 Dose: 12.5 mg Meropenem 1 gm/ Dextrose 100 mls @ 200 mls/hr IVPB Q8H-IV [facility] Last Admin: 09/03/19 11:13 Dose: 200 mls/hr Insulin Aspart (Novolog Vial Sliding Scale -) 1 vial SQ ACHS [facility]; Protocol Last Admin: 09/03/19 07:11 Dose: Not Given Insulin Detemir (Levemir Vial) 10 units SQ BID@0700,2200 [facility] Last Admin: 09/03/19 07:10 Dose: 10 units Magnesium Citrate (Citroma -) 300 ml PO PRN PRN PRN Reason: CONSTIPATION Last Admin: 08/31/19 12:08 Dose: 300 ml Oxycodone HCl (Roxicodone -) 5 mg PO Q6H PRN PRN Reason: PAIN LEVEL 6-10 Last Admin: 09/01/19 09:57 Dose: 5 mg Senna (Senna -) 2 tab PO HS PRN PRN Reason: CONSTIPATION Last Admin: 08/30/19 13:33 Dose: 2 tab Simethicone (Mylicon -) 80 mg PO QID PRN PRN Reason: DYSPEPSIA Last Admin: 09/01/19 11:29 Dose: 80 mg Tamsulosin HCl (Flomax -) 0.4 mg PO DAILY@0830 [facility] Last Admin: 09/03/19 11:13 Dose: 0.4 mg Valsartan (Diovan -) 320 mg PO DAILY [facility] Last Admin: 09/03/19 11:14 Dose: 320 mg - Objective Vital Signs: Vital Signs Temperature 97.9 F 09/03/19 06:00 Pulse Rate 78 09/03/19 06:00 Respiratory Rate 18 09/03/19 06:00 Blood Pressure 109/56 L 09/03/19 06:00 O2 Sat by Pulse Oximetry (%) 95 09/02/19 21:00 Constitutional: Yes: No Distress, Calm Cardiovascular: Yes: S1, S2 Respiratory: Yes: Regular, CTA Bilaterally Gastrointestinal: Yes: Normal Bowel Sounds, Soft Genitourinary: Yes: [place] Present Musculoskeletal: Yes: WNL Extremities: Yes: WNL Neurological: Yes: Alert, Oriented Psychiatric: Yes: Alert, Oriented Labs: CBC, BMP 09/03/19 06:47 09/03/19 06:47 Assessment/Plan Problem List - Problems (1) BPH loc w urin obs/LUTS Code(s): N40.1 - BENIGN PROSTATIC HYPERPLASIA WITH LOWER URINARY TRACT SYMP (2) Diabetes type 2, controlled Code(s): E11.9 - TYPE 2 DIABETES MELLITUS WITHOUT COMPLICATIONS (3) HTN (hypertension) Code(s): I10 - ESSENTIAL (PRIMARY) HYPERTENSION (4) Hematuria Code(s): R31.9 - HEMATURIA, UNSPECIFIED (5) Hyperlipemia Code(s): E78.5 - HYPERLIPIDEMIA, UNSPECIFIED (6) Leukocytosis Code(s): D72.829 - ELEVATED WHITE BLOOD CELL COUNT, UNSPECIFIED Assessment/Plan ESBL+ Klebsiella UTI BPH s/p TURP/SPC Hematuria - resolved Leukoccytosis - resolved -- continue Meropenem final plan will need to complete the course rest as per the team
[2019-09-03] MEDS ORDERED: INSULIN (NOVOLOG) ASPART 100 UNITS/ML 10ML VIAL ONE (12:35)
--- NOTE | 2019-09-03 17:05 | PN ---
Progress Note (short form) - Note Progress Note: Pt. seen S/P TUVP and SP Cystostomy. Pt. is awake and alert, Urine is clear. Pt. is scheduled for cysto and cystogram tomorrow. Will keep pt. npo after midnight and obtain consent for cystogram and cysto. Progress satisfactory.
[2019-09-03] MEDS: amLODIPine BESYLATE 5 MG TABLET (FP) PO SCH (23:00)
[2019-09-03] MEDS: ATORVASTATIN CA 20 MG TABLET (FP) PO SCH (23:00)
[2019-09-04] MEDS ORDERED: MEROPENEM 1 GM VIAL (RESTRICTED TO ID) IVPB ONE ×3 (01:30→21:00)
[2019-09-04] MEDS ORDERED: DEXTROSE 5%-WATER 100 ML IVPB ONE ×3 (01:30→21:00)
[2019-09-04] MEDS: MEROPENEM 1 GM in DEXTROSE 5%-WATER 100 ML IVPB SCH ×4 (01:49→21:14)
[2019-09-04] MEDS ORDERED: PT OWN MED DRAWER 7, Y5N ONE (08:09)
--- NOTE | 2019-09-04 09:42 | PN ---
Physical Exam: SUBJECTIVE: Patient seen and examined at the bedside. sitting in chair, no acute distress. comfortable. denies malaise, denies pain. OBJECTIVE: suprapubic cath with ,clear urine, scant amt meraz cath with fabrizio clear urine Patient is a 74 year old male with a significant past medical history of diabetes 2, hypertension, bph, hld who presents for an electic TURP. Post procedure, developed sofy hematuria and severe scrotal edema. A suprapubic cyststomy was done and suprapubic catheter placed for continuous bladder irrigation. Patient currently with suprapubic cathether and meraz catheter. He is on day 6 of meropenem for ESBL+ Klebsiella UTI. He is scheduled for a cystoscopy today. Vital Signs Period Temp Pulse Resp BP Sys/Holman Pulse Ox Last 24 Hr 98.0 F-98.6 F 74-85 15-20 110-126/52-62 GENERAL: The patient is awake, alert, and fully oriented, in no acute distress. HEAD: Normal with no signs of trauma. EYES: PERRL, extraocular movements intact, sclera anicteric, conjunctiva clear. No ptosis. ENT: Ears normal, nares patent, oropharynx clear without exudates, moist mucous membranes. NECK: Trachea midline, full range of motion, supple. LUNGS: Breath sounds equal, clear to auscultation bilaterally, no wheezes HEART: Regular rate and rhythm ABDOMEN: Soft, nontender, nondistended, normoactive bowel sounds EXTREMITIES: no edema. NEUROLOGICAL: Normal speech, gait not observed. PSYCH: Normal mood, normal affect. SKIN: Warm, dry, normal turgor, no rashes or lesions noted Laboratory Results - last 24 hr 09/03/19 09/03/19 09/03/19 06:47 12:29 17:38 Neutrophils % (Manual) 68.0 Band Neutrophils % 1.0 Lymphocytes % (Manual) 17.0 Monocytes % (Manual) 5 Eosinophils % (Manual) 0.0 D Basophils % (Manual) 0.0 Myelocytes % (Man) 0 Promyelocytes % (Man) 0 Blast Cells % (Manual) 0 Nucleated RBC % 1 H Metamyelocytes 0 Hypochromia 0 Platelet Estimate Normal Platelet Comment Present Polychromasia 2+ Poikilocytosis 1+ Anisocytosis 1+ Microcytosis 1+ Macrocytosis 0 Target Cells 1+ Tear Drop Cells 1+ Stomatocytes 1+ POC Glucometer 247 92 09/03/19 09/04/19 22:54 06:57 Neutrophils % (Manual) Band Neutrophils % Lymphocytes % (Manual) Monocytes % (Manual) Eosinophils % (Manual) Basophils % (Manual) Myelocytes % (Man) Promyelocytes % (Man) Blast Cells % (Manual) Nucleated RBC % Metamyelocytes Hypochromia Platelet Estimate Platelet Comment Polychromasia Poikilocytosis Anisocytosis Microcytosis Macrocytosis Target Cells Tear Drop Cells Stomatocytes POC Glucometer 170 82 Active Medications Generic Name Dose Route Start Last Admin Trade Name Freq PRN Reason Stop Dose Admin Acetaminophen 650 mg 08/31/19 08:46 08/31/19 12:08 Tylenol - PO 650 mg Q6H PRN Administration PAIN LEVEL 1-5 Al Hydroxide/Mg Hydroxide 30 ml 08/29/19 13:28 08/30/19 22:31 Mylanta Oral Suspension - PO 30 ml Q6H PRN Administration DYSPEPSIA Albuterol Sulfate 1 amp 08/28/19 19:56 Ventolin 0.083% Nebulizer Soln - NEB RQID PRN SHORT OF BREATH/WHEEZING Amlodipine Besylate 5 mg 08/28/19 22:00 09/03/19 23:00 Norvasc - PO 5 mg HS [facility] Administration Atorvastatin Calcium 20 mg 08/28/19 22:00 09/03/19 23:00 Lipitor - PO 20 mg HS [facility] Administration Docusate Sodium 100 mg 08/28/19 19:56 09/01/19 09:57 Colace - PO 100 mg Q8H PRN Administration CONSTIPATION Finasteride 5 mg 08/28/19 20:00 09/03/19 11:14 Proscar - PO 5 mg DAILY [facility] Administration Hydrochlorothiazide 12.5 mg 08/29/19 10:00 09/03/19 11:13 Hctz - PO 12.5 mg DAILY [facility] Administration Meropenem 1 gm/ Dextrose 100 mls @ 200 mls/hr 08/30/19 13:00 09/04/19 01:49 IVPB 200 mls/hr Q8H-IV [facility] Administration Insulin Aspart 1 vial 08/28/19 22:00 09/03/19 22:59 Novolog Vial Sliding Scale - SQ Not Given ACHS [facility] Protocol Insulin Detemir 10 units 08/29/19 22:00 09/03/19 22:58 Levemir Vial SQ 10 units BID@0700,2200 [facility] Administration Magnesium Citrate 300 ml 08/31/19 11:26 08/31/19 12:08 Citroma - PO 300 ml PRN PRN Administration CONSTIPATION Oxycodone HCl 5 mg 08/31/19 11:24 09/01/19 09:57 Roxicodone - PO 5 mg Q6H PRN Administration PAIN LEVEL 6-10 Senna 2 tab 08/28/19 19:56 08/30/19 13:33 Senna - PO 2 tab HS PRN Administration CONSTIPATION Simethicone 80 mg 08/31/19 11:26 09/01/19 11:29 Mylicon - PO 80 mg QID PRN Administration DYSPEPSIA Tamsulosin HCl 0.4 mg 08/29/19 10:00 09/03/19 11:13 Flomax - PO 0.4 mg DAILY@0830 [facility] Administration Valsartan 320 mg 08/29/19 10:00 09/03/19 11:14 Diovan - PO 320 mg DAILY [facility] Administration ASSESSMENT/PLAN: Problem List - Problems (1) BPH loc w urin obs/LUTS Assessment/Plan: POD#6 from TURP with suprapubic cath meraz/suprapubic cath to gravity strict I/Os pain medication with oxycodone prn for cystoscopy today Code(s): N40.1 - BENIGN PROSTATIC HYPERPLASIA WITH LOWER URINARY TRACT SYMP (2) Urinary tract infection due to ESBL Klebsiella Assessment/Plan: on meropenm 01/26, will need picc line and snf vs home discharge. Code(s): N39.0 - URINARY TRACT INFECTION, SITE NOT SPECIFIED; B96.89 - OTH BACTERIAL AGENTS THE CAUSE OF DISEASES CLASSD ELSWHR (3) Constipation Assessment/Plan: bowel regimen Code(s): K59.00 - CONSTIPATION, UNSPECIFIED (4) Diabetes type 2, controlled Assessment/Plan: BGM AC/HS with novolog sliding scale, on novolog, levemir check a1c Code(s): E11.9 - TYPE 2 DIABETES MELLITUS WITHOUT COMPLICATIONS (5) HTN (hypertension) Assessment/Plan: controlled. continue norvasc, hctz, valsartan. Code(s): I10 - ESSENTIAL (PRIMARY) HYPERTENSION (6) Hematuria Assessment/Plan: no hematuria on meraz cath or suprapubic cath noted. Code(s): R31.9 - HEMATURIA, UNSPECIFIED (7) Hyperlipemia Assessment/Plan: continue home meds Code(s): E78.5 - HYPERLIPIDEMIA, UNSPECIFIED (8) Leukocytosis Assessment/Plan: resolved Code(s): D72.829 - ELEVATED WHITE BLOOD CELL COUNT, UNSPECIFIED (9) PAD (peripheral artery disease) Code(s): I73.9 - PERIPHERAL VASCULAR DISEASE, UNSPECIFIED (10) Prophylactic measure Assessment/Plan: fen tolerating po monitor electrolytes diabetic diet full code Code(s): Z29.9 - ENCOUNTER FOR PROPHYLACTIC MEASURES, UNSPECIFIED Visit type - Emergency Visit Emergency Visit: Yes ED Registration Date: 08/28/19 Care time: The patient presented to the Emergency Department on the above date and was hospitalized for further evaluation of their emergent condition. - New Patient This patient is new to me today: No - Critical Care Critical Care patient: No - Discharge Referral Referred to [facility] No
[2019-09-04] MEDS: HYDROCHLOROTHIAZIDE 12.5 MG CAPSULE (FP) PO SCH (09:49)
[2019-09-04] MEDS: TAMSULOSIN HCL 0.4 MG CAP PO SCH (09:49)
[2019-09-04] MEDS: VALSARTAN 160 MG TABLET (UD) PO SCH (09:49)
[2019-09-04] MEDS: FINASTERIDE 5 MG TABLET (FP) PO SCH (09:49)
[2019-09-04 09:50] LABS: BASO % 0.2 % (0-2.0); EOS % 1.8 % (0-4.5); HEMATOCRIT 26.6 % (35.4-49); HEMOGLOBIN 8.9 GM/dL (11.7-16.9); LYMPH % 13.2 % (8-40); MCH 34.7 pg (25.7-33.7); MCHC 33.5 g/dl (32.0-35.9); MEAN CELL VOLUME 103.7 fl (80-96); MONO % 15.8 % (3.8-10.2); PLATELET COUNT 310 K/MM3 (134-434); RBC 2.57 M/mm3 (4.00-5.60); RDW 13.3 % (11.9-15.9); WHITE BLOOD COUNT 8.9 K/mm3 (4.0-10.0)
[2019-09-04 10:18] LABS: ALBUMIN 2.9 g/dl (3.4-5.0); BILIRUBIN,TOTAL 1.2 mg/dL (0.2-1); BLOOD UREA NITROGEN 13.4 mg/dL (7-18); CALCIUM 9.1 mg/dL (8.5-10.1); CREATININE 0.9 mg/dL (0.55-1.3); MAGNESIUM 2.2 mg/dL (1.8-2.4); TOT PROT 6.5 g/dl (6.4-8.2)
--- NOTE | 2019-09-04 10:35 | PN ---
Progress Note, Physician History of Present Illness: stable no new issues urine clear patient for cystogram - Current Medication List Current Medications: Active Medications Acetaminophen (Tylenol -) 650 mg PO Q6H PRN PRN Reason: PAIN LEVEL 1-5 Last Admin: 08/31/19 12:08 Dose: 650 mg Al Hydroxide/Mg Hydroxide (Mylanta Oral Suspension -) 30 ml PO Q6H PRN PRN Reason: DYSPEPSIA Last Admin: 08/30/19 22:31 Dose: 30 ml Albuterol Sulfate (Ventolin 0.083% Nebulizer Soln -) 1 amp NEB RQID PRN PRN Reason: SHORT OF BREATH/WHEEZING Amlodipine Besylate (Norvasc -) 5 mg PO [facility] Last Admin: 09/03/19 23:00 Dose: 5 mg Atorvastatin Calcium (Lipitor -) 20 mg PO [facility] Last Admin: 09/03/19 23:00 Dose: 20 mg Docusate Sodium (Colace -) 100 mg PO Q8H PRN PRN Reason: CONSTIPATION Last Admin: 09/01/19 09:57 Dose: 100 mg Finasteride (Proscar -) 5 mg PO DAILY [facility] Last Admin: 09/04/19 09:49 Dose: 5 mg Hydrochlorothiazide (Hctz -) 12.5 mg PO DAILY [facility] Last Admin: 09/04/19 09:49 Dose: 12.5 mg Meropenem 1 gm/ Dextrose 100 mls @ 200 mls/hr IVPB Q8H-IV [facility] Last Admin: 09/04/19 09:49 Dose: 200 mls/hr Insulin Aspart (Novolog Vial Sliding Scale -) 1 vial SQ [facility]; Protocol Last Admin: 09/03/19 22:59 Dose: Not Given Insulin Detemir (Levemir Vial) 10 units SQ BID@0700,2200 [facility] Last Admin: 09/03/19 22:58 Dose: 10 units Magnesium Citrate (Citroma -) 300 ml PO PRN PRN PRN Reason: CONSTIPATION Last Admin: 08/31/19 12:08 Dose: 300 ml Oxycodone HCl (Roxicodone -) 5 mg PO Q6H PRN PRN Reason: PAIN LEVEL 6-10 Last Admin: 09/01/19 09:57 Dose: 5 mg Senna (Senna -) 2 tab PO HS PRN PRN Reason: CONSTIPATION Last Admin: 08/30/19 13:33 Dose: 2 tab Simethicone (Mylicon -) 80 mg PO QID PRN PRN Reason: DYSPEPSIA Last Admin: 09/01/19 11:29 Dose: 80 mg Tamsulosin HCl (Flomax -) 0.4 mg PO DAILY@0830 [facility] Last Admin: 09/04/19 09:49 Dose: 0.4 mg Valsartan (Diovan -) 320 mg PO DAILY [facility] Last Admin: 09/04/19 09:49 Dose: 320 mg - Objective Vital Signs: Vital Signs Temperature 98.1 F 09/04/19 07:36 Pulse Rate 79 09/04/19 07:36 Respiratory Rate 20 09/04/19 07:36 Blood Pressure 118/58 L 09/04/19 07:36 O2 Sat by Pulse Oximetry (%) 98 09/03/19 09:00 Constitutional: Yes: No Distress, Calm Cardiovascular: Yes: S1, S2 Respiratory: Yes: Regular, CTA Bilaterally Gastrointestinal: Yes: Normal Bowel Sounds, Soft Genitourinary: Yes: [place] Present Musculoskeletal: Yes: WNL Extremities: Yes: WNL Labs: CBC, BMP 09/04/19 08:00 09/04/19 08:00 Assessment/Plan Problem List - Problems (1) BPH loc w urin obs/LUTS Code(s): N40.1 - BENIGN PROSTATIC HYPERPLASIA WITH LOWER URINARY TRACT SYMP (2) Diabetes type 2, controlled Code(s): E11.9 - TYPE 2 DIABETES MELLITUS WITHOUT COMPLICATIONS (3) HTN (hypertension) Code(s): I10 - ESSENTIAL (PRIMARY) HYPERTENSION (4) Hematuria Code(s): R31.9 - HEMATURIA, UNSPECIFIED (5) Hyperlipemia Code(s): E78.5 - HYPERLIPIDEMIA, UNSPECIFIED (6) Leukocytosis Code(s): D72.829 - ELEVATED WHITE BLOOD CELL COUNT, UNSPECIFIED Assessment/Plan ESBL+ Klebsiella UTI BPH s/p TURP/SPC Hematuria - resolved Leukoccytosis - resolved -- continue Meropenem final plan will need to complete the course rest as per the team
[2019-09-04 10:58] LABS: ANISOCYTOSIS 1+; MACROCYTOSIS 0
[2019-09-04] MEDS: INSULIN SLIDING SCALE (NOVOLOG) 1 VIAL SQ SCH ×4 (11:56→21:13)
--- NOTE | 2019-09-04 13:28 | CONS ---
DATE OF CONSULTATION: DATE OF DICTATION: 09/04/2019 Patient is a 74-year-old male who is status post a TURP and a suprapubic cystotomy. He developed a Klebsiella ESBL. Has been treated by Infectious Disease with meropenem. We will discontinue suprapubic tube after a cystogram is obtained today. Patient will be urologically cleared for discharge. We will discuss with ID as to outpatient antibiotics. BRIAN HUDDLESTON M.D. [id number]
[2019-09-04 15:00] VITALS: BMI 25.8
[2019-09-04] MEDS ORDERED: ONDANSETRON 4 MG/2 ML VIAL IVPUSH PRN (15:34)
[2019-09-04] MEDS: LACTATED RINGERS SOLUTION 1,000 ML IV SCH (15:46)
[2019-09-04] MEDS ORDERED: ceFAZolin SODIUM 1 GM VIAL IVPB ONE ×2 (17:35)
--- NOTE | 2019-09-04 18:22 | OP ---
Operative Note - Note: Operative Date: 09/04/19 Pre-Operative Diagnosis: s/p turp and suprapubic cystostomy Operation: cystogram and cystoscopy and d/c of suprapubic meraz Findings: wide open bladder neck Post-Operative Diagnosis: Same as Pre-op Surgeon: Kelechi Mcdonnell Anesthesia: General Specimens Removed: suprapubic meraz Estimated Blood Loss (mls): 10 Drains & Tubes with Location: 20f 20cc urethral meraz Drains, Volume Out (mls): 10 Blood Volume Replaced (mls): 0 Fluid Volume Replaced (mls): 0 Operative Report Dictated: Yes
[2019-09-04] MEDS: INSULIN (LEVEMIR) 100 UNITS/ML UNITS SQ SCH ×2 (20:47→21:12)
[2019-09-04] MEDS: ACETAMINOPHEN 325 MG TABLET (FP) PO PRN (21:11)
[2019-09-04] MEDS: ATORVASTATIN CA 20 MG TABLET (FP) PO SCH (21:12)
[2019-09-04] MEDS: amLODIPine BESYLATE 5 MG TABLET (FP) PO SCH (21:12)
--- NOTE | 2019-09-04 22:38 | OP ---
DATE OF OPERATION: DATE OF DICTATION: 09/04/2019 INDICATION: The patient is a 74-year-old status post TURP and suprapubic [place] insertion for continuous bladder irrigation. OPERATIVE PROCEDURE: Cystogram and cystoscopy. ANESTHESIA: General. DESCRIPTION OF PROCEDURE: Under above stated anesthesia, patient is prepped and draped in the usual sterile manner. He is placed in the supine position. The urethral [place] was clamped and 300 mL of contrast was injected via the suprapubic [place]. The entire bladder was seen. No extravasation was noted. Therefore, the suprapubic catheter was inflated and removed. A cystoscopy revealed a wide open bladder neck with no lesions or calculi in the bladder. A 20 [place] was left in the bladder. The suprapubic kvng were also removed. The patient tolerated the procedure well. He returned to the recovery room in good condition. Salomón [id number]
[2019-09-05] MEDS ORDERED: DEXTROSE 5%-WATER 100 ML IVPB ONE ×3 (04:25→17:28)
[2019-09-05] MEDS ORDERED: MEROPENEM 1 GM VIAL (RESTRICTED TO ID) IVPB ONE ×3 (04:25→17:27)
[2019-09-05] MEDS: MEROPENEM 1 GM in DEXTROSE 5%-WATER 100 ML IVPB SCH ×3 (04:29→17:36)
[2019-09-05] MEDS: INSULIN SLIDING SCALE (NOVOLOG) 1 VIAL SQ SCH ×4 (06:30→22:15)
[2019-09-05] MEDS: INSULIN (LEVEMIR) 100 UNITS/ML UNITS SQ SCH ×2 (06:31→22:16)
--- NOTE | 2019-09-05 07:59 | PN ---
Progress Note (short form) - Note Progress Note: Anesthesia Post op Pt seen and examined S:Alert and awake comfortable O: Vital Signs Temperature 98.6 F 09/05/19 07:16 Pulse Rate 80 09/05/19 07:16 Respiratory Rate 09/05/19 07:16 Blood Pressure 113/64 09/05/19 07:16 O2 Sat by Pulse Oximetry (%) 95 09/04/19 20:30 CBC, BMP 09/04/19 08:00 09/04/19 08:00 A/P: Current Active Problems BPH loc w urin obs/LUTS (Acute) Constipation (Acute) Diabetes type 2, controlled (Acute) HTN (hypertension) (Acute) Hematuria (Acute) Hyperlipemia (Acute) Leukocytosis (Acute) PAD (peripheral artery disease) (Acute) Prophylactic measure (Acute) Urinary tract infection due to ESBL Klebsiella (Acute) s/p removal of supra pubic catheter Doing well post op Continue current care Scot Baeza MD
[2019-09-05 08:20] LABS: BASO % 0.4 % (0-2.0); EOS % 1.5 % (0-4.5); HEMATOCRIT 23.5 % (35.4-49); HEMOGLOBIN 7.9 GM/dL (11.7-16.9); MCH 34.2 pg (25.7-33.7); MCHC 33.5 g/dl (32.0-35.9); MEAN CELL VOLUME 102.1 fl (80-96); MEAN PLT VOLUME 8.4 fl (7.5-11.1); MONO % 14.4 % (3.8-10.2); NEUT % 71.7 % (42.8-82.8); PLATELET COUNT 287 K/MM3 (134-434); RDW 13.5 % (11.9-15.9); WHITE BLOOD COUNT 9.8 K/mm3 (4.0-10.0)
[2019-09-05 09:00] LABS: ALBUMIN 2.5 g/dl (3.4-5.0); BLOOD UREA NITROGEN 13.4 mg/dL (7-18); CALCIUM 8.5 mg/dL (8.5-10.1); POTASSIUM 4.3 mmol/L (3.5-5.1); TOT PROT 5.8 g/dl (6.4-8.2)
--- NOTE | 2019-09-05 09:20 | PN ---
Progress Note, Physician History of Present Illness: post op patient doing well - Current Medication List Current Medications: Active Medications Acetaminophen (Tylenol -) 650 mg PO Q6H PRN PRN Reason: PAIN LEVEL 1-5 Last Admin: 09/04/19 21:11 Dose: 650 mg Al Hydroxide/Mg Hydroxide (Mylanta Oral Suspension -) 30 ml PO Q6H PRN PRN Reason: DYSPEPSIA Last Admin: 08/30/19 22:31 Dose: 30 ml Albuterol Sulfate (Ventolin 0.083% Nebulizer Soln -) 1 amp NEB RQID PRN PRN Reason: SHORT OF BREATH/WHEEZING Amlodipine Besylate (Norvasc -) 5 mg PO HS [facility] Last Admin: 09/04/19 21:12 Dose: 5 mg Atorvastatin Calcium (Lipitor -) 20 mg PO HS [facility] Last Admin: 09/04/19 21:12 Dose: 20 mg Docusate Sodium (Colace -) 100 mg PO Q8H PRN PRN Reason: CONSTIPATION Last Admin: 09/01/19 09:57 Dose: 100 mg Fentanyl (Sublimaze Injection -) 25 mcg IVPUSH [id number] PRN PRN Reason: PAIN-PACU ORDER X 4 DOSES ONLY Finasteride (Proscar -) 5 mg PO DAILY [facility] Last Admin: 09/04/19 09:49 Dose: 5 mg Hydrochlorothiazide (Hctz -) 12.5 mg PO DAILY [facility] Last Admin: 09/04/19 09:49 Dose: 12.5 mg Meropenem 1 gm/ Dextrose 100 mls @ 200 mls/hr IVPB Q8H-IV [facility] Last Admin: 09/05/19 04:29 Dose: 200 mls/hr Lactated Ringer's (Lactated Ringers Solution) 1,000 mls @ 75 mls/hr IV ASDIR [facility] Last Admin: 09/04/19 15:46 Dose: 75 mls/hr Insulin Aspart (Novolog Vial Sliding Scale -) 1 vial SQ [facility]; Protocol Last Admin: 09/05/19 06:30 Dose: Not Given Insulin Detemir (Levemir Vial) 10 units SQ BID@0700,2200 [facility] Last Admin: 09/05/19 06:31 Dose: 10 units Magnesium Citrate (Citroma -) 300 ml PO PRN PRN PRN Reason: CONSTIPATION Last Admin: 08/31/19 12:08 Dose: 300 ml Ondansetron HCl (Zofran Injection) 4 mg IVPUSH Q6H PRN PRN Reason: NAUSEA AND/OR VOMITING Oxycodone HCl (Roxicodone -) 5 mg PO Q6H PRN PRN Reason: PAIN LEVEL 6-10 Last Admin: 09/01/19 09:57 Dose: 5 mg Senna (Senna -) 2 tab PO HS PRN PRN Reason: CONSTIPATION Last Admin: 08/30/19 13:33 Dose: 2 tab Simethicone (Mylicon -) 80 mg PO QID PRN PRN Reason: DYSPEPSIA Last Admin: 09/01/19 11:29 Dose: 80 mg Tamsulosin HCl (Flomax -) 0.4 mg PO DAILY@0830 [facility] Last Admin: 09/04/19 09:49 Dose: 0.4 mg Valsartan (Diovan -) 320 mg PO DAILY [facility] Last Admin: 09/04/19 09:49 Dose: 320 mg - Objective Vital Signs: Vital Signs Temperature 98.6 F 09/05/19 07:16 Pulse Rate 80 09/05/19 07:16 Respiratory Rate 09/05/19 07:16 Blood Pressure 113/64 09/05/19 07:16 O2 Sat by Pulse Oximetry (%) 95 09/04/19 20:30 Constitutional: Yes: No Distress, Calm Cardiovascular: Yes: S1, S2 Respiratory: Yes: Regular, CTA Bilaterally Gastrointestinal: Yes: Normal Bowel Sounds, Soft Musculoskeletal: Yes: WNL Extremities: Yes: WNL Neurological: Yes: Alert, Oriented Labs: CBC, BMP 09/05/19 07:35 09/05/19 07:35 Assessment/Plan Problem List - Problems (1) BPH loc w urin obs/LUTS Code(s): N40.1 - BENIGN PROSTATIC HYPERPLASIA WITH LOWER URINARY TRACT SYMP (2) Diabetes type 2, controlled Code(s): E11.9 - TYPE 2 DIABETES MELLITUS WITHOUT COMPLICATIONS (3) HTN (hypertension) Code(s): I10 - ESSENTIAL (PRIMARY) HYPERTENSION (4) Hematuria Code(s): R31.9 - HEMATURIA, UNSPECIFIED (5) Hyperlipemia Code(s): E78.5 - HYPERLIPIDEMIA, UNSPECIFIED (6) Leukocytosis Code(s): D72.829 - ELEVATED WHITE BLOOD CELL COUNT, UNSPECIFIED Assessment/Plan ESBL+ Klebsiella UTI BPH s/p TURP/SPC Hematuria - resolved Leukoccytosis - resolved -- continue Meropenem final plan will need to complete the course rest as per the team
--- NOTE | 2019-09-05 10:18 | PN ---
Physical Exam: SUBJECTIVE: Patient seen and examined at the bedside. reports mild pain at the area of meraz insertion, otherwise comfortable. denies shortness of breath or malaise. OBJECTIVE: suprapubic cath removed by urology. patient is s/p cystoscopy/cystogram on 09/04 meraz cath with gross hematuria (apx 400cc) hmg 7.9, repeat hmg in afternoon Patient is a 74 year old male with a significant past medical history of diabetes 2, hypertension, bph, hld who presents for an electic TURP. Post procedure, developed sofy hematuria and severe scrotal edema. A suprapubic cyststomy was done and suprapubic catheter placed for continuous bladder irrigation. Patient currently with suprapubic cathether and meraz catheter. He is on day 6 of meropenem for ESBL+ Klebsiella UTI. He is s/p cystoscopy on , suprapubic catheter removed. Meraz with gross hematuria. Vital Signs Period Temp Pulse Resp BP Sys/Holman Pulse Ox Last 24 Hr 97.8 F-98.6 F 72-100 13-21 113-150/54-72 95-98 GENERAL: The patient is awake, alert, and fully oriented, in no acute distress. HEAD: Normal with no signs of trauma. EYES: PERRL, extraocular movements intact, sclera anicteric, conjunctiva clear. No ptosis. ENT: Ears normal, nares patent, oropharynx clear without exudates, moist mucous membranes. NECK: Trachea midline, full range of motion, supple. LUNGS: Breath sounds equal, clear to auscultation bilaterally, no wheezes HEART: Regular rate and rhythm ABDOMEN: Soft, nontender, nondistended, normoactive bowel sounds - suprapubic cath removed, dressing c/d/i (abd pad) EXTREMITIES: no edema. NEUROLOGICAL: Normal speech, gait not observed. PSYCH: Normal mood, normal affect. SKIN: Warm, dry, normal turgor, no rashes or lesions noted Laboratory Results - last 24 hr 09/04/19 09/04/19 09/04/19 08:00 08:00 11:55 WBC RBC Hgb Hct MCV MCH MCHC RDW Plt Count MPV Absolute Neuts (auto) Neutrophils % Neutrophils % (Manual) 72.3 Band Neutrophils % 0.0 Lymphocytes % Lymphocytes % (Manual) 15.8 Monocytes % Monocytes % (Manual) 9 Eosinophils % Eosinophils % (Manual) 2.0 D Basophils % Basophils % (Manual) 0.0 Myelocytes % (Man) 1 D Promyelocytes % (Man) 0 Blast Cells % (Manual) 0 Nucleated RBC % Metamyelocytes 0 Hypochromia 0 Polychromasia 1+ Poikilocytosis 0 Anisocytosis 1+ Microcytosis 0 Macrocytosis 0 Sodium 135 L Potassium 4.0 Chloride 99 Carbon Dioxide 33 H Anion Gap 4 L BUN 13.4 Creatinine 0.9 Est GFR (CKD-EPI)AfAm 95.82 Est GFR (CKD-EPI)NonAf 82.67 POC Glucometer 130 Random Glucose 128 H Calcium 9.1 Magnesium 2.2 Iron TIBC Iron Saturation Unsaturated IBC Ferritin Total Bilirubin 1.2 H AST 22 ALT 29 Alkaline Phosphatase 109 Total Protein 6.5 Albumin 2.9 L 09/04/19 09/04/19 09/05/19 19:56 21:10 06:28 WBC RBC Hgb Hct MCV MCH MCHC RDW Plt Count MPV Absolute Neuts (auto) Neutrophils % Neutrophils % (Manual) Band Neutrophils % Lymphocytes % Lymphocytes % (Manual) Monocytes % Monocytes % (Manual) Eosinophils % Eosinophils % (Manual) Basophils % Basophils % (Manual) Myelocytes % (Man) Promyelocytes % (Man) Blast Cells % (Manual) Nucleated RBC % Metamyelocytes Hypochromia Polychromasia Poikilocytosis Anisocytosis Microcytosis Macrocytosis Sodium Potassium Chloride Carbon Dioxide Anion Gap BUN Creatinine Est GFR (CKD-EPI)AfAm Est GFR (CKD-EPI)NonAf POC Glucometer 142 233 123 Random Glucose Calcium Magnesium Iron TIBC Iron Saturation Unsaturated IBC Ferritin Total Bilirubin AST ALT Alkaline Phosphatase Total Protein Albumin 09/05/19 09/05/19 07:35 07:35 WBC 9.8 RBC 2.30 L Hgb 7.9 L Hct 23.5 L MCV 102.1 H MCH 34.2 H MCHC 33.5 RDW 13.5 Plt Count 287 MPV 8.4 Absolute Neuts (auto) 7.1 Neutrophils % 71.7 Neutrophils % (Manual) Band Neutrophils % Lymphocytes % 12.0 Lymphocytes % (Manual) Monocytes % 14.4 H Monocytes % (Manual) Eosinophils % 1.5 Eosinophils % (Manual) Basophils % 0.4 Basophils % (Manual) Myelocytes % (Man) Promyelocytes % (Man) Blast Cells % (Manual) Nucleated RBC % 0 Metamyelocytes Hypochromia Polychromasia Poikilocytosis Anisocytosis Microcytosis Macrocytosis Sodium 136 Potassium 4.3 Chloride 100 Carbon Dioxide 31 Anion Gap 5 L BUN 13.4 Creatinine 1.0 Est GFR (CKD-EPI)AfAm 84.36 Est GFR (CKD-EPI)NonAf 72.78 POC Glucometer Random Glucose 115 H Calcium 8.5 Magnesium 2.0 Iron 19 L TIBC 186 L Iron Saturation 10 L Unsaturated IBC 167 L Ferritin 423.4 H Total Bilirubin 1.0 AST 17 ALT 24 Alkaline Phosphatase 102 Total Protein 5.8 L Albumin 2.5 L Active Medications Generic Name Dose Route Start Last Admin Trade Name Freq PRN Reason Stop Dose Admin Acetaminophen 650 mg 08/31/19 08:46 09/04/19 21:11 Tylenol - PO 650 mg Q6H PRN Administration PAIN LEVEL 1-5 Al Hydroxide/Mg Hydroxide 30 ml 08/29/19 13:28 08/30/19 22:31 Mylanta Oral Suspension - PO 30 ml Q6H PRN Administration DYSPEPSIA Albuterol Sulfate 1 amp 08/28/19 19:56 Ventolin 0.083% Nebulizer Soln - NEB RQID PRN SHORT OF BREATH/WHEEZING Amlodipine Besylate 5 mg 08/28/19 22:00 09/04/19 21:12 Norvasc - PO 5 mg HS [facility] Administration Atorvastatin Calcium 20 mg 08/28/19 22:00 09/04/19 21:12 Lipitor - PO 20 mg HS [facility] Administration Docusate Sodium 100 mg 08/28/19 19:56 09/01/19 09:57 Colace - PO 100 mg Q8H PRN Administration CONSTIPATION Fentanyl 25 mcg 09/04/19 15:34 Sublimaze Injection - IVPUSH [id number] PRN PAIN-PACU ORDER X 4 DOSES ONLY Finasteride 5 mg 08/28/19 20:00 09/04/19 09:49 Proscar - PO 5 mg DAILY [facility] Administration Hydrochlorothiazide 12.5 mg 08/29/19 10:00 09/04/19 09:49 Hctz - PO 12.5 mg DAILY [facility] Administration Meropenem 1 gm/ Dextrose 100 mls @ 200 mls/hr 08/30/19 13:00 09/05/19 04:29 IVPB 200 mls/hr Q8H-IV [facility] Administration Lactated Ringer's 1,000 mls @ 75 mls/hr 09/04/19 15:45 09/04/19 15:46 Lactated Ringers Solution IV 75 mls/hr ASDIR [facility] Administration Insulin Aspart 1 vial 08/28/19 22:00 09/05/19 06:30 Novolog Vial Sliding Scale - SQ Not Given ACHS [facility] Protocol Insulin Detemir 10 units 08/29/19 22:00 09/05/19 06:31 Levemir Vial SQ 10 units BID@0700,2200 [facility] Administration Magnesium Citrate 300 ml 08/31/19 11:26 08/31/19 12:08 Citroma - PO 300 ml PRN PRN Administration CONSTIPATION Ondansetron HCl 4 mg 09/04/19 15:34 Zofran Injection IVPUSH Q6H PRN NAUSEA AND/OR VOMITING Oxycodone HCl 5 mg 08/31/19 11:24 09/01/19 09:57 Roxicodone - PO 5 mg Q6H PRN Administration PAIN LEVEL 6-10 Senna 2 tab 08/28/19 19:56 08/30/19 13:33 Senna - PO 2 tab HS PRN Administration CONSTIPATION Simethicone 80 mg 08/31/19 11:26 09/01/19 11:29 Mylicon - PO 80 mg QID PRN Administration DYSPEPSIA Tamsulosin HCl 0.4 mg 08/29/19 10:00 09/04/19 09:49 Flomax - PO 0.4 mg DAILY@0830 [facility] Administration Valsartan 320 mg 08/29/19 10:00 09/04/19 09:49 Diovan - PO 320 mg DAILY [facility] Administration ASSESSMENT/PLAN: Problem List - Problems (1) BPH loc w urin obs/LUTS Assessment/Plan: s/p TURP with suprapubic cath placement, had cystoscopy on 09/04/2019 and suprapubic cath removed. meraz in place and draining gross hematuria, no clots seen. pain medication with oxycodone prn Code(s): N40.1 - BENIGN PROSTATIC HYPERPLASIA WITH LOWER URINARY TRACT SYMP (2) Urinary tract infection due to ESBL Klebsiella Assessment/Plan: on meropenm per ID. will complete course on 09/12/2019, will need picc line and snf vs home discharge. Code(s): N39.0 - URINARY TRACT INFECTION, SITE NOT SPECIFIED; B96.89 - OTH BACTERIAL AGENTS THE CAUSE OF DISEASES CLASSD ELSWHR (3) Constipation Assessment/Plan: bowel regimen Code(s): K59.00 - CONSTIPATION, UNSPECIFIED (4) Diabetes type 2, controlled Assessment/Plan: controlled. monitor bgms. Code(s): E11.9 - TYPE 2 DIABETES MELLITUS WITHOUT COMPLICATIONS (5) HTN (hypertension) Assessment/Plan: controlled. continue norvasc, hctz, valsartan. Code(s): I10 - ESSENTIAL (PRIMARY) HYPERTENSION (6) Hematuria Assessment/Plan: apx 400 cc of gross hematuria in meraz bag s/p cystoscopy. Code(s): R31.9 - HEMATURIA, UNSPECIFIED (7) Hyperlipemia Assessment/Plan: low cholesterol diet Code(s): E78.5 - HYPERLIPIDEMIA, UNSPECIFIED (8) Leukocytosis Code(s): D72.829 - ELEVATED WHITE BLOOD CELL COUNT, UNSPECIFIED (9) PAD (peripheral artery disease) Code(s): I73.9 - PERIPHERAL VASCULAR DISEASE, UNSPECIFIED (10) Acute blood loss anemia Assessment/Plan: hmg/hct downtrending, repeat levels this afternoon and monitor Code(s): D62 - ACUTE POSTHEMORRHAGIC ANEMIA (11) Acute blood loss as cause of postoperative anemia Code(s): D62 - ACUTE POSTHEMORRHAGIC ANEMIA (12) Prophylactic measure Assessment/Plan: fen tolerating po monitor electrolytes diabetic diet no chemical a/c 2/2 to acute blood loss full code Code(s): Z29.9 - ENCOUNTER FOR PROPHYLACTIC MEASURES, UNSPECIFIED Visit type - Emergency Visit Emergency Visit: Yes ED Registration Date: 08/28/19 Care time: The patient presented to the Emergency Department on the above date and was hospitalized for further evaluation of their emergent condition. - New Patient This patient is new to me today: No - Critical Care Critical Care patient: No - Discharge Referral Referred to [facility] No
[2019-09-05] MEDS: HYDROCHLOROTHIAZIDE 12.5 MG CAPSULE (FP) PO SCH (11:08)
[2019-09-05] MEDS: TAMSULOSIN HCL 0.4 MG CAP PO SCH (11:08)
[2019-09-05] MEDS: VALSARTAN 160 MG TABLET (UD) PO SCH (11:09)
[2019-09-05] MEDS: FINASTERIDE 5 MG TABLET (FP) PO SCH (11:10)
[2019-09-05] MEDS ORDERED: PT OWN MED DRAWER 7, Y5N ONE (13:40)
--- NOTE | 2019-09-05 14:54 | PN ---
DATE OF VISIT: DATE OF DICTATION: 09/05/2019 HOSPITAL COURSE: Patient is a 74-year-old male, status post cystoscopy, cystogram yesterday. Had his suprapubic tube removed and kvng from the abdominal incision removed. His vital signs are stable; temperature 98.6, blood pressure 113/64, respirations are 20. His CBC reveals a white count of 9.8, with a hemoglobin and hematocrit of 8 over 24. Patient's BUN and creatinine were 13 over 1, respectively. His urine culture came back last week as ESBL-positive Klebsiella pneumoniae. Therefore, the patient is receiving IV imipenem. Today, his wound is dry. His [place] is patent. The urine is clear. Extremities reveal no edema, cyanosis or tenderness. Patient is having good bowel movements. Urine output is averaging 80 mL . IMPRESSION: The patient is urologically stable for discharge. Will go along with IV and continue his IV medications for an extra 48 hours. Will follow. [place] [id number]
[2019-09-05] MEDS: LACTATED RINGERS SOLUTION 1,000 ML IV SCH (17:36)
[2019-09-05 18:47] LABS: BASO % 0.3 % (0-2.0); EOS % 1.2 % (0-4.5); HEMATOCRIT 23.6 % (35.4-49); HEMOGLOBIN 7.7 GM/dL (11.7-16.9); LYMPH % 11.7 % (8-40); MCH 33.8 pg (25.7-33.7); MCHC 32.5 g/dl (32.0-35.9); MEAN CELL VOLUME 103.9 fl (80-96); MEAN PLT VOLUME 8.9 fl (7.5-11.1); MONO % 12.9 % (3.8-10.2); NEUT % 73.9 % (42.8-82.8); PLATELET COUNT 327 K/MM3 (134-434); RBC 2.27 M/mm3 (4.00-5.60); RDW 13.3 % (11.9-15.9); WHITE BLOOD COUNT 11.8 K/mm3 (4.0-10.0)
[2019-09-05] MEDS: ATORVASTATIN CA 20 MG TABLET (FP) PO SCH (22:17)
[2019-09-05] MEDS: amLODIPine BESYLATE 5 MG TABLET (FP) PO SCH (22:17)
[2019-09-06] MEDS ORDERED: DEXTROSE 5%-WATER 100 ML IVPB ONE ×3 (01:23→17:53)
[2019-09-06] MEDS ORDERED: MEROPENEM 1 GM VIAL (RESTRICTED TO ID) IVPB ONE ×3 (01:23→17:53)
[2019-09-06] MEDS: MEROPENEM 1 GM in DEXTROSE 5%-WATER 100 ML IVPB SCH ×3 (01:39→17:58)
[2019-09-06] MEDS: INSULIN SLIDING SCALE (NOVOLOG) 1 VIAL SQ SCH ×4 (06:16→21:45)
[2019-09-06] MEDS: INSULIN (LEVEMIR) 100 UNITS/ML UNITS SQ SCH ×2 (07:31→21:44)
[2019-09-06] MEDS ORDERED: INSULIN (LEVEMIR) 100 UNITS/ML UNITS SQ ONE (08:01)
--- NOTE | 2019-09-06 08:55 | PN ---
Progress Note, Physician History of Present Illness: stable no new issues - Current Medication List Current Medications: Active Medications Acetaminophen (Tylenol -) 650 mg PO Q6H PRN PRN Reason: PAIN LEVEL 1-5 Last Admin: 09/04/19 21:11 Dose: 650 mg Al Hydroxide/Mg Hydroxide (Mylanta Oral Suspension -) 30 ml PO Q6H PRN PRN Reason: DYSPEPSIA Last Admin: 08/30/19 22:31 Dose: 30 ml Albuterol Sulfate (Ventolin 0.083% Nebulizer Soln -) 1 amp NEB RQID PRN PRN Reason: SHORT OF BREATH/WHEEZING Amlodipine Besylate (Norvasc -) 5 mg PO HS [facility] Last Admin: 09/05/19 22:17 Dose: 5 mg Atorvastatin Calcium (Lipitor -) 20 mg PO HS [facility] Last Admin: 09/05/19 22:17 Dose: 20 mg Docusate Sodium (Colace -) 100 mg PO Q8H PRN PRN Reason: CONSTIPATION Last Admin: 09/01/19 09:57 Dose: 100 mg Fentanyl (Sublimaze Injection -) 25 mcg IVPUSH [id number] PRN PRN Reason: PAIN-PACU ORDER X 4 DOSES ONLY Finasteride (Proscar -) 5 mg PO DAILY [facility] Last Admin: 09/05/19 11:10 Dose: 5 mg Hydrochlorothiazide (Hctz -) 12.5 mg PO DAILY [facility] Last Admin: 09/05/19 11:08 Dose: 12.5 mg Meropenem 1 gm/ Dextrose 100 mls @ 200 mls/hr IVPB Q8H-IV [facility] Last Admin: 09/06/19 01:39 Dose: 200 mls/hr Lactated Ringer's (Lactated Ringers Solution) 1,000 mls @ 75 mls/hr IV ASDIR [facility] Last Admin: 09/05/19 17:36 Dose: 75 mls/hr Insulin Aspart (Novolog Vial Sliding Scale -) 1 vial SQ [facility]; Protocol Last Admin: 09/06/19 06:16 Dose: Not Given Insulin Detemir (Levemir Vial) 10 units SQ BID@0700,2200 [facility] Last Admin: 09/06/19 07:31 Dose: 10 units Magnesium Citrate (Citroma -) 300 ml PO PRN PRN PRN Reason: CONSTIPATION Last Admin: 08/31/19 12:08 Dose: 300 ml Ondansetron HCl (Zofran Injection) 4 mg IVPUSH Q6H PRN PRN Reason: NAUSEA AND/OR VOMITING Oxycodone HCl (Roxicodone -) 5 mg PO Q6H PRN PRN Reason: PAIN LEVEL 6-10 Last Admin: 09/01/19 09:57 Dose: 5 mg Senna (Senna -) 2 tab PO HS PRN PRN Reason: CONSTIPATION Last Admin: 08/30/19 13:33 Dose: 2 tab Simethicone (Mylicon -) 80 mg PO QID PRN PRN Reason: DYSPEPSIA Last Admin: 09/01/19 11:29 Dose: 80 mg Tamsulosin HCl (Flomax -) 0.4 mg PO DAILY@0830 [facility] Last Admin: 09/05/19 11:08 Dose: 0.4 mg Valsartan (Diovan -) 320 mg PO DAILY [facility] Last Admin: 09/05/19 11:09 Dose: 320 mg - Objective Vital Signs: Vital Signs Temperature 98.1 F 09/06/19 06:28 Pulse Rate 78 09/06/19 06:28 Respiratory Rate 09/06/19 06:28 Blood Pressure 110/52 L 09/06/19 06:28 O2 Sat by Pulse Oximetry (%) 95 09/04/19 20:30 Constitutional: Yes: No Distress, Calm Cardiovascular: Yes: S1, S2 Respiratory: Yes: Regular, CTA Bilaterally Gastrointestinal: Yes: Normal Bowel Sounds, Soft Musculoskeletal: Yes: WNL Extremities: Yes: WNL Neurological: Yes: Alert Psychiatric: Yes: Alert, Oriented Labs: CBC, BMP 09/05/19 18:00 09/05/19 07:35 Assessment/Plan Problem List - Problems (1) BPH loc w urin obs/LUTS Code(s): N40.1 - BENIGN PROSTATIC HYPERPLASIA WITH LOWER URINARY TRACT SYMP (2) Diabetes type 2, controlled Code(s): E11.9 - TYPE 2 DIABETES MELLITUS WITHOUT COMPLICATIONS (3) HTN (hypertension) Code(s): I10 - ESSENTIAL (PRIMARY) HYPERTENSION (4) Hematuria Code(s): R31.9 - HEMATURIA, UNSPECIFIED (5) Hyperlipemia Code(s): E78.5 - HYPERLIPIDEMIA, UNSPECIFIED (6) Leukocytosis Code(s): D72.829 - ELEVATED WHITE BLOOD CELL COUNT, UNSPECIFIED Assessment/Plan ESBL+ Klebsiella UTI BPH s/p TURP/SPC Hematuria - resolved Leukoccytosis - resolved -- continue Meropenem final plan will need to complete the course rest as per the team
[2019-09-06 09:55] LABS: BASO % 0.3 % (0-2.0); EOS % 1.2 % (0-4.5); HEMATOCRIT 23.6 % (35.4-49); HEMOGLOBIN 7.8 GM/dL (11.7-16.9); LYMPH % 12.8 % (8-40); MCH 34.1 pg (25.7-33.7); MCHC 33.2 g/dl (32.0-35.9); MEAN CELL VOLUME 102.8 fl (80-96); MEAN PLT VOLUME 8.6 fl (7.5-11.1); NEUT % 72.7 % (42.8-82.8); PLATELET COUNT 345 K/MM3 (134-434); RDW 13.2 % (11.9-15.9); WHITE BLOOD COUNT 11.3 K/mm3 (4.0-10.0)
[2019-09-06] MEDS: FINASTERIDE 5 MG TABLET (FP) PO SCH (10:01)
[2019-09-06] MEDS: HYDROCHLOROTHIAZIDE 12.5 MG CAPSULE (FP) PO SCH (10:01)
[2019-09-06] MEDS: VALSARTAN 160 MG TABLET (UD) PO SCH (10:03)
[2019-09-06] MEDS ORDERED: PT OWN MED DRAWER 7, Y5N ONE (10:11)
[2019-09-06] MEDS: TAMSULOSIN HCL 0.4 MG CAP PO SCH (10:14)
[2019-09-06 10:25] LABS: ALBUMIN 2.7 g/dl (3.4-5.0); BILIRUBIN,TOTAL 0.9 mg/dL (0.2-1); BLOOD UREA NITROGEN 10.1 mg/dL (7-18); CALCIUM 8.8 mg/dL (8.5-10.1); CREATININE 0.9 mg/dL (0.55-1.3); MAGNESIUM 2.2 mg/dL (1.8-2.4); POTASSIUM 3.8 mmol/L (3.5-5.1); TOT PROT 6.4 g/dl (6.4-8.2)
[2019-09-06 13:17] LABS: ANISOCYTOSIS 1+; MACROCYTOSIS 1+; PLATELET ESTIMATE NORMAL
--- NOTE | 2019-09-06 13:28 | PN ---
Physical Exam: SUBJECTIVE: Patient seen and examined. feeling dizzy today with ambulation. also feels weak. Patient asked me to call his daughter Gem for an update. Patient is consenting for 1 unit of prbc today. OBJECTIVE: Patient is a 74 year old male with a significant past medical history of diabetes 2, hypertension, bph, hld who presents for an elective TURP. Post procedure, developed sofy hematuria and severe scrotal edema. A suprapubic cyststomy was done and suprapubic catheter placed for continuous bladder irrigation. he was also found to have esbl and Kleb UTI and currently on meropenem. He is s/p cystoscopy on 09/04/2019, suprapubic catheter removed. Meraz with gross hematuria post cystoscopy, now urine with pink tinged urine. patient with a significant drop in hmg since admission, for 1 unit of prbc. He is symptomatic and has dizziness with ambulation. will implement fall risk status to maintain safety. Vital Signs Period Temp Pulse Resp BP Sys/Holman Pulse Ox Last 24 Hr 98.1 F-100.3 F 76-89 18-20 108-127/47-68 GENERAL: The patient is awake, alert, and fully oriented, in no acute distress. HEAD: Normal with no signs of trauma. EYES: PERRL, extraocular movements intact, sclera anicteric, conjunctiva clear. No ptosis. ENT: Ears normal, nares patent, oropharynx clear without exudates, moist mucous membranes. NECK: Trachea midline, full range of motion, supple. LUNGS: Breath sounds equal, clear to auscultation bilaterally, no wheezes HEART: Regular rate and rhythm ABDOMEN: Soft, nontender, nondistended, normoactive bowel sounds - suprapubic cath removed, dressing c/d/i (abd pad) EXTREMITIES: no edema. NEUROLOGICAL: Normal speech, gait not observed. PSYCH: Normal mood, normal affect. SKIN: Warm, dry, normal turgor, no rashes or lesions noted Laboratory Results - last 24 hr 09/05/19 09/05/19 09/05/19 16:42 18:00 22:13 WBC 11.8 H RBC 2.27 L Hgb 7.7 L Hct 23.6 L MCV 103.9 H MCH 33.8 H MCHC 32.5 RDW 13.3 Plt Count 327 MPV 8.9 Absolute Neuts (auto) 8.7 H Neutrophils % 73.9 Neutrophils % (Manual) Band Neutrophils % Lymphocytes % 11.7 Lymphocytes % (Manual) Monocytes % 12.9 H Monocytes % (Manual) Eosinophils % 1.2 Eosinophils % (Manual) Basophils % 0.3 Basophils % (Manual) Myelocytes % (Man) Promyelocytes % (Man) Blast Cells % (Manual) Nucleated RBC % 0 Metamyelocytes Hypochromia Platelet Estimate Polychromasia Poikilocytosis Basophilic Stippling Anisocytosis Microcytosis Macrocytosis Sodium Potassium Chloride Carbon Dioxide Anion Gap BUN Creatinine Est GFR (CKD-EPI)AfAm Est GFR (CKD-EPI)NonAf POC Glucometer 220 172 Random Glucose Calcium Magnesium Total Bilirubin AST ALT Alkaline Phosphatase Total Protein Albumin Stool Occult Blood 09/06/19 09/06/19 09/06/19 06:00 06:12 07:50 WBC 11.3 H RBC 2.30 L Hgb 7.8 L Hct 23.6 L MCV 102.8 H MCH 34.1 H MCHC 33.2 RDW 13.2 Plt Count 345 MPV 8.6 Absolute Neuts (auto) 8.2 H Neutrophils % 72.7 Neutrophils % (Manual) 78.3 Band Neutrophils % 0.0 Lymphocytes % 12.8 Lymphocytes % (Manual) 9.4 D Monocytes % 13.0 H Monocytes % (Manual) 4 Eosinophils % 1.2 Eosinophils % (Manual) 1.9 Basophils % 0.3 Basophils % (Manual) 0.0 Myelocytes % (Man) 0 D Promyelocytes % (Man) 0 Blast Cells % (Manual) 0 Nucleated RBC % 1 H Metamyelocytes 1 D Hypochromia 0 Platelet Estimate Normal Polychromasia 2+ Poikilocytosis 0 Basophilic Stippling 1+ Anisocytosis 1+ Microcytosis 0 Macrocytosis 1+ Sodium Potassium Chloride Carbon Dioxide Anion Gap BUN Creatinine Est GFR (CKD-EPI)AfAm Est GFR (CKD-EPI)NonAf POC Glucometer 90 Random Glucose Calcium Magnesium Total Bilirubin AST ALT Alkaline Phosphatase Total Protein Albumin Stool Occult Blood Negative 09/06/19 09/06/19 07:50 11:55 WBC RBC Hgb Hct MCV MCH MCHC RDW Plt Count MPV Absolute Neuts (auto) Neutrophils % Neutrophils % (Manual) Band Neutrophils % Lymphocytes % Lymphocytes % (Manual) Monocytes % Monocytes % (Manual) Eosinophils % Eosinophils % (Manual) Basophils % Basophils % (Manual) Myelocytes % (Man) Promyelocytes % (Man) Blast Cells % (Manual) Nucleated RBC % Metamyelocytes Hypochromia Platelet Estimate Polychromasia Poikilocytosis Basophilic Stippling Anisocytosis Microcytosis Macrocytosis Sodium 136 Potassium 3.8 Chloride 99 Carbon Dioxide 31 Anion Gap 7 L BUN 10.1 Creatinine 0.9 Est GFR (CKD-EPI)AfAm 95.82 Est GFR (CKD-EPI)NonAf 82.67 POC Glucometer 210 Random Glucose 87 Calcium 8.8 Magnesium 2.2 Total Bilirubin 0.9 AST 25 ALT 35 Alkaline Phosphatase 103 Total Protein 6.4 Albumin 2.7 L Stool Occult Blood Active Medications Generic Name Dose Route Start Last Admin Trade Name Freq PRN Reason Stop Dose Admin Acetaminophen 650 mg 08/31/19 08:46 09/04/19 21:11 Tylenol - PO 650 mg Q6H PRN Administration PAIN LEVEL 1-5 Al Hydroxide/Mg Hydroxide 30 ml 08/29/19 13:28 08/30/19 22:31 Mylanta Oral Suspension - PO 30 ml Q6H PRN Administration DYSPEPSIA Albuterol Sulfate 1 amp 08/28/19 19:56 Ventolin 0.083% Nebulizer Soln - NEB RQID PRN SHORT OF BREATH/WHEEZING Amlodipine Besylate 5 mg 08/28/19 22:00 09/05/19 22:17 Norvasc - PO 5 mg HS [facility] Administration Atorvastatin Calcium 20 mg 08/28/19 22:00 09/05/19 22:17 Lipitor - PO 20 mg HS [facility] Administration Docusate Sodium 100 mg 08/28/19 19:56 09/01/19 09:57 Colace - PO 100 mg Q8H PRN Administration CONSTIPATION Fentanyl 25 mcg 09/04/19 15:34 Sublimaze Injection - IVPUSH [id number] PRN PAIN-PACU ORDER X 4 DOSES ONLY Finasteride 5 mg 08/28/19 20:00 09/06/19 10:01 Proscar - PO 5 mg DAILY [facility] Administration Hydrochlorothiazide 12.5 mg 08/29/19 10:00 09/06/19 10:01 Hctz - PO 12.5 mg DAILY [facility] Administration Meropenem 1 gm/ Dextrose 100 mls @ 200 mls/hr 08/30/19 13:00 09/06/19 10:03 IVPB 200 mls/hr Q8H-IV [facility] Administration Lactated Ringer's 1,000 mls @ 75 mls/hr 09/04/19 15:45 09/05/19 17:36 Lactated Ringers Solution IV 75 mls/hr ASDIR [facility] Administration Insulin Aspart 1 vial 08/28/19 22:00 09/06/19 11:59 Novolog Vial Sliding Scale - SQ 4 units ACHS [facility] Administration Protocol Insulin Detemir 10 units 08/29/19 22:00 09/06/19 07:31 Levemir Vial SQ 10 units BID@0700,2200 [facility] Administration Magnesium Citrate 300 ml 08/31/19 11:26 08/31/19 12:08 Citroma - PO 300 ml PRN PRN Administration CONSTIPATION Ondansetron HCl 4 mg 09/04/19 15:34 Zofran Injection IVPUSH Q6H PRN NAUSEA AND/OR VOMITING Oxycodone HCl 5 mg 08/31/19 11:24 09/01/19 09:57 Roxicodone - PO 5 mg Q6H PRN Administration PAIN LEVEL 6-10 Senna 2 tab 08/28/19 19:56 08/30/19 13:33 Senna - PO 2 tab HS PRN Administration CONSTIPATION Simethicone 80 mg 08/31/19 11:26 09/01/19 11:29 Mylicon - PO 80 mg QID PRN Administration DYSPEPSIA Tamsulosin HCl 0.4 mg 08/29/19 10:00 09/06/19 10:14 Flomax - PO 0.4 mg DAILY@0830 [facility] Administration Valsartan 320 mg 08/29/19 10:00 09/06/19 10:03 Diovan - PO 320 mg DAILY [facility] Administration ASSESSMENT/PLAN: Problem List - Problems (1) BPH loc w urin obs/LUTS Assessment/Plan: s/p TURP with suprapubic cath placement, had cystoscopy on 09/04/2019 and suprapubic cath removed. meraz in place and now with pink tinged urine. Code(s): N40.1 - BENIGN PROSTATIC HYPERPLASIA WITH LOWER URINARY TRACT SYMP (2) Urinary tract infection due to ESBL Klebsiella Assessment/Plan: on meropenm per ID. will complete course on 09/12/2019, will need picc line and snf vs home discharge. Code(s): N39.0 - URINARY TRACT INFECTION, SITE NOT SPECIFIED; B96.89 - OTH BACTERIAL AGENTS THE CAUSE OF DISEASES CLASSD ELSWHR (3) Constipation Assessment/Plan: bowel regimen Code(s): K59.00 - CONSTIPATION, UNSPECIFIED (4) Diabetes type 2, controlled Assessment/Plan: controlled. monitor bgms. Code(s): E11.9 - TYPE 2 DIABETES MELLITUS WITHOUT COMPLICATIONS (5) HTN (hypertension) Assessment/Plan: controlled. continue norvasc, hctz, valsartan. Code(s): I10 - ESSENTIAL (PRIMARY) HYPERTENSION (6) Hematuria Assessment/Plan: pink tinged urine, no gross hematuria or clots seen Code(s): R31.9 - HEMATURIA, UNSPECIFIED (7) Hyperlipemia Assessment/Plan: low cholesterol diet Code(s): E78.5 - HYPERLIPIDEMIA, UNSPECIFIED (8) Leukocytosis Assessment/Plan: resolved Code(s): D72.829 - ELEVATED WHITE BLOOD CELL COUNT, UNSPECIFIED (9) PAD (peripheral artery disease) Code(s): I73.9 - PERIPHERAL VASCULAR DISEASE, UNSPECIFIED (10) Acute blood loss anemia Assessment/Plan: for 1 unit of prbc today Code(s): D62 - ACUTE POSTHEMORRHAGIC ANEMIA (11) Acute blood loss as cause of postoperative anemia Code(s): D62 - ACUTE POSTHEMORRHAGIC ANEMIA (12) Symptomatic anemia Code(s): D64.9 - ANEMIA, UNSPECIFIED (13) Prophylactic measure Assessment/Plan: fen tolerating po monitor electrolytes diabetic diet no chemical a/c 2/2 to acute blood loss full code Code(s): Z29.9 - ENCOUNTER FOR PROPHYLACTIC MEASURES, UNSPECIFIED Visit type - Emergency Visit Emergency Visit: Yes ED Registration Date: 08/28/19 Care time: The patient presented to the Emergency Department on the above date and was hospitalized for further evaluation of their emergent condition. - New Patient This patient is new to me today: No - Critical Care Critical Care patient: No - Discharge Referral Referred to [facility] No
[2019-09-06] MEDS: LACTATED RINGERS SOLUTION 1,000 ML IV SCH (15:45)
[2019-09-06] MEDS ORDERED: INSULIN (NOVOLOG) ASPART 100 UNITS/ML 10ML VIAL ONE (21:40)
[2019-09-06] MEDS: ATORVASTATIN CA 20 MG TABLET (FP) PO SCH (21:44)
[2019-09-06] MEDS: amLODIPine BESYLATE 5 MG TABLET (FP) PO SCH (21:45)
[2019-09-07] MEDS ORDERED: DEXTROSE 5%-WATER 100 ML IVPB ONE ×3 (01:48→18:14)
[2019-09-07] MEDS ORDERED: MEROPENEM 1 GM VIAL (RESTRICTED TO ID) IVPB ONE ×3 (01:48→18:14)
[2019-09-07] MEDS: MEROPENEM 1 GM in DEXTROSE 5%-WATER 100 ML IVPB SCH ×3 (02:10→18:16)
[2019-09-07] MEDS: INSULIN SLIDING SCALE (NOVOLOG) 1 VIAL SQ SCH ×3 (06:49→18:11)
[2019-09-07] MEDS: INSULIN (LEVEMIR) 100 UNITS/ML UNITS SQ SCH (06:49)
[2019-09-07 08:40] LABS: BASO % 0.2 % (0-2.0); EOS % 1.1 % (0-4.5); HEMATOCRIT 27.6 % (35.4-49); HEMOGLOBIN 9.2 GM/dL (11.7-16.9); LYMPH % 15.3 % (8-40); MCH 33.3 pg (25.7-33.7); MCHC 33.3 g/dl (32.0-35.9); MEAN CELL VOLUME 100.1 fl (80-96); MEAN PLT VOLUME 8.4 fl (7.5-11.1); MONO % 10.7 % (3.8-10.2); NEUT % 72.7 % (42.8-82.8); PLATELET COUNT 373 K/MM3 (134-434); RBC 2.76 M/mm3 (4.00-5.60); RDW 14.7 % (11.9-15.9); WHITE BLOOD COUNT 12.1 K/mm3 (4.0-10.0)
[2019-09-07 09:02] LABS: ALBUMIN 2.7 g/dl (3.4-5.0); BILIRUBIN,TOTAL 0.8 mg/dL (0.2-1); BLOOD UREA NITROGEN 7.2 mg/dL (7-18); CALCIUM 8.9 mg/dL (8.5-10.1); CREATININE 0.8 mg/dL (0.55-1.3); MAGNESIUM 2.2 mg/dL (1.8-2.4); POTASSIUM 3.8 mmol/L (3.5-5.1); TOT PROT 6.6 g/dl (6.4-8.2)
--- NOTE | 2019-09-07 09:27 | PN ---
Progress Note, Physician History of Present Illness: stable no new issues clear urine - Current Medication List Current Medications: Active Medications Acetaminophen (Tylenol -) 650 mg PO Q6H PRN PRN Reason: PAIN LEVEL 1-5 Last Admin: 09/04/19 21:11 Dose: 650 mg Al Hydroxide/Mg Hydroxide (Mylanta Oral Suspension -) 30 ml PO Q6H PRN PRN Reason: DYSPEPSIA Last Admin: 08/30/19 22:31 Dose: 30 ml Albuterol Sulfate (Ventolin 0.083% Nebulizer Soln -) 1 amp NEB RQID PRN PRN Reason: SHORT OF BREATH/WHEEZING Amlodipine Besylate (Norvasc -) 5 mg PO HS [facility] Last Admin: 09/06/19 21:45 Dose: 5 mg Atorvastatin Calcium (Lipitor -) 20 mg PO HS [facility] Last Admin: 09/06/19 21:44 Dose: 20 mg Docusate Sodium (Colace -) 100 mg PO Q8H PRN PRN Reason: CONSTIPATION Last Admin: 09/01/19 09:57 Dose: 100 mg Fentanyl (Sublimaze Injection -) 25 mcg IVPUSH [id number] PRN PRN Reason: PAIN-PACU ORDER X 4 DOSES ONLY Finasteride (Proscar -) 5 mg PO DAILY [facility] Last Admin: 09/06/19 10:01 Dose: 5 mg Hydrochlorothiazide (Hctz -) 12.5 mg PO DAILY [facility] Last Admin: 09/06/19 10:01 Dose: 12.5 mg Meropenem 1 gm/ Dextrose 100 mls @ 200 mls/hr IVPB Q8H-IV [facility] Last Admin: 09/07/19 02:10 Dose: 200 mls/hr Lactated Ringer's (Lactated Ringers Solution) 1,000 mls @ 75 mls/hr IV ASDIR [facility] Last Admin: 09/06/19 15:45 Dose: Not Given Insulin Aspart (Novolog Vial Sliding Scale -) 1 vial SQ [facility]; Protocol Last Admin: 09/07/19 06:49 Dose: Not Given Insulin Detemir (Levemir Vial) 10 units SQ BID@0700,2200 [facility] Last Admin: 09/07/19 06:49 Dose: 10 units Magnesium Citrate (Citroma -) 300 ml PO PRN PRN PRN Reason: CONSTIPATION Last Admin: 08/31/19 12:08 Dose: 300 ml Ondansetron HCl (Zofran Injection) 4 mg IVPUSH Q6H PRN PRN Reason: NAUSEA AND/OR VOMITING Oxycodone HCl (Roxicodone -) 5 mg PO Q6H PRN PRN Reason: PAIN LEVEL 6-10 Last Admin: 09/01/19 09:57 Dose: 5 mg Senna (Senna -) 2 tab PO HS PRN PRN Reason: CONSTIPATION Last Admin: 08/30/19 13:33 Dose: 2 tab Simethicone (Mylicon -) 80 mg PO QID PRN PRN Reason: DYSPEPSIA Last Admin: 09/01/19 11:29 Dose: 80 mg Tamsulosin HCl (Flomax -) 0.4 mg PO DAILY@0830 [facility] Last Admin: 09/06/19 10:14 Dose: 0.4 mg Valsartan (Diovan -) 320 mg PO DAILY [facility] Last Admin: 09/06/19 10:03 Dose: 320 mg - Objective Vital Signs: Vital Signs Temperature 98.1 F 09/07/19 04:00 Pulse Rate 75 09/07/19 04:00 Respiratory Rate 09/07/19 04:00 Blood Pressure 113/59 L 09/07/19 04:00 O2 Sat by Pulse Oximetry (%) 95 09/04/19 20:30 Constitutional: Yes: No Distress, Calm Cardiovascular: Yes: S1, S2 Respiratory: Yes: Regular, CTA Bilaterally Gastrointestinal: Yes: Normal Bowel Sounds, Soft Musculoskeletal: Yes: WNL Extremities: Yes: WNL Neurological: Yes: Alert, Oriented Psychiatric: Yes: Alert, Oriented Labs: CBC, BMP 09/07/19 08:10 09/07/19 08:10 Assessment/Plan Problem List - Problems (1) BPH loc w urin obs/LUTS Code(s): N40.1 - BENIGN PROSTATIC HYPERPLASIA WITH LOWER URINARY TRACT SYMP (2) Diabetes type 2, controlled Code(s): E11.9 - TYPE 2 DIABETES MELLITUS WITHOUT COMPLICATIONS (3) HTN (hypertension) Code(s): I10 - ESSENTIAL (PRIMARY) HYPERTENSION (4) Hematuria Code(s): R31.9 - HEMATURIA, UNSPECIFIED (5) Hyperlipemia Code(s): E78.5 - HYPERLIPIDEMIA, UNSPECIFIED (6) Leukocytosis Code(s): D72.829 - ELEVATED WHITE BLOOD CELL COUNT, UNSPECIFIED Assessment/Plan ESBL+ Klebsiella UTI BPH s/p TURP/SPC Hematuria - resolved Leukoccytosis - resolved -- continue Meropenem final plan will need to complete the course rest as per the team
[2019-09-07] MEDS: FINASTERIDE 5 MG TABLET (FP) PO SCH (10:59)
[2019-09-07] MEDS: TAMSULOSIN HCL 0.4 MG CAP PO SCH (10:59)
[2019-09-07] MEDS: HYDROCHLOROTHIAZIDE 12.5 MG CAPSULE (FP) PO SCH (10:59)
[2019-09-07] MEDS: VALSARTAN 160 MG TABLET (UD) PO SCH (10:59)
--- NOTE | 2019-09-07 14:12 | DS ---
Physical Exam: SUBJECTIVE: Patient seen and examined, denies any further dizziness or headaches. OBJECTIVE: Patient is a 74 year old male with a significant past medical history of diabetes 2, hypertension, bph, hld who presents for an elective TURP. Post procedure, developed sofy hematuria and severe scrotal edema. A suprapubic cyststomy was done and suprapubic catheter placed for continuous bladder irrigation. he was also found to have esbl and Kleb UTI and currently on meropenem. He is s/p cystoscopy on 09/04/2019, suprapubic catheter removed. Meraz with gross hematuria post cystoscopy, now urine with pink tinged urine. As per Kecia, patient is cleared for discharge home with meraz to leg bag with outpatient follow up. He has a PICC line and will continue Meropenm per Dr Jaime. Vital Signs Period Temp Pulse Resp BP Sys/Holman Pulse Ox Last 24 Hr 98.1 F-99.2 F 75-82 20-20 113-124/56-62 PHYSICAL EXAM GENERAL: The patient is awake, alert, and fully oriented, in no acute distress. HEAD: Normal with no signs of trauma. EYES: PERRL, extraocular movements intact, sclera anicteric, conjunctiva clear. No ptosis. ENT: Ears normal, nares patent, oropharynx clear without exudates, moist mucous membranes. NECK: Trachea midline, full range of motion, supple. LUNGS: Breath sounds equal, clear to auscultation bilaterally, no wheezes HEART: Regular rate and rhythm ABDOMEN: Soft, nontender, nondistended, normoactive bowel sounds - suprapubic cath removed, dressing c/d/i (abd pad) EXTREMITIES: no edema. NEUROLOGICAL: Normal speech, gait not observed. PSYCH: Normal mood, normal affect. SKIN: Warm, dry, normal turgor, no rashes or lesions noted LABS Laboratory Results - last 24 hr 09/06/19 09/06/19 09/06/19 07:50 15:00 16:24 WBC RBC Hgb Hct MCV MCH MCHC RDW Plt Count MPV Absolute Neuts (auto) Neutrophils % Lymphocytes % Monocytes % Eosinophils % Basophils % Nucleated RBC % Sodium Potassium Chloride Carbon Dioxide Anion Gap BUN Creatinine Est GFR (CKD-EPI)AfAm Est GFR (CKD-EPI)NonAf POC Glucometer 133 Random Glucose Calcium Magnesium Total Bilirubin AST ALT Alkaline Phosphatase Total Protein Albumin Vitamin B12 964 Serum Folate 8 Blood Type O POSITIVE Antibody Screen Negative Crossmatch See Detail 09/06/19 09/07/19 09/07/19 21:37 06:47 08:10 WBC 12.1 H RBC 2.76 L Hgb 9.2 L Hct 27.6 L D MCV 100.1 H MCH 33.3 MCHC 33.3 RDW 14.7 D Plt Count 373 MPV 8.4 Absolute Neuts (auto) 8.8 H Neutrophils % 72.7 Lymphocytes % 15.3 Monocytes % 10.7 H Eosinophils % 1.1 Basophils % 0.2 Nucleated RBC % 0 Sodium Potassium Chloride Carbon Dioxide Anion Gap BUN Creatinine Est GFR (CKD-EPI)AfAm Est GFR (CKD-EPI)NonAf POC Glucometer 183 78 Random Glucose Calcium Magnesium Total Bilirubin AST ALT Alkaline Phosphatase Total Protein Albumin Vitamin B12 Serum Folate Blood Type Antibody Screen Crossmatch 09/07/19 09/07/19 08:10 10:54 WBC RBC Hgb Hct MCV MCH MCHC RDW Plt Count MPV Absolute Neuts (auto) Neutrophils % Lymphocytes % Monocytes % Eosinophils % Basophils % Nucleated RBC % Sodium 138 Potassium 3.8 Chloride 102 Carbon Dioxide 29 Anion Gap 7 L BUN 7.2 Creatinine 0.8 Est GFR (CKD-EPI)AfAm 100.57 Est GFR (CKD-EPI)NonAf 86.77 POC Glucometer 142 Random Glucose 75 Calcium 8.9 Magnesium 2.2 Total Bilirubin 0.8 AST 21 ALT 30 Alkaline Phosphatase 104 Total Protein 6.6 Albumin 2.7 L Vitamin B12 Serum Folate Blood Type Antibody Screen Crossmatch HOSPITAL COURSE: Date of Admission:08/28/19 Date of Discharge: 09/07/19 Minutes to complete discharge: 45 Discharge Summary Problems reviewed: Yes Reason For Visit: BENIGN PROSTATIC HYPERPLASIA WITH LOWER URINARY TR Current Active Problems Acute blood loss anemia (Acute) Acute blood loss as cause of postoperative anemia (Acute) BPH loc w urin obs/LUTS (Acute) Constipation (Acute) Diabetes type 2, controlled (Acute) HTN (hypertension) (Acute) Hematuria (Acute) Hyperlipemia (Acute) Leukocytosis (Acute) PAD (peripheral artery disease) (Acute) Prophylactic measure (Acute) Symptomatic anemia (Acute) Urinary tract infection due to ESBL Klebsiella (Acute) Condition: Improved - Instructions Diet, Activity, Other Instructions: Please see Dr. Mcdonnell on TuesdaySeptember 10 for for a post hospital follow up. You will be sent home with a meraz catheter. You were found to have a urinary tract infection and you will be sent home with meropenum until 09/12/2019. Questions? Please call me Lisa Braswell [place] [employer] [phone] Referrals: Kelechi Mcdonnell MD [Staff Physician] - (Please call Dr. Mcdonnell office and confirm appointment for Tuesday at 10.am. ) Disposition: HOME - Home Medications Comprehensive Discharge Medication List: Ambulatory Orders Aspirin [ASA -] 81 mg PO DAILY 01/06/17 Amlodipine Besylate [Norvasc -] 5 mg PO HS 08/28/19 Atorvastatin Ca [Lipitor] 20 mg PO HS 08/28/19 Clopidogrel Bisulfate [Plavix] 1 tab PO DAILY 08/28/19 Dulaglutide [Trulicity] 0.75 mg SQ WEEKLY 08/28/19 Finasteride [Proscar -] 5 mg PO DAILY 08/28/19 Tamsulosin HCl [Flomax] 0.4 mg PO DAILY 08/28/19 Telmisartan/Hydrochlorothiazid [Telmisartan-Hctz 80-12.5 mg Tb] 1 each PO DAILY 08/28/19 Problem List - Problems (1) BPH loc w urin obs/LUTS Assessment/Plan: s/p TURP with suprapubic cath placement, had cystoscopy on 09/04/2019 and suprapubic cath removed. meraz in place and now with clear urine Code(s): N40.1 - BENIGN PROSTATIC HYPERPLASIA WITH LOWER URINARY TRACT SYMP (2) Urinary tract infection due to ESBL Klebsiella Assessment/Plan: on meropenm per ID. will complete course on 09/12/2019, has picc line Code(s): N39.0 - URINARY TRACT INFECTION, SITE NOT SPECIFIED; B96.89 - OTH BACTERIAL AGENTS THE CAUSE OF DISEASES CLASSD ELSWHR (3) Constipation Assessment/Plan: bowel regimen Code(s): K59.00 - CONSTIPATION, UNSPECIFIED (4) Diabetes type 2, controlled Assessment/Plan: controlled. monitor bgms. Code(s): E11.9 - TYPE 2 DIABETES MELLITUS WITHOUT COMPLICATIONS (5) HTN (hypertension) Assessment/Plan: controlled. continue norvasc, hctz, valsartan. Code(s): I10 - ESSENTIAL (PRIMARY) HYPERTENSION (6) Hematuria Assessment/Plan: resolved Code(s): R31.9 - HEMATURIA, UNSPECIFIED (7) Hyperlipemia Assessment/Plan: low cholesterol diet Code(s): E78.5 - HYPERLIPIDEMIA, UNSPECIFIED (8) Leukocytosis Assessment/Plan: resolved Code(s): D72.829 - ELEVATED WHITE BLOOD CELL COUNT, UNSPECIFIED (9) PAD (peripheral artery disease) Code(s): I73.9 - PERIPHERAL VASCULAR DISEASE, UNSPECIFIED (10) Acute blood loss anemia Assessment/Plan: s/p 1 unit of prbc today Code(s): D62 - ACUTE POSTHEMORRHAGIC ANEMIA (11) Acute blood loss as cause of postoperative anemia Code(s): D62 - ACUTE POSTHEMORRHAGIC ANEMIA (12) Symptomatic anemia Code(s): D64.9 - ANEMIA, UNSPECIFIED (13) Prophylactic measure Assessment/Plan: discharge home Code(s): Z29.9 - ENCOUNTER FOR PROPHYLACTIC MEASURES, UNSPECIFIED This patient is new to me today: No Emergency Visit: Yes ED Registration Date: 08/28/19 Care time: The patient presented to the Emergency Department on the above date and was hospitalized for further evaluation of their emergent condition. Critical Care patient: No - Discharge Referral Referred to [facility] No
[2019-09-07 17:28] VITALS: BP 138/70; PULSE 84; TEMP 97.6
[2019-09-07] MEDS: LACTATED RINGERS SOLUTION 1,000 ML IV SCH (18:11)
== END 2019-09-07 21:19 | disposition home or self-care (01) | DRG 663 ==
LOC: JASUSAT 06:43 → JASU-SURG 06:43 → JSAMEDAYSX 16:20 → J6S 19:45 → J8W 08-30 16:30
PROVIDERS: ADMIT Urology; ATTEND Nurse Practitioner Family
PROC: 0VB08ZZ Excision of Prostate, Via Natural or Artificial Opening Endoscopic (ICD-10-PCS; 2019-08-28)
PROC: 3E1K88Z Irrigation of Genitourinary Tract using Irrigating Substance, Via Natural or Artificial Opening Endoscopic (ICD-10-PCS; 2019-08-28)
PROC: 0V508ZZ Destruction of Prostate, Via Natural or Artificial Opening Endoscopic (ICD-10-PCS; principal; 2019-08-28 10:30)
PROC: 0T9B00Z Drainage of Bladder with Drainage Device, Open Approach (ICD-10-PCS; 2019-08-28 10:30)
PROC: BT00ZZZ Plain Radiography of Bladder (ICD-10-PCS; 2019-09-04)
PROC: 0TJB8ZZ Inspection of Bladder, Via Natural or Artificial Opening Endoscopic (ICD-10-PCS; 2019-09-04)
PROC: 30233N1 Transfusion of Nonautologous Red Blood Cells into Peripheral Vein, Percutaneous Approach (ICD-10-PCS; 2019-09-06)
PROC: 02HV33Z Insertion of Infusion Device into Superior Vena Cava, Percutaneous Approach (ICD-10-PCS; 2019-09-07)
PROC: B518ZZA Fluoroscopy of Superior Vena Cava, Guidance (ICD-10-PCS; 2019-09-07)
DX: N99.89 Other postprocedural complications and disorders of genitourinary system (principal); N13.8 Other obstructive and reflux uropathy; N39.0 Urinary tract infection, site not specified; D62 Acute posthemorrhagic anemia; N40.1 Benign prostatic hyperplasia with lower urinary tract symptoms; I10 Essential (primary) hypertension; E78.5 Hyperlipidemia, unspecified; D72.829 Elevated white blood cell count, unspecified; E11.51 Type 2 diabetes mellitus with diabetic peripheral angiopathy without gangrene; N50.89 Other specified disorders of the male genital organs; K59.09 Other constipation; B96.1 Klebsiella pneumoniae [K. pneumoniae] as the cause of diseases classified elsewhere
CPT/HCPCS: 36415; 36430; 36511; 36569; 74018-TC-FY; 76000-TC-FY; 76775-TC; 77001-TC-FY; 80053; 82272; 82607; 82728; 82746; 82962; 83036; 83540; 83550; 83735; 84100; 84443; 84550; 85025; 85027; 86850; 86900; 86901; 86922; 87040; 87086; 87186; 88108; 90670; 94760; 97116-GP; 97161-GP; C1751; J0131; P9038; P9058

== ENCOUNTER 2019-09-08 09:39 | Day surgery (SDC) | payer OTHER ==
[2019-09-08] MEDS ORDERED: ERTAPENEM SODIUM 1 GM in SODIUM CHLORIDE 50 ML IVPB ONE (10:00)
[2019-09-08 16:23] VITALS: BP 129/60; PULSE 76; TEMP 98.4
== END 2019-09-08 11:30 | disposition home or self-care (01) ==
LOC: JINFUSION 09:39 → J7W 09:48 → JINFUSION 11:30
PROVIDERS: ATTEND Internal Medicine Infectious Disease
DX: N39.0 Urinary tract infection, site not specified (principal); B96.1 Klebsiella pneumoniae [K. pneumoniae] as the cause of diseases classified elsewhere; E11.51 Type 2 diabetes mellitus with diabetic peripheral angiopathy without gangrene
CPT/HCPCS: 96365

== ENCOUNTER 2019-09-09 08:53 | Day surgery (SDC) | payer OTHER ==
[2019-09-09] MEDS ORDERED: ERTAPENEM SODIUM 1 GM in SODIUM CHLORIDE 50 ML IVPB ONE (09:30)
[2019-09-09 09:32] VITALS: BP 139/62; PULSE 81; TEMP 97.9
== END 2019-09-09 09:58 | disposition home or self-care (01) ==
LOC: J7W 08:53 → JINFUSION 08:53
PROVIDERS: ATTEND Internal Medicine Infectious Disease
DX: N39.0 Urinary tract infection, site not specified (principal); E11.51 Type 2 diabetes mellitus with diabetic peripheral angiopathy without gangrene; B96.1 Klebsiella pneumoniae [K. pneumoniae] as the cause of diseases classified elsewhere
CPT/HCPCS: 96365

== ENCOUNTER 2019-09-10 09:11 | Day surgery (SDC) | payer OTHER ==
[2019-09-10] MEDS ORDERED: ERTAPENEM SODIUM 1 GM VIAL ONE (09:26)
[2019-09-10] MEDS ORDERED: SODIUM CHLORIDE 100 ML IVPB ONE (09:27)
[2019-09-10] MEDS ORDERED: ERTAPENEM SODIUM 1 GM in SODIUM CHLORIDE 100 ML IVPB ONE (09:45)
[2019-09-10 10:12] VITALS: TEMP 98.5
[2019-09-10 11:19] VITALS: BP 121/60; PULSE 76
== END 2019-09-10 10:50 | disposition home or self-care (01) ==
LOC: JINFUSION 09:11
PROVIDERS: ATTEND Internal Medicine Infectious Disease
DX: N39.0 Urinary tract infection, site not specified (principal); E11.51 Type 2 diabetes mellitus with diabetic peripheral angiopathy without gangrene; B96.1 Klebsiella pneumoniae [K. pneumoniae] as the cause of diseases classified elsewhere
CPT/HCPCS: 96365

== ENCOUNTER 2019-09-11 09:24 | Day surgery (SDC) | payer OTHER ==
[~2019-09-11 09:24] MED LIST: ERTAPENEM SODIUM 1 GM in SODIUM CHLORIDE 50 ML IVPB ONE
[2019-09-11] MEDS ORDERED: ERTAPENEM SODIUM 1 GM VIAL ONE (09:48)
[2019-09-11] MEDS ORDERED: SODIUM CHLORIDE 100 ML IVPB ONE (09:48)
[2019-09-11 10:17] VITALS: TEMP 98.2
[2019-09-11 11:01] VITALS: BP 125/58; PULSE 77
== END 2019-09-11 11:02 | disposition home or self-care (01) ==
LOC: JINFUSION 09:24
PROVIDERS: ATTEND Internal Medicine Infectious Disease
DX: N39.0 Urinary tract infection, site not specified (principal); E11.51 Type 2 diabetes mellitus with diabetic peripheral angiopathy without gangrene; B96.1 Klebsiella pneumoniae [K. pneumoniae] as the cause of diseases classified elsewhere
CPT/HCPCS: 96365

== ENCOUNTER 2019-09-12 09:11 | Day surgery (SDC) | payer OTHER ==
[~2019-09-12 09:11] MED LIST changes: +ERTAPENEM SODIUM 1 GM in SODIUM CHLORIDE 100 ML IVPB ONE; -ERTAPENEM SODIUM 1 GM in SODIUM CHLORIDE 50 ML IVPB ONE
[2019-09-12] MEDS ORDERED: SODIUM CHLORIDE 100 ML IVPB ONE (10:04)
[2019-09-12] MEDS ORDERED: ERTAPENEM SODIUM 1 GM VIAL ONE (10:04)
[2019-09-12 11:44] VITALS: BP 117/57; PULSE 82; TEMP 98.6
== END 2019-09-12 11:35 | disposition home or self-care (01) ==
LOC: JINFUSION 09:11
PROVIDERS: ATTEND Internal Medicine Infectious Disease
DX: N39.0 Urinary tract infection, site not specified (principal); E11.51 Type 2 diabetes mellitus with diabetic peripheral angiopathy without gangrene; B96.1 Klebsiella pneumoniae [K. pneumoniae] as the cause of diseases classified elsewhere
CPT/HCPCS: 96365

== ENCOUNTER 2019-09-13 08:38 | Day surgery (SDC) | payer OTHER ==
[2019-09-13] MEDS ORDERED: ERTAPENEM SODIUM 1 GM VIAL ONE (08:51)
[2019-09-13] MEDS ORDERED: SODIUM CHLORIDE 100 ML IVPB ONE (08:51)
[2019-09-13] MEDS ORDERED: ERTAPENEM SODIUM 1 GM in SODIUM CHLORIDE 100 ML IVPB ONE (09:00)
[2019-09-13 09:10] VITALS: TEMP 97.5
[2019-09-13 11:40] VITALS: BP 112/60; PULSE 79
== END 2019-09-13 10:00 | disposition home or self-care (01) ==
LOC: JINFUSION 08:38
PROVIDERS: ATTEND Internal Medicine Infectious Disease
DX: N39.0 Urinary tract infection, site not specified (principal); E11.51 Type 2 diabetes mellitus with diabetic peripheral angiopathy without gangrene; B96.1 Klebsiella pneumoniae [K. pneumoniae] as the cause of diseases classified elsewhere
CPT/HCPCS: 96365

== ENCOUNTER 2019-09-14 08:24 | Day surgery (SDC) | payer OTHER ==
[2019-09-14] MEDS ORDERED: ERTAPENEM SODIUM 1 GM VIAL ONE ×2 (08:48→08:57)
[2019-09-14] MEDS ORDERED: SODIUM CHLORIDE 100 ML IVPB ONE ×2 (08:48→08:57)
[2019-09-14] MEDS: ERTAPENEM SODIUM 1 GM in SODIUM CHLORIDE 100 ML IVPB ONE ×2 (09:05→09:35)
[2019-09-14 10:21] VITALS: BP 110/64; PULSE 77; TEMP 97.7
== END 2019-09-14 10:25 | disposition home or self-care (01) ==
LOC: JINFUSION 08:24
PROVIDERS: ATTEND Internal Medicine Infectious Disease
DX: N39.0 Urinary tract infection, site not specified (principal); E11.51 Type 2 diabetes mellitus with diabetic peripheral angiopathy without gangrene; B96.1 Klebsiella pneumoniae [K. pneumoniae] as the cause of diseases classified elsewhere
CPT/HCPCS: 96365

== ENCOUNTER 2020-12-12 04:04 | Day surgery (SDC) | payer OTHER ==
[2020-12-12 07:07] VITALS: BMI 27.5
[2020-12-12] MEDS ORDERED: LIDOCAINE HCL/PF 1% SDV 5ML VIAL ONE (07:12)
[2020-12-12] MEDS ORDERED: DEXAMETHASONE SOD PHOSPHATE/PF 10 MG/ML SDV ONE (07:12)
[2020-12-12] MEDS ORDERED: SODIUM CHLORIDE 0.9% P/F 10 ML VIAL IJ ONE (07:30)
[2020-12-12] MEDS ORDERED: TRIAMCINOLONE ACET 40MG/1ML VIAL ONE (07:33)
[2020-12-12] MEDS ORDERED: IOHEXOL 180 MG/1 ML ML IJ ONE (08:24)
[2020-12-12] MEDS ORDERED: LIDOCAINE HCL 1% PRESERVATIVE FREE - 30ML VIAL INF ONE (08:25)
[2020-12-12] MEDS ORDERED: DEXAMETHASONE SOD PHOSPHATE 4 MG/1 ML VIAL IVPUSH ONE (08:26)
[2020-12-12 09:58] VITALS: BP 142/70; PULSE 74; TEMP 97.8
== END 2020-12-12 09:30 | disposition home or self-care (01) ==
LOC: JASU-SURG 04:04
PROVIDERS: ATTEND Pain Medicine Pain Medicine
PROC: 3E0R33Z Introduction of Anti-inflammatory into Spinal Canal, Percutaneous Approach (ICD-10-PCS; 2020-12-12)
PROC: 3E0R3BZ Introduction of Anesthetic Agent into Spinal Canal, Percutaneous Approach (ICD-10-PCS; principal; 2020-12-12 08:30)
DX: M54.16 Radiculopathy, lumbar region (principal)
CPT/HCPCS: 76000-TC-FY

== ENCOUNTER 2021-01-09 04:11 | Day surgery (SDC) | payer OTHER ==
[2021-01-07 17:09] VITALS: BMI 28.2
[2021-01-09] MEDS ORDERED: LIDOCAINE HCL/PF 1% SDV 5ML VIAL ONE (07:29)
[2021-01-09] MEDS ORDERED: BUPIVACAINE HCL/PF 0.5% (5MG/ML) 10 ML VIAL ONE ×2 (07:29→08:47)
[2021-01-09] MEDS ORDERED: TRIAMCINOLONE ACET 40MG/1ML VIAL ONE ×2 (07:29→08:47)
[2021-01-09] MEDS ORDERED: SODIUM CHLORIDE 0.9% P/F 10 ML VIAL IJ ONE (07:35)
[2021-01-09] MEDS ORDERED: BUPIVACAINE HCL/PF 0.75% 10 ML VIAL ONE (08:47)
[2021-01-09] MEDS ORDERED: BUPIVACAINE HCL/PF 0.25% (2.5MG/ML) 10 ML VIAL ONE (08:47)
[2021-01-09] MEDS ORDERED: LIDOCAINE 1% P/F 10 MG/ML VIAL PNB ONE ×2 (09:27→09:35)
[2021-01-09] MEDS ORDERED: IOHEXOL 180 MG/1 ML ML IJ ONE ×2 (09:27→09:42)
[2021-01-09] MEDS ORDERED: DEXAMETHASONE SOD PHOSPHATE 10 MG/1 ML VIAL IM ONE ×2 (09:29→09:45)
[2021-01-09 10:19] VITALS: BP 127/63; PULSE 63; TEMP 97.3
== END 2021-01-09 10:10 | disposition home or self-care (01) ==
LOC: JASU-SURG 04:11
PROVIDERS: ATTEND Pain Medicine Pain Medicine
PROC: 3E0R33Z Introduction of Anti-inflammatory into Spinal Canal, Percutaneous Approach (ICD-10-PCS; 2021-01-09)
PROC: 3E0R3BZ Introduction of Anesthetic Agent into Spinal Canal, Percutaneous Approach (ICD-10-PCS; principal; 2021-01-09 09:30)
DX: M54.16 Radiculopathy, lumbar region (principal)
CPT/HCPCS: 76000-TC-FY; J1100

== ENCOUNTER 2021-04-20 09:55 | Emergency (ER) | payer OTHER ==
[2021-04-20 10:01] VITALS: BP 161/72; PULSE 66; TEMP 98; BMI 27.3
[2021-04-20] MEDS ORDERED: METHOCARBAMOL 500 MG TABLET PO ONE (11:29)
[2021-04-20] MEDS ORDERED: KETOROLAC TROMETHAMINE 60 MG/2 ML VIAL IM ONE (11:29)
[2021-04-20] MEDS ORDERED: LIDOCAINE 5% TOPICAL PATCH TP ONE (11:30)
[2021-04-20] MEDS ORDERED: METHOCARBAMOL 500 MG TABLET ONE (11:37)
[2021-04-20] MEDS ORDERED: LIDOCAINE 5% TOPICAL PATCH ONE (11:37)
[2021-04-20] MEDS ORDERED: KETOROLAC TROMETHAMINE 30 MG/1 ML VIAL ONE (11:37)
[2021-04-20 11:46] LABS: PH,URINE 6.5 (5.0-8.0); URINE APPEARANCE CLEAR; URINE BILIRUBIN NEGATIVE (NEGATIVE); URINE COLOR YELLOW; URINE GLUCOSE (UA) TRACE (NEGATIVE); URINE KETONE NEGATIVE (NEGATIVE); URINE LEUK ESTERASE NEGATIVE (NEGATIVE); URINE NITRITE NEGATIVE (NEGATIVE); URINE PROTEIN NEGATIVE (NEGATIVE)
== END 2021-04-20 12:52 | disposition home or self-care (01) ==
LOC: JERFT 09:55
PROC: 3E0233Z Introduction of Anti-inflammatory into Muscle, Percutaneous Approach (ICD-10-PCS; principal; 2021-04-20)
DX: M54.41 Lumbago with sciatica, right side (principal)
CPT/HCPCS: 81003; 87077; 87086; 96372; 99284-25

== ENCOUNTER 2021-11-02 11:03 | Emergency (ER) | payer OTHER ==
[2021-11-02 11:21] VITALS: TEMP 98.3; BMI 25.0
[2021-11-02 14:12] LABS: BASO % 0.2 % (0-2.0); EOS % 0.9 % (0-4.5); HEMATOCRIT 33.7 % (35.4-49); HEMOGLOBIN 11.2 GM/dL (11.7-16.9); LYMPH % 21.2 % (8-40); MCH 32.5 pg (25.7-33.7); MCHC 33.2 g/dl (32.0-35.9); MEAN PLT VOLUME 8.9 fl (7.5-11.1); MONO % 12.8 % (3.8-10.2); NEUT % 64.9 % (42.8-82.8); PLATELET COUNT 249 10^3/uL (134-434); RBC 3.44 M/mm3 (4.00-5.60); RDW 17.8 % (11.9-15.9); WHITE BLOOD COUNT 7.3 K/mm3 (4.0-10.0)
[2021-11-02 14:15] LABS: EPI CELLS 1 /uL (0-25.1); HYALINE CASTS 0 /uL (0-3.1); URINE APPEARANCE CLOUDY; URINE BACTERIA 1581 /uL (0-1359); URINE BILIRUBIN NEGATIVE (NEGATIVE); URINE COLOR YELLOW; URINE GLUCOSE (UA) 2+ (NEGATIVE); URINE KETONE NEGATIVE (NEGATIVE); URINE LEUK ESTERASE 2+ (NEGATIVE); URINE NITRITE NEGATIVE (NEGATIVE); URINE PROTEIN NEGATIVE (NEGATIVE); URINE RBC 9 /uL (0-23.9); URINE WBC 951 /uL (0-25.8)
[2021-11-02 14:26] LABS: CALCIUM 9.3 mg/dL (8.5-10.1)
[2021-11-02 14:28] LABS: ALBUMIN 3.5 g/dl (3.4-5.0); BLOOD UREA NITROGEN 26.4 mg/dL (7-18); MAGNESIUM 2.6 mg/dL (1.8-2.4)
[2021-11-02 14:30] LABS: CREATININE 1.8 mg/dL (0.55-1.3)
[2021-11-02 14:32] LABS: BILIRUBIN,TOTAL 0.8 mg/dL (0.2-1); TOT PROT 8.4 g/dl (6.4-8.2)
[2021-11-02] MEDS ORDERED: SULFAMETHOXAZOLE/TRIMETHOPRIM 800MG/160MG D.S. TABLET PO ONE (17:59)
[2021-11-02] MEDS ORDERED: SULFAMETHOXAZOLE/TRIMETHOPRIM 800MG/160MG D.S. TABLET ONE (18:28)
[2021-11-02 18:46] VITALS: BP 136/79; PULSE 80
== END 2021-11-02 18:46 | disposition home or self-care (01) ==
LOC: JER 11:03
DX: N39.0 Urinary tract infection, site not specified (principal); R20.2 Paresthesia of skin; R79.89 Other specified abnormal findings of blood chemistry
CPT/HCPCS: 36415; 71046-TC-FY; 80053; 81003; 83735; 84484; 85025; 87086; 87186; 93005; 93010; 99285-25

== ENCOUNTER 2022-12-12 09:52 | Inpatient (IN) | payer OTHER ==
[2022-12-12] MEDS ORDERED: MECLIZINE HCL 25 MG TABLET (FP) PO ONE (10:37)
[2022-12-12] MEDS ORDERED: SODIUM CHLORIDE 0.9% 500 ML INFUS.BAG IV ONE (10:37)
[2022-12-12] MEDS ORDERED: MECLIZINE HCL 25 MG TABLET (FP) ONE (10:40)
[2022-12-12 10:48] LABS: BASO % 0.3 % (0-2.0); EOS % 0.2 % (0-4.5); HEMATOCRIT 36.9 % (35.4-49); HEMOGLOBIN 12.3 GM/dL (11.7-16.9); LYMPH % 4.5 % (8-40); MCH 34.2 pg (25.7-33.7); MCHC 33.2 g/dl (32.0-35.9); MEAN PLT VOLUME 9.8 fl (7.5-11.1); MONO % 11.3 % (3.8-10.2); NEUT % 83.7 % (42.8-82.8); PLATELET COUNT 157 10^3/uL (134-434); RBC 3.58 M/mm3 (4.00-5.60); WHITE BLOOD COUNT 22.4 K/mm3 (4.0-10.0)
[2022-12-12 11:00] LABS: INR 1.19 (0.83-1.09); PROTHROMBIN TIME (PATIENT) 13.8 SEC (9.7-13.0)
[2022-12-12 11:09] LABS: POTASSIUM 4.6 mmol/L (3.5-5.1)
[2022-12-12 11:12] LABS: ALBUMIN 3.6 g/dl (3.4-5.0); BLOOD UREA NITROGEN 38.7 mg/dL (7-18); CALCIUM 9.3 mg/dL (8.5-10.1); MAGNESIUM 2.1 mg/dL (1.8-2.4)
[2022-12-12 11:14] LABS: CREATININE 2.2 mg/dL (0.55-1.3)
[2022-12-12 11:16] LABS: BILIRUBIN,TOTAL 0.8 mg/dL (0.2-1)
[2022-12-12 11:35] LABS: ANISOCYTOSIS 0; HELMET CELLS 0; HOWELL-JOLLY BODIES 0; MACROCYTOSIS 0; OVALOCYTE 0; ROULEAU 0; SICKELED CELLS 0; TARGET CELLS 0; TEAR DROP CELLS 0; TOXIC GRANULATION 0
[2022-12-12] MEDS ORDERED: SODIUM CHLORIDE 0.9% 1000 ML INFUS.BAG IV ONE (12:35)
[2022-12-12 13:06] LABS: EPI CELLS 5 /uL (0-25.1); HYALINE CASTS 1 /uL (0-3.1); PH,URINE 5.5 (5.0-8.0); URINE APPEARANCE CLEAR; URINE BACTERIA 4770 /uL (0-1359); URINE BILIRUBIN NEGATIVE (NEGATIVE); URINE COLOR YELLOW; URINE GLUCOSE (UA) 3+ (NEGATIVE); URINE KETONE NEGATIVE (NEGATIVE); URINE LEUK ESTERASE 2+ (NEGATIVE); URINE NITRITE POSITIVE (NEGATIVE); URINE PROTEIN NEGATIVE (NEGATIVE); URINE RBC 8 /uL (0-23.9); URINE UROBILINOGEN 0.2 mg/dL (0.2-1.0); URINE WBC 376 /uL (0-25.8)
[2022-12-12] MEDS ORDERED: CEFTRIAXONE 1,000 MG in DEXTROSE 5%-WATER - 50 ML IVPB ONE (13:12)
[2022-12-12] MEDS ORDERED: CEFTRIAXONE 1 GM/50 ML BAG ONE (13:20)
[2022-12-12] MEDS ORDERED: SODIUM CHLORIDE 1,000 ML IV SCH (14:15)
[2022-12-12] MEDS ORDERED: ACETAMINOPHEN 325 MG TABLET (FP) ONE (14:36)
[2022-12-12] MEDS: ACETAMINOPHEN 325 MG TABLET (FP) PO SCH ×2 (14:40→20:38)
[2022-12-12 16:54] VITALS: BMI 26.1
[2022-12-12] MEDS ORDERED: INSULIN (NOVOLOG) ASPART 100 UNITS/ML 10ML VIAL ONE (18:28)
[2022-12-12] MEDS: INSULIN SLIDING SCALE (NOVOLOG) 1 VIAL SQ SCH (18:32)
[2022-12-12] MEDS: ATORVASTATIN CA 40 MG TABLET (FP) PO SCH (22:40)
[2022-12-12] MEDS: INSULIN (LEVEMIR) 100 UNITS/ML UNITS SQ SCH (22:40)
[2022-12-12] MEDS: RIVAROXABAN 2.5 MG TABLET PO SCH (22:40)
[2022-12-13] MEDS: ACETAMINOPHEN 325 MG TABLET (FP) PO SCH ×4 (01:50→20:25)
[2022-12-13] MEDS: INSULIN SLIDING SCALE (NOVOLOG) 1 VIAL SQ SCH ×3 (06:12→16:36)
[2022-12-13] MEDS: CLOPIDOGREL BISULFATE 75 MG TABLET (FP) PO SCH (09:08)
[2022-12-13] MEDS: FINASTERIDE 5 MG TABLET (FP) PO SCH (09:08)
[2022-12-13] MEDS: RIVAROXABAN 2.5 MG TABLET PO SCH ×2 (09:08→21:55)
[2022-12-13] MEDS: LISINOPRIL 10 MG TABLET PO SCH (09:08)
[2022-12-13] MEDS: TAMSULOSIN HCL 0.4 MG CAP PO SCH (09:08)
[2022-12-13] MEDS: CEFTRIAXONE 1 GM in DEXTROSE 5%-WATER - 50 ML IVPB SCH (09:09)
[2022-12-13 09:44] LABS: BASO % 0.1 % (0-2.0); EOS % 0.8 % (0-4.5); HEMATOCRIT 34.2 % (35.4-49); HEMOGLOBIN 11.8 GM/dL (11.7-16.9); LYMPH % 13.9 % (8-40); MCH 35.5 pg (25.7-33.7); MCHC 34.5 g/dl (32.0-35.9); MEAN CELL VOLUME 103.2 fl (80-96); MEAN PLT VOLUME 9.7 fl (7.5-11.1); MONO % 11.4 % (3.8-10.2); NEUT % 73.8 % (42.8-82.8); PLATELET COUNT 143 10^3/uL (134-434); RBC 3.32 M/mm3 (4.00-5.60); RDW 12.6 % (11.9-15.9); WHITE BLOOD COUNT 10.3 K/mm3 (4.0-10.0)
[2022-12-13 11:23] LABS: POTASSIUM 4.7 mmol/L (3.5-5.1)
[2022-12-13 11:40] LABS: BLOOD UREA NITROGEN 28.5 mg/dL (7-18); CALCIUM 9.1 mg/dL (8.5-10.1)
[2022-12-13 11:43] LABS: CREATININE 1.6 mg/dL (0.55-1.3)
[2022-12-13] MEDS ORDERED: MECLIZINE HCL 12.5 MG TABLET PO PRN (16:56)
[2022-12-13] MEDS ORDERED: MECLIZINE HCL 25 MG TABLET (FP) PO PRN (16:57)
[2022-12-13] MEDS: ATORVASTATIN CA 40 MG TABLET (FP) PO SCH (21:51)
[2022-12-13] MEDS: DOCUSATE SODIUM 100 MG CAPSULE (FP) PO SCH (21:52)
[2022-12-13] MEDS: INSULIN (LEVEMIR) 100 UNITS/ML UNITS SQ SCH (21:58)
[2022-12-14] MEDS ORDERED: FAMOTIDINE 10 MG TABLET PO ONE (00:16)
[2022-12-14] MEDS ORDERED: MAG HYDROX/AL HYDROX/SIMETH 30 ML UNIT-DOSE CUP PO PRN (00:18)
[2022-12-14] MEDS: ACETAMINOPHEN 325 MG TABLET (FP) PO SCH ×2 (02:23→09:07)
[2022-12-14] MEDS ORDERED: ONDANSETRON 4 MG/2 ML VIAL IVPUSH PRN (04:40)
[2022-12-14] MEDS: DOCUSATE SODIUM 100 MG CAPSULE (FP) PO SCH ×3 (06:27→22:35)
[2022-12-14] MEDS: INSULIN SLIDING SCALE (NOVOLOG) 1 VIAL SQ SCH ×3 (06:28→17:19)
[2022-12-14 08:56] LABS: BASO % 0.1 % (0-2.0); EOS % 0.2 % (0-4.5); HEMOGLOBIN 13.3 GM/dL (11.7-16.9); LYMPH % 8.7 % (8-40); MCH 35.1 pg (25.7-33.7); MEAN CELL VOLUME 103.1 fl (80-96); MEAN PLT VOLUME 9.7 fl (7.5-11.1); MONO % 8.3 % (3.8-10.2); NEUT % 82.7 % (42.8-82.8); PLATELET COUNT 170 10^3/uL (134-434); RBC 3.79 M/mm3 (4.00-5.60); RDW 12.5 % (11.9-15.9)
[2022-12-14] MEDS: FINASTERIDE 5 MG TABLET (FP) PO SCH (09:07)
[2022-12-14] MEDS: TAMSULOSIN HCL 0.4 MG CAP PO SCH (09:07)
[2022-12-14] MEDS: LISINOPRIL 10 MG TABLET PO SCH (09:07)
[2022-12-14] MEDS: CLOPIDOGREL BISULFATE 75 MG TABLET (FP) PO SCH (09:07)
[2022-12-14] MEDS: CEFTRIAXONE 1 GM in DEXTROSE 5%-WATER - 50 ML IVPB SCH (09:08)
[2022-12-14] MEDS: FAMOTIDINE 10 MG TABLET PO SCH (09:08)
[2022-12-14] MEDS: RIVAROXABAN 2.5 MG TABLET PO SCH ×2 (09:08→22:56)
[2022-12-14 09:21] LABS: CALCIUM 9.5 mg/dL (8.5-10.1)
[2022-12-14 09:22] LABS: ALBUMIN 3.8 g/dl (3.4-5.0); BLOOD UREA NITROGEN 23.9 mg/dL (7-18); MAGNESIUM 2.1 mg/dL (1.8-2.4)
[2022-12-14 09:25] LABS: CREATININE 1.4 mg/dL (0.55-1.3)
[2022-12-14 09:26] LABS: BILIRUBIN,TOTAL 0.7 mg/dL (0.2-1)
[2022-12-14 09:27] LABS: TOT PROT 7.8 g/dl (6.4-8.2)
[2022-12-14 10:17] VITALS: RESP 20
[2022-12-14] MEDS ORDERED: ACETAMINOPHEN 325 MG TABLET (FP) PO PRN (11:40)
[2022-12-14] MEDS ORDERED: INSULIN (NOVOLOG) ASPART 100 UNITS/ML 10ML VIAL ONE ×2 (11:44→21:46)
[2022-12-14] MEDS: MEROPENEM 1 GM in DEXTROSE 5%-WATER 100 ML IVPB SCH ×2 (14:13→22:35)
[2022-12-14] MEDS: MECLIZINE HCL 25 MG TABLET (FP) PO SCH ×2 (14:13→22:34)
[2022-12-14] MEDS ORDERED: MEROPENEM 1 GM in DEXTROSE 5%-WATER 100 ML IVPB SCH (18:00)
[2022-12-14] MEDS: ATORVASTATIN CA 40 MG TABLET (FP) PO SCH (22:35)
[2022-12-14] MEDS: INSULIN (LEVEMIR) 100 UNITS/ML UNITS SQ SCH (22:35)
[2022-12-15] MEDS ORDERED: INSULIN (NOVOLOG) ASPART 100 UNITS/ML 10ML VIAL ONE ×2 (05:07→12:35)
[2022-12-15] MEDS: DOCUSATE SODIUM 100 MG CAPSULE (FP) PO SCH ×3 (06:18→22:42)
[2022-12-15] MEDS: MECLIZINE HCL 25 MG TABLET (FP) PO SCH ×3 (06:18→22:41)
[2022-12-15] MEDS: INSULIN SLIDING SCALE (NOVOLOG) 1 VIAL SQ SCH ×3 (06:19→17:41)
[2022-12-15 08:13] LABS: BASO % 0.2 % (0-2.0); EOS % 1.8 % (0-4.5); HEMATOCRIT 36.3 % (35.4-49); HEMOGLOBIN 12.5 GM/dL (11.7-16.9); LYMPH % 25.5 % (8-40); MCHC 34.4 g/dl (32.0-35.9); MEAN CELL VOLUME 101.7 fl (80-96); MEAN PLT VOLUME 9.9 fl (7.5-11.1); MONO % 16.2 % (3.8-10.2); NEUT % 56.3 % (42.8-82.8); PLATELET COUNT 173 10^3/uL (134-434); RBC 3.57 M/mm3 (4.00-5.60); RDW 12.5 % (11.9-15.9); WHITE BLOOD COUNT 5.9 K/mm3 (4.0-10.0)
[2022-12-15 08:40] LABS: POTASSIUM 4.6 mmol/L (3.5-5.1)
[2022-12-15 08:41] LABS: CALCIUM 9.6 mg/dL (8.5-10.1)
[2022-12-15 08:42] LABS: ALBUMIN 3.4 g/dl (3.4-5.0); BLOOD UREA NITROGEN 22.1 mg/dL (7-18); MAGNESIUM 2.1 mg/dL (1.8-2.4)
[2022-12-15 08:45] LABS: CREATININE 1.4 mg/dL (0.55-1.3)
[2022-12-15 08:46] LABS: TOT PROT 7.1 g/dl (6.4-8.2)
[2022-12-15 08:47] LABS: BILIRUBIN,TOTAL 0.6 mg/dL (0.2-1)
[2022-12-15] MEDS: FINASTERIDE 5 MG TABLET (FP) PO SCH (09:25)
[2022-12-15] MEDS: CLOPIDOGREL BISULFATE 75 MG TABLET (FP) PO SCH (09:25)
[2022-12-15] MEDS: TAMSULOSIN HCL 0.4 MG CAP PO SCH (09:25)
[2022-12-15] MEDS: MEROPENEM 1 GM in DEXTROSE 5%-WATER 100 ML IVPB SCH ×2 (09:25→22:43)
[2022-12-15] MEDS: FAMOTIDINE 10 MG TABLET PO SCH (09:25)
[2022-12-15] MEDS: LISINOPRIL 10 MG TABLET PO SCH (09:25)
[2022-12-15] MEDS: RIVAROXABAN 2.5 MG TABLET PO SCH ×2 (09:26→22:43)
[2022-12-15] MEDS: ATORVASTATIN CA 40 MG TABLET (FP) PO SCH (22:42)
[2022-12-15] MEDS: INSULIN (LEVEMIR) 100 UNITS/ML UNITS SQ SCH (23:13)
[2022-12-16] MEDS: MECLIZINE HCL 25 MG TABLET (FP) PO SCH ×2 (06:48→15:00)
[2022-12-16] MEDS: DOCUSATE SODIUM 100 MG CAPSULE (FP) PO SCH ×2 (06:49→15:00)
[2022-12-16] MEDS: INSULIN SLIDING SCALE (NOVOLOG) 1 VIAL SQ SCH ×2 (07:05→14:59)
[2022-12-16 07:27] VITALS: PULSE 75
[2022-12-16 07:46] LABS: BASO % 0.2 % (0-2.0); HEMATOCRIT 35.3 % (35.4-49); HEMOGLOBIN 12.2 GM/dL (11.7-16.9); LYMPH % 24.8 % (8-40); MCH 35.5 pg (25.7-33.7); MCHC 34.7 g/dl (32.0-35.9); MEAN CELL VOLUME 102.4 fl (80-96); MEAN PLT VOLUME 9.7 fl (7.5-11.1); MONO % 17.4 % (3.8-10.2); NEUT % 55.6 % (42.8-82.8); PLATELET COUNT 177 10^3/uL (134-434); RBC 3.45 M/mm3 (4.00-5.60); RDW 12.6 % (11.9-15.9); WHITE BLOOD COUNT 6.5 K/mm3 (4.0-10.0)
[2022-12-16 07:53] LABS: POTASSIUM 4.7 mmol/L (3.5-5.1)
[2022-12-16 07:58] LABS: ALBUMIN 3.2 g/dl (3.4-5.0); CALCIUM 9.3 mg/dL (8.5-10.1)
[2022-12-16 07:59] LABS: BLOOD UREA NITROGEN 27.8 mg/dL (7-18)
[2022-12-16 08:00] LABS: CREATININE 1.4 mg/dL (0.55-1.3)
[2022-12-16 08:02] LABS: BILIRUBIN,TOTAL 0.5 mg/dL (0.2-1); TOT PROT 6.8 g/dl (6.4-8.2)
[2022-12-16] MEDS: MEROPENEM 1 GM in DEXTROSE 5%-WATER 100 ML IVPB SCH (09:25)
[2022-12-16] MEDS: LISINOPRIL 10 MG TABLET PO SCH (09:25)
[2022-12-16] MEDS: FINASTERIDE 5 MG TABLET (FP) PO SCH (09:25)
[2022-12-16] MEDS: CLOPIDOGREL BISULFATE 75 MG TABLET (FP) PO SCH (09:25)
[2022-12-16] MEDS: FAMOTIDINE 10 MG TABLET PO SCH (09:25)
[2022-12-16] MEDS: TAMSULOSIN HCL 0.4 MG CAP PO SCH (09:25)
[2022-12-16] MEDS: RIVAROXABAN 2.5 MG TABLET PO SCH (09:25)
[2022-12-16 14:57] VITALS: BP 120/65; TEMP 98.1
[2022-12-17] MEDS ORDERED: ERTAPENEM SODIUM 1 GM in SODIUM CHLORIDE 50 ML IVPB SCH (10:00)
== END 2022-12-16 15:00 | disposition home or self-care (01) | DRG 683 ==
LOC: JER 09:52 → JERBED 13:34 → J8W 16:16
PROVIDERS: ADMIT Internal Medicine; ATTEND Nurse Practitioner Acute Care
DX: N17.9 Acute kidney failure, unspecified (principal); N39.0 Urinary tract infection, site not specified; N40.0 Benign prostatic hyperplasia without lower urinary tract symptoms; N12 Tubulo-interstitial nephritis, not specified as acute or chronic; E11.51 Type 2 diabetes mellitus with diabetic peripheral angiopathy without gangrene; I10 Essential (primary) hypertension; E78.5 Hyperlipidemia, unspecified; I25.10 Atherosclerotic heart disease of native coronary artery without angina pectoris
CPT/HCPCS: 0241U-QW; 36415; 71045-TC-FY; 76775-TC; 80048; 80053; 81003; 82962; 83735; 84484; 85025; 85610; 85730; 87040; 87086; 87186; 93005; 93010; 97116-GP; 97161-GP; 99285-25

== ENCOUNTER 2022-12-17 10:45 | Day surgery (SDC) | payer OTHER ==
[2022-12-17] MEDS ORDERED: ERTAPENEM SODIUM 1 GM in SODIUM CHLORIDE 50 ML IVPB ONE (11:00)
[2022-12-17 11:01] VITALS: BP 120/65; TEMP 98.2
[2022-12-17 12:02] VITALS: PULSE 71; RESP 18
== END 2022-12-17 12:03 | disposition home or self-care (01) ==
LOC: FINFUSION 10:45 → FM/S 10:45 → FINFUSION 12:03
PROVIDERS: ATTEND Internal Medicine Infectious Disease
DX: N39.0 Urinary tract infection, site not specified (principal)
CPT/HCPCS: 96365

== ENCOUNTER 2022-12-18 10:29 | Day surgery (SDC) | payer OTHER ==
[2022-12-18] MEDS ORDERED: ERTAPENEM SODIUM 1 GM/50 ML PRE-DOCKED IVPB SCH (10:45)
[2022-12-18 12:13] VITALS: BP 109/50; PULSE 80; RESP 18; TEMP 99.3
== END 2022-12-18 12:13 | disposition home or self-care (01) ==
LOC: FM/S 10:29 → FINFUSION 10:29
PROVIDERS: ATTEND Internal Medicine Infectious Disease
DX: N39.0 Urinary tract infection, site not specified (principal)
CPT/HCPCS: 96365

== ENCOUNTER 2022-12-19 11:04 | Day surgery (SDC) | payer OTHER ==
[2022-12-19] MEDS ORDERED: ERTAPENEM SODIUM 1 GM in SODIUM CHLORIDE 50 ML IVPB ONE (11:45)
[2022-12-19 12:27] VITALS: BP 112/54; PULSE 66; RESP 15; TEMP 97.8
== END 2022-12-19 12:32 | disposition home or self-care (01) ==
LOC: FINFUSION 11:04 → FM/S 11:11 → FINFUSION 12:32
PROVIDERS: ATTEND Internal Medicine Infectious Disease
DX: N39.0 Urinary tract infection, site not specified (principal)
CPT/HCPCS: 96365

== ENCOUNTER 2022-12-20 10:50 | Day surgery (SDC) | payer OTHER ==
[2022-12-20] MEDS ORDERED: ERTAPENEM SODIUM 1 GM in DEXTROSE 5%-WATER - 50 ML IVPB ONE (11:30)
[2022-12-20 12:44] VITALS: BP 125/61; PULSE 73; RESP 18; TEMP 97.9
== END 2022-12-20 12:44 | disposition home or self-care (01) ==
LOC: FINFUSION 10:50 → FM/S 10:51 → FINFUSION 12:44
PROVIDERS: ATTEND Internal Medicine Infectious Disease
DX: N39.0 Urinary tract infection, site not specified (principal)
CPT/HCPCS: 96365

== ENCOUNTER 2022-12-21 10:15 | Day surgery (SDC) | payer OTHER ==
[2022-12-21] MEDS ORDERED: ERTAPENEM SODIUM 1 GM in SODIUM CHLORIDE 50 ML IVPB ONE (10:30)
[2022-12-21 11:31] VITALS: BP 132/63; PULSE 64; RESP 19; TEMP 97.8
== END 2022-12-21 11:31 | disposition home or self-care (01) ==
LOC: FINFUSION 10:15 → FM/S 10:16 → FINFUSION 11:31
PROVIDERS: ATTEND Internal Medicine Infectious Disease
DX: N39.0 Urinary tract infection, site not specified (principal)
CPT/HCPCS: 96365

== ENCOUNTER 2022-12-22 10:42 | Day surgery (SDC) | payer OTHER ==
[2022-12-22] MEDS ORDERED: ERTAPENEM SODIUM 1 GM in SODIUM CHLORIDE 50 ML IVPB ONE (11:00)
[2022-12-22 12:00] VITALS: BP 139/61; PULSE 69; RESP 19
== END 2022-12-22 12:00 | disposition home or self-care (01) ==
LOC: FINFUSION 10:42 → FM/S 10:42 → FINFUSION 12:00
PROVIDERS: ATTEND Internal Medicine Infectious Disease
DX: N39.0 Urinary tract infection, site not specified (principal)
CPT/HCPCS: 96365

== ENCOUNTER 2022-12-23 10:45 | Day surgery (SDC) | payer OTHER ==
[2022-12-23] MEDS ORDERED: ERTAPENEM SODIUM 1 GM in SODIUM CHLORIDE 50 ML IVPB ONE (11:30)
[2022-12-23 12:24] VITALS: BP 128/60; PULSE 70; RESP 18; TEMP 97.9
== END 2022-12-23 12:41 | disposition home or self-care (01) ==
LOC: FINFUSION 10:45 → FM/S 10:46 → FINFUSION 12:41
PROVIDERS: ATTEND Internal Medicine Infectious Disease
DX: N39.0 Urinary tract infection, site not specified (principal)
CPT/HCPCS: 96365

== ENCOUNTER 2023-01-17 16:08 | Inpatient (IN) | payer OTHER ==
[2023-01-17 17:21] LABS: BASO % 0.2 % (0-2.0); EOS % 2.2 % (0-4.5); HEMATOCRIT 29.9 % (35.4-49); LYMPH % 19.5 % (8-40); MCH 33.2 pg (25.7-33.7); MCHC 33.3 g/dl (32.0-35.9); MEAN CELL VOLUME 99.7 fl (80-96); MEAN PLT VOLUME 8.6 fl (7.5-11.1); MONO % 11.1 % (3.8-10.2); PLATELET COUNT 241 10^3/uL (134-434); RDW 14.1 % (11.9-15.9); WHITE BLOOD COUNT 7.3 K/mm3 (4.0-10.0)
[2023-01-17 17:50] LABS: POTASSIUM 5.1 mmol/L (3.5-5.1)
[2023-01-17 17:52] LABS: ALBUMIN 3.2 g/dl (3.4-5.0); BLOOD UREA NITROGEN 35.6 mg/dL (7-18); CALCIUM 9.4 mg/dL (8.5-10.1)
[2023-01-17] MEDS ORDERED: SODIUM CHLORIDE 0.9% 500 ML INFUS.BAG IV ONE (17:56)
[2023-01-17 17:57] LABS: BILIRUBIN,TOTAL 0.5 mg/dL (0.2-1)
[2023-01-17 18:45] LABS: EPI CELLS 14 /uL (0-25.1); HYALINE CASTS 0 /uL (0-3.1); URINE APPEARANCE CLOUDY; URINE BACTERIA 7434 /uL (0-1359); URINE BILIRUBIN NEGATIVE (NEGATIVE); URINE COLOR YELLOW; URINE GLUCOSE (UA) 3+ (NEGATIVE); URINE KETONE NEGATIVE (NEGATIVE); URINE LEUK ESTERASE 2+ (NEGATIVE); URINE NITRITE NEGATIVE (NEGATIVE); URINE PROTEIN NEGATIVE (NEGATIVE); URINE WBC 2126 /uL (0-25.8)
[2023-01-17] MEDS ORDERED: ERTAPENEM SODIUM 1 GM in SODIUM CHLORIDE 50 ML IVPB ONE (18:47)
[2023-01-17] MEDS ORDERED: ERTAPENEM SODIUM 1 GM VIAL ONE (19:01)
[2023-01-17] MEDS ORDERED: SODIUM CHLORIDE 1,000 ML IV SCH (20:30)
[2023-01-18 00:41] VITALS: BMI 26.7
[2023-01-18] MEDS ORDERED: MEROPENEM 1 GM in DEXTROSE 5%-WATER 100 ML IVPB SCH (07:00)
[2023-01-18 08:19] LABS: HEMATOCRIT 31.1 % (35.4-49); HEMOGLOBIN 10.4 GM/dL (11.7-16.9); MCH 33.3 pg (25.7-33.7); MCHC 33.4 g/dl (32.0-35.9); MEAN CELL VOLUME 99.6 fl (80-96); PLATELET COUNT 233 10^3/uL (134-434); RBC 3.12 M/mm3 (4.00-5.60); RDW 14.5 % (11.9-15.9); WHITE BLOOD COUNT 10.8 K/mm3 (4.0-10.0)
[2023-01-18 08:37] LABS: POTASSIUM 4.5 mmol/L (3.5-5.1)
[2023-01-18 08:41] LABS: CALCIUM 9.2 mg/dL (8.5-10.1)
[2023-01-18 08:42] LABS: ALBUMIN 3.1 g/dl (3.4-5.0); BLOOD UREA NITROGEN 29.2 mg/dL (7-18); MAGNESIUM 1.9 mg/dL (1.8-2.4)
[2023-01-18 08:45] LABS: CREATININE 1.7 mg/dL (0.55-1.3); PHOSPHOROUS 3.8 mg/dL (2.5-4.9)
[2023-01-18 08:46] LABS: BILIRUBIN,TOTAL 0.6 mg/dL (0.2-1)
[2023-01-18 08:47] LABS: TOT PROT 6.8 g/dl (6.4-8.2)
[2023-01-18 08:50] LABS: RETICULOCYTES 2.57 % (0.5-1.5)
[2023-01-18] MEDS: FINASTERIDE 5 MG TABLET (FP) PO SCH (09:56)
[2023-01-18] MEDS: TAMSULOSIN HCL 0.4 MG CAP PO SCH (09:56)
[2023-01-18] MEDS: PREGABALIN 100 MG CAPSULE PO SCH ×2 (09:56→21:51)
[2023-01-18] MEDS ORDERED: FLOMAX PO SCH (10:00)
[2023-01-18] MEDS: RIVAROXABAN 2.5 MG TABLET PO SCH ×2 (13:23→21:50)
[2023-01-18] MEDS: EMPAGLIFLOZIN 10 MG PO SCH (15:55)
[2023-01-18] MEDS: MEROPENEM 1 GM in DEXTROSE 5%-WATER 100 ML IVPB SCH (17:34)
[2023-01-18] MEDS: ATORVASTATIN CA 80 MG TABLET (FP) PO SCH (21:50)
[2023-01-18] MEDS: INSULIN (LEVEMIR) 100 UNITS/ML UNITS SQ SCH (21:50)
[2023-01-18] MEDS: DOCUSATE SODIUM 100 MG CAPSULE (FP) PO SCH (21:50)
[2023-01-18] MEDS ORDERED: PATIENT'S OWN MEDICATION (NON-FORMULARY) (Insulin Glargine,Hum.Rec.Anlog 100 UNITS/ML Ins) SQ SCH (22:00)
[2023-01-18 23:01] VITALS: RESP 18
[2023-01-19] MEDS: MEROPENEM 1 GM in DEXTROSE 5%-WATER 100 ML IVPB SCH ×3 (01:11→18:20)
[2023-01-19 07:54] LABS: BASO % 0.1 % (0-2.0); EOS % 2.6 % (0-4.5); HEMATOCRIT 30.8 % (35.4-49); HEMOGLOBIN 10.2 GM/dL (11.7-16.9); LYMPH % 14.9 % (8-40); MCH 33.1 pg (25.7-33.7); MCHC 33.2 g/dl (32.0-35.9); MEAN CELL VOLUME 99.9 fl (80-96); MEAN PLT VOLUME 8.9 fl (7.5-11.1); MONO % 13.2 % (3.8-10.2); NEUT % 69.2 % (42.8-82.8); PLATELET COUNT 238 10^3/uL (134-434); RBC 3.08 M/mm3 (4.00-5.60); RDW 14.1 % (11.9-15.9)
[2023-01-19 09:06] LABS: BILIRUBIN,TOTAL 0.6 mg/dL (0.2-1); CREATININE 1.6 mg/dL (0.55-1.3); MAGNESIUM 2.2 mg/dL (1.8-2.4); POTASSIUM 4.8 mmol/L (3.5-5.1); TOT PROT 6.6 g/dl (6.4-8.2)
[2023-01-19] MEDS: PREGABALIN 100 MG CAPSULE PO SCH ×2 (10:51→21:42)
[2023-01-19] MEDS: EMPAGLIFLOZIN 10 MG PO SCH (10:51)
[2023-01-19] MEDS: DOCUSATE SODIUM 100 MG CAPSULE (FP) PO SCH ×2 (10:51→21:42)
[2023-01-19] MEDS: RIVAROXABAN 2.5 MG TABLET PO SCH ×2 (10:51→21:42)
[2023-01-19] MEDS: TAMSULOSIN HCL 0.4 MG CAP PO SCH (10:51)
[2023-01-19] MEDS: FINASTERIDE 5 MG TABLET (FP) PO SCH (10:51)
[2023-01-19] MEDS: INSULIN (LEVEMIR) 100 UNITS/ML UNITS SQ SCH (21:42)
[2023-01-19] MEDS: ATORVASTATIN CA 80 MG TABLET (FP) PO SCH (21:42)
[2023-01-20] MEDS: MEROPENEM 1 GM in DEXTROSE 5%-WATER 100 ML IVPB SCH ×3 (02:40→17:31)
[2023-01-20] MEDS: DOCUSATE SODIUM 100 MG CAPSULE (FP) PO SCH ×2 (09:53→21:59)
[2023-01-20] MEDS: FINASTERIDE 5 MG TABLET (FP) PO SCH (09:53)
[2023-01-20 10:05] LABS: BASO % 0.3 % (0-2.0); EOS % 1.9 % (0-4.5); HEMATOCRIT 35.5 % (35.4-49); HEMOGLOBIN 11.3 GM/dL (11.7-16.9); MCH 32.5 pg (25.7-33.7); MCHC 31.9 g/dl (32.0-35.9); MEAN CELL VOLUME 101.9 fl (80-96); MEAN PLT VOLUME 9.7 fl (7.5-11.1); MONO % 10.5 % (3.8-10.2); NEUT % 70.3 % (42.8-82.8); PLATELET COUNT 286 10^3/uL (134-434); RBC 3.48 M/mm3 (4.00-5.60); RDW 14.2 % (11.9-15.9); WHITE BLOOD COUNT 6.1 K/mm3 (4.0-10.0)
[2023-01-20 10:27] LABS: POTASSIUM 4.8 mmol/L (3.5-5.1)
[2023-01-20 10:34] LABS: ALBUMIN 3.4 g/dl (3.4-5.0); CALCIUM 9.6 mg/dL (8.5-10.1); MAGNESIUM 2.5 mg/dL (1.8-2.4)
[2023-01-20] MEDS: PREGABALIN 100 MG CAPSULE PO SCH ×2 (10:36→21:59)
[2023-01-20] MEDS: TAMSULOSIN HCL 0.4 MG CAP PO SCH (10:36)
[2023-01-20 10:37] LABS: CREATININE 1.5 mg/dL (0.55-1.3)
[2023-01-20 10:38] LABS: BILIRUBIN,TOTAL 0.6 mg/dL (0.2-1)
[2023-01-20 10:39] LABS: TOT PROT 7.6 g/dl (6.4-8.2)
[2023-01-20] MEDS: RIVAROXABAN 2.5 MG TABLET PO SCH ×2 (10:45→21:59)
[2023-01-20] MEDS: EMPAGLIFLOZIN 10 MG PO SCH (11:00)
[2023-01-20 14:33] LABS: PH,URINE 6.5 (5.0-8.0); URINE APPEARANCE CLEAR; URINE BILIRUBIN NEGATIVE (NEGATIVE); URINE COLOR YELLOW; URINE GLUCOSE (UA) 3+ (NEGATIVE); URINE KETONE NEGATIVE (NEGATIVE); URINE LEUK ESTERASE NEGATIVE (NEGATIVE); URINE NITRITE NEGATIVE (NEGATIVE); URINE PROTEIN NEGATIVE (NEGATIVE); URINE UROBILINOGEN 0.2 mg/dL (0.2-1.0)
[2023-01-20] MEDS ORDERED: MEROPENEM 1 GM VIAL (RESTRICTED TO ID) IVPB ONE (16:26)
[2023-01-20] MEDS: ATORVASTATIN CA 80 MG TABLET (FP) PO SCH (21:59)
[2023-01-20] MEDS: INSULIN (LEVEMIR) 100 UNITS/ML UNITS SQ SCH (21:59)
[2023-01-21] MEDS: MEROPENEM 1 GM in DEXTROSE 5%-WATER 100 ML IVPB SCH ×3 (01:31→17:07)
[2023-01-21 09:30] LABS: BASO % 0.1 % (0-2.0); EOS % 2.3 % (0-4.5); HEMATOCRIT 34.8 % (35.4-49); HEMOGLOBIN 11.1 GM/dL (11.7-16.9); LYMPH % 21.2 % (8-40); MCH 32.5 pg (25.7-33.7); MCHC 31.8 g/dl (32.0-35.9); MEAN CELL VOLUME 101.9 fl (80-96); MEAN PLT VOLUME 9.1 fl (7.5-11.1); MONO % 11.7 % (3.8-10.2); NEUT % 64.7 % (42.8-82.8); PLATELET COUNT 266 10^3/uL (134-434); RBC 3.42 M/mm3 (4.00-5.60); RDW 14.2 % (11.9-15.9); WHITE BLOOD COUNT 5.9 K/mm3 (4.0-10.0)
[2023-01-21] MEDS: FINASTERIDE 5 MG TABLET (FP) PO SCH (10:25)
[2023-01-21] MEDS: DOCUSATE SODIUM 100 MG CAPSULE (FP) PO SCH (10:25)
[2023-01-21] MEDS: TAMSULOSIN HCL 0.4 MG CAP PO SCH (10:25)
[2023-01-21] MEDS: EMPAGLIFLOZIN 10 MG PO SCH (10:26)
[2023-01-21] MEDS: PREGABALIN 100 MG CAPSULE PO SCH (10:26)
[2023-01-21 10:27] LABS: ALBUMIN 3.4 g/dl (3.4-5.0); BILIRUBIN,TOTAL 0.6 mg/dL (0.2-1); BLOOD UREA NITROGEN 30.8 mg/dL (7-18); CALCIUM 9.2 mg/dL (8.5-10.1); CREATININE 1.5 mg/dL (0.55-1.3); MAGNESIUM 2.2 mg/dL (1.8-2.4); POTASSIUM 4.1 mmol/L (3.5-5.1); TOT PROT 7.2 g/dl (6.4-8.2)
[2023-01-21] MEDS: RIVAROXABAN 2.5 MG TABLET PO SCH (10:27)
[2023-01-21 15:18] VITALS: BP 134/68; PULSE 60; TEMP 98
== END 2023-01-21 19:13 | disposition home health service (06) | DRG 690 ==
LOC: JER 16:08 → JERBED 18:48 → J8W 21:10
PROVIDERS: ADMIT Internal Medicine; ATTEND Nurse Practitioner Family
PROC: 05HM33Z Insertion of Infusion Device into Right Internal Jugular Vein, Percutaneous Approach (ICD-10-PCS; principal; 2023-01-21)
PROC: B543ZZA Ultrasonography of Right Jugular Veins, Guidance (ICD-10-PCS; 2023-01-21)
DX: N39.0 Urinary tract infection, site not specified (principal); N17.9 Acute kidney failure, unspecified; B96.20 Unspecified Escherichia coli [E. coli] as the cause of diseases classified elsewhere; I10 Essential (primary) hypertension; E11.51 Type 2 diabetes mellitus with diabetic peripheral angiopathy without gangrene; N40.0 Benign prostatic hyperplasia without lower urinary tract symptoms; D64.9 Anemia, unspecified; E78.5 Hyperlipidemia, unspecified; I25.10 Atherosclerotic heart disease of native coronary artery without angina pectoris
CPT/HCPCS: 36415; 36558; 71045-TC-FY; 76775-TC; 76856-TC; 77001-TC-FY; 80053; 81003; 82272; 82550; 82728; 82962; 83036; 83540; 83550; 83735; 84100; 85025; 85027; 85045; 87040; 87086; 87186; 87635; 93005; 93010; 99285-25; C1751

== ENCOUNTER 2023-01-22 13:30 | Day surgery (SDC) | payer OTHER ==
[2023-01-22] MEDS ORDERED: ERTAPENEM SODIUM 1 GM in SODIUM CHLORIDE 50 ML IVPB SCH (13:45)
[2023-01-22 14:28] VITALS: RESP 18; TEMP 97.9
[2023-01-22 14:36] VITALS: BP 126/54; PULSE 68
== END 2023-01-22 14:36 | disposition home or self-care (01) ==
LOC: FM/S 13:30 → FINFUSION 13:30
PROVIDERS: ATTEND Internal Medicine Infectious Disease
PROC: 3E0433Z Introduction of Anti-inflammatory into Central Vein, Percutaneous Approach (ICD-10-PCS; principal; 2023-01-22)
DX: N39.0 Urinary tract infection, site not specified (principal)
CPT/HCPCS: 96365

== ENCOUNTER 2023-01-23 13:48 | Day surgery (SDC) | payer OTHER ==
[2023-01-23] MEDS ORDERED: ERTAPENEM SODIUM 1 GM in SODIUM CHLORIDE 50 ML IVPB ONE (14:30)
[2023-01-23 14:52] VITALS: TEMP 97.8
[2023-01-23 15:23] VITALS: BP 126/80; PULSE 85; RESP 17
== END 2023-01-23 15:23 | disposition home or self-care (01) ==
LOC: FINFUSION 13:48 → FM/S 13:57 → FINFUSION 15:23
PROVIDERS: ATTEND Internal Medicine Infectious Disease
DX: N39.0 Urinary tract infection, site not specified (principal)
CPT/HCPCS: 96365

== ENCOUNTER 2023-01-24 13:58 | Day surgery (SDC) | payer OTHER ==
[2023-01-24] MEDS ORDERED: ERTAPENEM SODIUM 1 GM in SODIUM CHLORIDE 50 ML IVPB ONE (14:30)
[2023-01-24 14:58] VITALS: RESP 18; TEMP 98.3
[2023-01-24 15:07] VITALS: BP 121/63; PULSE 70
== END 2023-01-24 15:08 | disposition home or self-care (01) ==
LOC: FINFUSION 13:58 → EDSTATUS 14:05 → FM/S 14:11 → FINFUSION 15:08
PROVIDERS: ATTEND Internal Medicine Infectious Disease
DX: N39.0 Urinary tract infection, site not specified (principal)
CPT/HCPCS: 96365

== ENCOUNTER 2023-01-25 10:52 | Day surgery (SDC) | payer OTHER ==
[2023-01-25] MEDS ORDERED: ERTAPENEM SODIUM 1 GM in SODIUM CHLORIDE 50 ML IVPB ONE (11:15)
[2023-01-25 12:17] VITALS: BP 143/68; PULSE 59; RESP 16; TEMP 98.5
== END 2023-01-25 12:17 | disposition home or self-care (01) ==
LOC: FINFUSION 10:52 → FM/S 10:53 → FINFUSION 12:17
PROVIDERS: ATTEND Internal Medicine Infectious Disease
DX: N39.0 Urinary tract infection, site not specified (principal)
CPT/HCPCS: 96365

== ENCOUNTER 2023-01-26 11:06 | Day surgery (SDC) | payer OTHER ==
[2023-01-26] MEDS ORDERED: ERTAPENEM SODIUM 1 GM in SODIUM CHLORIDE 50 ML IVPB ONE (12:00)
[2023-01-26 13:16] VITALS: BP 137/67; PULSE 65; RESP 16; TEMP 98.6
== END 2023-01-26 13:16 | disposition home or self-care (01) ==
LOC: FINFUSION 11:06 → FM/S 11:07 → FINFUSION 13:16
PROVIDERS: ATTEND Internal Medicine Infectious Disease
DX: N39.0 Urinary tract infection, site not specified (principal)
CPT/HCPCS: 96365

== ENCOUNTER 2023-01-27 10:40 | Day surgery (SDC) | payer OTHER ==
[2023-01-27] MEDS ORDERED: ERTAPENEM SODIUM 1 GM in SODIUM CHLORIDE 50 ML IVPB ONE (11:00)
[2023-01-27 11:04] VITALS: TEMP 98.1
[2023-01-27 11:10] VITALS: BP 117/61; RESP 18
[2023-01-27 12:14] VITALS: PULSE 66
== END 2023-01-27 12:14 | disposition home or self-care (01) ==
LOC: FINFUSION 10:40 → FM/S 10:40 → FINFUSION 12:14
PROVIDERS: ATTEND Internal Medicine Infectious Disease
DX: N39.0 Urinary tract infection, site not specified (principal)
CPT/HCPCS: 96365

== ENCOUNTER 2023-01-28 09:53 | Day surgery (SDC) | payer OTHER ==
[2023-01-28 10:12] VITALS: RESP 18; TEMP 98
[2023-01-28] MEDS ORDERED: ERTAPENEM SODIUM 1 GM in SODIUM CHLORIDE 50 ML IVPB ONE (10:15)
[2023-01-28 10:49] VITALS: BP 148/80; PULSE 86
== END 2023-01-28 10:50 | disposition home or self-care (01) ==
LOC: FINFUSION 09:53 → FM/S 09:56 → FINFUSION 10:50
PROVIDERS: ATTEND Internal Medicine Infectious Disease
DX: N39.0 Urinary tract infection, site not specified (principal)
CPT/HCPCS: 96365

== ENCOUNTER 2023-01-29 08:55 | Day surgery (SDC) | payer OTHER ==
[2023-01-29] MEDS ORDERED: ERTAPENEM SODIUM 1 GM in SODIUM CHLORIDE 50 ML IVPB SCH (10:30)
[2023-01-29 16:27] VITALS: BP 137/66; PULSE 60; RESP 18; TEMP 97.6
== END 2023-01-29 11:30 | disposition home or self-care (01) ==
LOC: FINFUSION 08:55 → FM/S 08:57 → FINFUSION 11:30
PROVIDERS: ATTEND Internal Medicine Infectious Disease
DX: N39.0 Urinary tract infection, site not specified (principal)
CPT/HCPCS: 96365; 96367

== ENCOUNTER 2023-01-30 11:37 | Day surgery (SDC) | payer OTHER ==
[2023-01-30] MEDS ORDERED: ERTAPENEM SODIUM 1 GM in SODIUM CHLORIDE 100 ML IVPB ONE (12:00)
[2023-01-30 12:03] VITALS: RESP 18; TEMP 97.7
[2023-01-30 13:02] VITALS: BP 106/62; PULSE 68
== END 2023-01-30 12:50 | disposition home or self-care (01) ==
LOC: FINFUSION 11:37 → FM/S 11:43 → FINFUSION 12:50
PROVIDERS: ATTEND Internal Medicine Infectious Disease
DX: N39.0 Urinary tract infection, site not specified (principal)
CPT/HCPCS: 96365

== ENCOUNTER 2023-01-31 11:16 | Day surgery (SDC) | payer OTHER ==
[2023-01-31] MEDS ORDERED: ERTAPENEM SODIUM 1 GM in SODIUM CHLORIDE 50 ML IVPB ONE (12:00)
[2023-01-31 12:39] VITALS: BP 107/52; PULSE 66; RESP 16; TEMP 97.8
== END 2023-01-31 12:39 | disposition home or self-care (01) ==
LOC: FINFUSION 11:16 → FM/S 11:17 → FINFUSION 12:39
PROVIDERS: ATTEND Internal Medicine Infectious Disease
DX: N39.0 Urinary tract infection, site not specified (principal); Z16.12 Extended spectrum beta lactamase (ESBL) resistance
CPT/HCPCS: 96365

== ENCOUNTER 2023-02-01 11:24 | Day surgery (SDC) | payer OTHER ==
[2023-02-01] MEDS ORDERED: ERTAPENEM SODIUM 1 GM in SODIUM CHLORIDE 50 ML IVPB ONE (11:45)
[2023-02-01 12:19] VITALS: BP 126/70; PULSE 69; RESP 16; TEMP 98.1
== END 2023-02-01 12:20 | disposition home or self-care (01) ==
LOC: FINFUSION 11:24 → FM/S 11:25 → FINFUSION 12:20
PROVIDERS: ATTEND Internal Medicine Infectious Disease
DX: N39.0 Urinary tract infection, site not specified (principal); Z16.12 Extended spectrum beta lactamase (ESBL) resistance
CPT/HCPCS: 96365

== ENCOUNTER 2023-02-02 10:00 | Day surgery (SDC) | payer OTHER ==
[2023-02-02] MEDS ORDERED: ERTAPENEM SODIUM 1 GM in SODIUM CHLORIDE 50 ML IVPB ONE (10:45)
[2023-02-02 12:19] VITALS: BP 127/64; PULSE 67; RESP 18; TEMP 97.8
== END 2023-02-02 11:40 | disposition home or self-care (01) ==
LOC: FINFUSION 10:00 → FM/S 10:32 → FINFUSION 11:40
PROVIDERS: ATTEND Internal Medicine Infectious Disease
DX: N39.0 Urinary tract infection, site not specified (principal); Z16.12 Extended spectrum beta lactamase (ESBL) resistance
CPT/HCPCS: 96365

== ENCOUNTER → 2023-02-03 | Day surgery (SDC) | payer OTHER | END | disposition home or self-care (01) | LOC: JRADIR 08:21 | PROVIDERS: ATTEND Internal Medicine Infectious Disease | PROC: 02PY03Z Removal of Infusion Device from Great Vessel, Open Approach (ICD-10-PCS; principal; 2023-02-03) | DX: Z45.2 Encounter for adjustment and management of vascular access device (principal) | CPT/HCPCS: 36589 ==

== ENCOUNTER 2023-02-07 04:41 | Day surgery (SDC) | payer OTHER ==
[2023-02-03 13:56] VITALS: BMI 25.7
[2023-02-07 10:49] VITALS: BP 138/78; PULSE 67; RESP 20; TEMP 100
== END 2023-02-07 10:56 | disposition home or self-care (01) ==
LOC: JASU-ENDO 04:41
PROVIDERS: ATTEND Internal Medicine Gastroenterology
PROC: 0DB28ZX Excision of Middle Esophagus, Via Natural or Artificial Opening Endoscopic, Diagnostic (ICD-10-PCS; 2023-02-07)
PROC: 0DB78ZX Excision of Stomach, Pylorus, Via Natural or Artificial Opening Endoscopic, Diagnostic (ICD-10-PCS; 2023-02-07)
PROC: 0DB68ZX Excision of Stomach, Via Natural or Artificial Opening Endoscopic, Diagnostic (ICD-10-PCS; 2023-02-07)
PROC: 0DBM8ZX Excision of Descending Colon, Via Natural or Artificial Opening Endoscopic, Diagnostic (ICD-10-PCS; principal; 2023-02-07 08:45)
DX: Z12.11 Encounter for screening for malignant neoplasm of colon (principal); K51.40 Inflammatory polyps of colon without complications; K63.5 Polyp of colon; K57.30 Diverticulosis of large intestine without perforation or abscess without bleeding; B37.81 Candidal esophagitis; K44.9 Diaphragmatic hernia without obstruction or gangrene; K29.50 Unspecified chronic gastritis without bleeding; I10 Essential (primary) hypertension; E11.9 Type 2 diabetes mellitus without complications; Z86.010 Personal history of colon polyps
CPT/HCPCS: 82962; 88305-TC; 88312-TC; 88342-TC

== ENCOUNTER → 2023-05-27 | Day surgery (SDC) | payer OTHER ==
[2023-05-25 15:49] VITALS: BMI 27.3
[~2023-05-27] MED LIST changes: +ACETAMINOPHEN 500 MG TABLET (FP) PO PRN; +BUPIVACAINE HCL/PF 0.75% 10 ML VIAL CAUD ONE; -ERTAPENEM SODIUM 1 GM in SODIUM CHLORIDE 100 ML IVPB ONE; +LIDOCAINE HCL 1% PRESERVATIVE FREE - 30ML VIAL INF ONE
[2023-05-27 09:52] VITALS: BP 120/80; PULSE 72; RESP 20; TEMP 97
== END | disposition home or self-care (01) ==
LOC: JASU-SURG 04:30
PROVIDERS: ATTEND Pain Medicine Pain Medicine
DX: Z53.8 Procedure and treatment not carried out for other reasons (principal)

== ENCOUNTER 2023-06-17 04:57 | Day surgery (SDC) | payer OTHER ==
[2023-06-15 15:47] VITALS: BMI 27.3
[~2023-06-17 04:57] MED LIST changes: -ACETAMINOPHEN 500 MG TABLET (FP) PO PRN; -BUPIVACAINE HCL/PF 0.75% 10 ML VIAL CAUD ONE; +DEXAMETHASONE SOD PHOSPHATE 10 MG/1 ML VIAL IM ONE; +IOHEXOL 180 MG/1 ML ML IJ ONE; +LIDOCAINE HCL 1% PRESERVATIVE FREE - 30ML VIAL IJ ONE; -LIDOCAINE HCL 1% PRESERVATIVE FREE - 30ML VIAL INF ONE
[2023-06-17] MEDS ORDERED: DEXAMETHASONE SOD PHOSPHATE 10 MG/1 ML VIAL ONE ×2 (07:25→07:36)
[2023-06-17 09:35] VITALS: RESP 20
[2023-06-17] MEDS ORDERED: ACETAMINOPHEN 500 MG TABLET (FP) PO PRN (10:01)
[2023-06-17 13:43] VITALS: BP 155/86; PULSE 70; TEMP 98
== END 2023-06-17 12:42 | disposition home or self-care (01) ==
LOC: JASU-SURG 04:57
PROVIDERS: ATTEND Pain Medicine Pain Medicine
PROC: 3E0R3BZ Introduction of Anesthetic Agent into Spinal Canal, Percutaneous Approach (ICD-10-PCS; 2023-06-17)
PROC: 3E0R33Z Introduction of Anti-inflammatory into Spinal Canal, Percutaneous Approach (ICD-10-PCS; principal; 2023-06-17 11:30)
DX: M48.061 Spinal stenosis, lumbar region without neurogenic claudication (principal); M54.16 Radiculopathy, lumbar region
CPT/HCPCS: 76000-TC-FY; J1100

== ENCOUNTER 2023-09-06 09:35 | Inpatient (IN) | payer OTHER ==
[2023-09-06 09:40] VITALS: BMI 28.3
[2023-09-06] MEDS ORDERED: ACETAMINOPHEN 1000 MG/100 ML BAG IVPB ONE (10:29)
[2023-09-06] MEDS ORDERED: ACETAMINOPHEN INJECTION 100 ML IVPB ONE (10:53)
[2023-09-06 11:11] LABS: BASO % 0.3 % (0-2.0); EOS % 1.9 % (0-4.5); HEMATOCRIT 39.3 % (35.4-49); HEMOGLOBIN 12.7 GM/dL (11.7-16.9); LYMPH % 17.2 % (8-40); MCHC 32.2 g/dl (32.0-35.9); MEAN CELL VOLUME 102.5 fl (80-96); MEAN PLT VOLUME 10.3 fl (7.5-11.1); MONO % 10.1 % (3.8-10.2); NEUT % 70.5 % (42.8-82.8); PLATELET COUNT 165 10^3/uL (134-434); RBC 3.83 M/mm3 (4.00-5.60); RDW 13.3 % (11.9-15.9); WHITE BLOOD COUNT 7.3 K/mm3 (4.0-10.0)
[2023-09-06 11:12] LABS: EPI CELLS 29 /uL (0-25.1); HYALINE CASTS 0 /uL (0-3.1); PH,URINE 5.5 (5.0-8.0); URINE APPEARANCE CLOUDY; URINE BACTERIA >9,000 /uL (0-1359); URINE BILIRUBIN NEGATIVE (NEGATIVE); URINE COLOR YELLOW; URINE GLUCOSE (UA) NEGATIVE (NEGATIVE); URINE KETONE NEGATIVE (NEGATIVE); URINE LEUK ESTERASE 3+ (NEGATIVE); URINE NITRITE NEGATIVE (NEGATIVE); URINE PROTEIN 1+ (NEGATIVE); URINE RBC 23 /uL (0-23.9); URINE UROBILINOGEN 0.2 mg/dL (0.2-1.0); URINE WBC 1206 /uL (0-25.8)
[2023-09-06 11:31] LABS: POTASSIUM 5.7 mmol/L (3.5-5.1)
[2023-09-06 11:33] LABS: CALCIUM 9.4 mg/dL (8.5-10.1)
[2023-09-06 11:34] LABS: ALBUMIN 3.6 g/dl (3.4-5.0); BLOOD UREA NITROGEN 24.5 mg/dL (7-18)
[2023-09-06 11:37] LABS: CREATININE 1.3 mg/dL (0.55-1.3)
[2023-09-06 11:38] LABS: BILIRUBIN,TOTAL 0.6 mg/dL (0.2-1); TOT PROT 7.3 g/dl (6.4-8.2)
[2023-09-06 11:42] LABS: N-TERMINAL BNP 65.1 pg/ml (5-450)
[2023-09-06] MEDS ORDERED: CEFTRIAXONE 1 GM in DEXTROSE 5%-WATER - 100 ML IVPB ONE (13:37)
[2023-09-06] MEDS ORDERED: CEFTRIAXONE 1 GM/50 ML BAG ONE (13:55)
[2023-09-06] MEDS ORDERED: ONDANSETRON 4 MG/2 ML VIAL ONE (14:41)
[2023-09-06] MEDS ORDERED: SODIUM CHLORIDE 0.9% 500 ML INFUS.BAG IV ONE (14:42)
[2023-09-06] MEDS ORDERED: ONDANSETRON 4 MG/2 ML VIAL IVPUSH ONE (14:42)
[2023-09-06] MEDS ORDERED: ERTAPENEM SODIUM 1 GM VIAL ONE (15:36)
[2023-09-06] MEDS ORDERED: ERTAPENEM SODIUM 1 GM in SODIUM CHLORIDE 50 ML IVPB ONE (15:45)
[2023-09-06] MEDS ORDERED: INSULIN (LEVEMIR) 100 UNITS/ML UNITS SQ SCH (22:00)
[2023-09-06] MEDS ORDERED: ATORVASTATIN CA 80 MG TABLET (FP) PO SCH (22:00)
[2023-09-06] MEDS ORDERED: ENOXAPARIN NA (PORCINE) 80 MG/0.8 ML DISP.SYRIN SQ SCH (22:00)
[2023-09-06] MEDS: RIVAROXABAN 2.5 MG TABLET PO SCH (23:00)
[2023-09-06] MEDS: PREGABALIN 100 MG CAPSULE PO SCH (23:00)
[2023-09-06] MEDS ORDERED: ATORVASTATIN CA 80 MG TABLET (FP) ONE (23:03)
[2023-09-06] MEDS ORDERED: PREGABALIN 100 MG CAPSULE ONE (23:03)
[2023-09-07] MEDS: RIVAROXABAN 2.5 MG TABLET PO SCH ×3 (01:07→22:52)
[2023-09-07 06:55] LABS: BASO % 0.2 % (0-2.0); EOS % 3.1 % (0-4.5); HEMOGLOBIN 12.3 GM/dL (11.7-16.9); LYMPH % 22.3 % (8-40); MCHC 33.3 g/dl (32.0-35.9); MEAN PLT VOLUME 9.8 fl (7.5-11.1); MONO % 14.1 % (3.8-10.2); NEUT % 60.3 % (42.8-82.8); PLATELET COUNT 157 10^3/uL (134-434); RBC 3.62 M/mm3 (4.00-5.60); RDW 13.5 % (11.9-15.9); WHITE BLOOD COUNT 6.1 K/mm3 (4.0-10.0)
[2023-09-07 07:15] LABS: POTASSIUM 3.9 mmol/L (3.5-5.1)
[2023-09-07 07:21] LABS: ALBUMIN 3.4 g/dl (3.4-5.0)
[2023-09-07 07:22] LABS: BLOOD UREA NITROGEN 18.9 mg/dL (7-18); CALCIUM 8.8 mg/dL (8.5-10.1); MAGNESIUM 1.9 mg/dL (1.8-2.4)
[2023-09-07 07:24] LABS: CREATININE 1.2 mg/dL (0.55-1.3)
[2023-09-07 07:25] LABS: PHOSPHOROUS 3.5 mg/dL (2.5-4.9)
[2023-09-07 07:28] LABS: TOT PROT 6.7 g/dl (6.4-8.2)
[2023-09-07 07:40] LABS: BILIRUBIN,TOTAL 0.6 mg/dL (0.2-1)
[2023-09-07] MEDS ORDERED: TAMSULOSIN HCL 0.4 MG CAP PO SCH (08:30)
[2023-09-07] MEDS ORDERED: CEFTRIAXONE 1 GM in DEXTROSE 5%-WATER - 50 ML IVPB SCH (10:00)
[2023-09-07] MEDS ORDERED: FINASTERIDE 5 MG TABLET (FP) PO SCH (10:00)
[2023-09-07] MEDS ORDERED: FAMOTIDINE 20 MG TABLET PO SCH (10:00)
[2023-09-07] MEDS ORDERED: CLOPIDOGREL BISULFATE 75 MG TABLET (FP) PO SCH (10:00)
[2023-09-07] MEDS ORDERED: DOCUSATE SODIUM 100 MG CAPSULE (FP) PO SCH (10:00)
[2023-09-07] MEDS ORDERED: PATIENT'S OWN MEDICATION (NON-FORMULARY) (Famotidine [Pepcid] 40 MG Tablet) PO SCH (10:00)
[2023-09-07] MEDS ORDERED: LISINOPRIL 10 MG TABLET PO SCH (10:00)
[2023-09-07] MEDS ORDERED: ERTAPENEM SODIUM 1 GM in SODIUM CHLORIDE 50 ML IVPB SCH (10:00)
[2023-09-07] MEDS ORDERED: CYANOCOBALAMIN 1,000 MCG TABLET (FP) PO SCH (10:00)
[2023-09-07] MEDS ORDERED: CLOPIDOGREL BISULFATE 75 MG TABLET (FP) ONE (10:01)
[2023-09-07] MEDS ORDERED: PREGABALIN 100 MG CAPSULE ONE (10:01)
[2023-09-07] MEDS ORDERED: FAMOTIDINE 20 MG TABLET ONE (10:01)
[2023-09-07] MEDS ORDERED: DOCUSATE SODIUM 100 MG CAPSULE (FP) PO ONE (10:01)
[2023-09-07] MEDS ORDERED: ERTAPENEM SODIUM 1 GM VIAL ONE (10:02)
[2023-09-07] MEDS ORDERED: LISINOPRIL 10 MG TABLET ONE (10:02)
[2023-09-07] MEDS ORDERED: TAMSULOSIN HCL 0.4 MG CAP ONE (10:02)
[2023-09-07] MEDS: PREGABALIN 100 MG CAPSULE PO SCH ×2 (10:39→22:52)
[2023-09-07] MEDS ORDERED: hydrALAZINE HCL 20 MG/ML VIAL IVPUSH PRN ×2 (11:37→12:54)
[2023-09-07] MEDS ORDERED: LISINOPRIL 20 MG TABLET PO SCH (11:37)
[2023-09-07] MEDS ORDERED: PIPERACILLIN/TAZOB 3.375 GM 3.375 GM in DEXTROSE 5%-WATER - 50 ML IVPB SCH ×2 (12:19→18:00)
[2023-09-07] MEDS ORDERED: PIPERACILLIN/TAZOB 3.375 GM 3.375 GM/50 ML BAG IVPB ONE (12:28)
[2023-09-07] MEDS: PIPERACILLIN/TAZOB 3.375 GM 3.375 GM in DEXTROSE 5%-WATER - 50 ML IVPB SCH (17:21)
[2023-09-07] MEDS ORDERED: INSULIN (NOVOLOG) ASPART 100 UNITS/ML 10ML VIAL ONE (21:22)
[2023-09-07] MEDS: INSULIN (LEVEMIR) 100 UNITS/ML UNITS SQ SCH (22:52)
[2023-09-07] MEDS: ATORVASTATIN CA 80 MG TABLET (FP) PO SCH (22:52)
[2023-09-08] MEDS: INSULIN ASPART SLIDING SCALE (NOVOLOG) 1 VIAL SQ SCH ×4 (00:22→17:22)
[2023-09-08] MEDS: PIPERACILLIN/TAZOB 3.375 GM 3.375 GM in DEXTROSE 5%-WATER - 50 ML IVPB SCH ×3 (03:05→17:18)
[2023-09-08 09:03] LABS: BASO % 0.1 % (0-2.0); EOS % 1.8 % (0-4.5); HEMATOCRIT 36.1 % (35.4-49); HEMOGLOBIN 11.6 GM/dL (11.7-16.9); LYMPH % 17.3 % (8-40); MCH 33.3 pg (25.7-33.7); MCHC 32.3 g/dl (32.0-35.9); MEAN CELL VOLUME 103.1 fl (80-96); MEAN PLT VOLUME 9.9 fl (7.5-11.1); MONO % 11.7 % (3.8-10.2); NEUT % 69.1 % (42.8-82.8); PLATELET COUNT 154 10^3/uL (134-434); RDW 13.3 % (11.9-15.9); WHITE BLOOD COUNT 6.7 K/mm3 (4.0-10.0)
[2023-09-08 09:17] LABS: POTASSIUM 4.6 mmol/L (3.5-5.1)
[2023-09-08 09:20] LABS: CALCIUM 9.2 mg/dL (8.5-10.1)
[2023-09-08 09:21] LABS: ALBUMIN 3.2 g/dl (3.4-5.0); BLOOD UREA NITROGEN 22.2 mg/dL (7-18)
[2023-09-08 09:24] LABS: CREATININE 1.4 mg/dL (0.55-1.3)
[2023-09-08 09:26] LABS: BILIRUBIN,TOTAL 0.6 mg/dL (0.2-1); TOT PROT 6.4 g/dl (6.4-8.2)
[2023-09-08] MEDS: FAMOTIDINE 20 MG TABLET PO SCH (10:52)
[2023-09-08] MEDS: CLOPIDOGREL BISULFATE 75 MG TABLET (FP) PO SCH (10:52)
[2023-09-08] MEDS: DOCUSATE SODIUM 100 MG CAPSULE (FP) PO SCH (10:52)
[2023-09-08] MEDS: CYANOCOBALAMIN 1,000 MCG TABLET (FP) PO SCH (10:52)
[2023-09-08] MEDS: FINASTERIDE 5 MG TABLET (FP) PO SCH (10:52)
[2023-09-08] MEDS: PREGABALIN 100 MG CAPSULE PO SCH ×2 (10:52→21:38)
[2023-09-08] MEDS: LISINOPRIL 20 MG TABLET PO SCH (10:52)
[2023-09-08] MEDS: TAMSULOSIN HCL 0.4 MG CAP PO SCH (10:53)
[2023-09-08] MEDS: RIVAROXABAN 2.5 MG TABLET PO SCH ×2 (12:27→21:39)
[2023-09-08] MEDS: ATORVASTATIN CA 80 MG TABLET (FP) PO SCH (21:39)
[2023-09-08] MEDS: INSULIN (LEVEMIR) 100 UNITS/ML UNITS SQ SCH (21:39)
[2023-09-09] MEDS: PIPERACILLIN/TAZOB 3.375 GM 3.375 GM in DEXTROSE 5%-WATER - 50 ML IVPB SCH ×3 (01:40→18:42)
[2023-09-09] MEDS: INSULIN ASPART SLIDING SCALE (NOVOLOG) 1 VIAL SQ SCH ×3 (06:18→16:54)
[2023-09-09 09:06] LABS: BASO % 0.3 % (0-2.0); EOS % 2.3 % (0-4.5); HEMATOCRIT 35.9 % (35.4-49); HEMOGLOBIN 11.8 GM/dL (11.7-16.9); LYMPH % 27.2 % (8-40); MCH 33.7 pg (25.7-33.7); MCHC 32.9 g/dl (32.0-35.9); MEAN CELL VOLUME 102.3 fl (80-96); MEAN PLT VOLUME 10.1 fl (7.5-11.1); MONO % 12.9 % (3.8-10.2); NEUT % 57.3 % (42.8-82.8); PLATELET COUNT 166 10^3/uL (134-434); RBC 3.51 M/mm3 (4.00-5.60); RDW 13.4 % (11.9-15.9)
[2023-09-09] MEDS: TAMSULOSIN HCL 0.4 MG CAP PO SCH (09:06)
[2023-09-09 09:26] LABS: POTASSIUM 4.1 mmol/L (3.5-5.1)
[2023-09-09 10:02] LABS: ALBUMIN 3.5 g/dl (3.4-5.0)
[2023-09-09 10:03] LABS: BLOOD UREA NITROGEN 21.6 mg/dL (7-18); CALCIUM 9.3 mg/dL (8.5-10.1)
[2023-09-09 10:06] LABS: CREATININE 1.6 mg/dL (0.55-1.3)
[2023-09-09 10:07] LABS: BILIRUBIN,TOTAL 0.7 mg/dL (0.2-1)
[2023-09-09 10:08] LABS: TOT PROT 6.9 g/dl (6.4-8.2)
[2023-09-09] MEDS: LISINOPRIL 20 MG TABLET PO SCH (11:21)
[2023-09-09] MEDS: DOCUSATE SODIUM 100 MG CAPSULE (FP) PO SCH (11:21)
[2023-09-09] MEDS: CLOPIDOGREL BISULFATE 75 MG TABLET (FP) PO SCH (11:21)
[2023-09-09] MEDS: FINASTERIDE 5 MG TABLET (FP) PO SCH (11:21)
[2023-09-09] MEDS: CYANOCOBALAMIN 1,000 MCG TABLET (FP) PO SCH (11:21)
[2023-09-09] MEDS: RIVAROXABAN 2.5 MG TABLET PO SCH (11:22)
[2023-09-09] MEDS: FAMOTIDINE 20 MG TABLET PO SCH (11:22)
[2023-09-09] MEDS: PREGABALIN 100 MG CAPSULE PO SCH (11:22)
[2023-09-09] MEDS ORDERED: INSULIN (NOVOLOG) ASPART 100 UNITS/ML 10ML VIAL ONE (12:13)
[2023-09-09 14:44] VITALS: BP 147/70; PULSE 72; RESP 20; TEMP 98
== END 2023-09-09 18:42 | disposition home or self-care (01) | DRG 690 ==
LOC: JER 09:35 → JERBED 16:07 → J7W 09-07 15:20
PROVIDERS: ADMIT Internal Medicine; ATTEND Nurse Practitioner
DX: N39.0 Urinary tract infection, site not specified (principal); N40.1 Benign prostatic hyperplasia with lower urinary tract symptoms; E11.65 Type 2 diabetes mellitus with hyperglycemia; E78.5 Hyperlipidemia, unspecified; I73.9 Peripheral vascular disease, unspecified; I10 Essential (primary) hypertension
CPT/HCPCS: 36415; 74177-TC; 80053; 81003; 82962; 83605; 83690; 83735; 83880; 84100; 84484; 85025; 87086; 87186; 93005; 93010; 99285-25; Q9967

== ENCOUNTER 2023-10-04 08:52 | Observation (INO) | payer OTHER ==
[2023-10-04 08:58] VITALS: BMI 29.5
[2023-10-04] MEDS ORDERED: ACETAMINOPHEN INJECTION 100 ML IVPB ONE (09:47)
[2023-10-04] MEDS ORDERED: FAMOTIDINE 20 MG/50 ML IVPB 20 MG/50 ML MG IVPB ONE (09:48)
[2023-10-04] MEDS ORDERED: ONDANSETRON 4 MG/2 ML VIAL ONE (09:48)
[2023-10-04] MEDS: ONDANSETRON 4 MG/2 ML VIAL IVPUSH ONE (09:55)
[2023-10-04] MEDS: ACETAMINOPHEN 1000 MG/100 ML BAG IVPB ONE (09:55)
[2023-10-04] MEDS: SODIUM CHLORIDE 0.9% 500 ML INFUS.BAG IV ONE (09:55)
[2023-10-04 09:59] LABS: EPI CELLS >36 /uL (0-25.1); HYALINE CASTS 1 /uL (0-3.1); URINE APPEARANCE CLEAR; URINE BACTERIA 12 /uL (0-1359); URINE BILIRUBIN NEGATIVE (NEGATIVE); URINE COLOR YELLOW; URINE GLUCOSE (UA) NEGATIVE (NEGATIVE); URINE KETONE TRACE (NEGATIVE); URINE LEUK ESTERASE 2+ (NEGATIVE); URINE NITRITE NEGATIVE (NEGATIVE); URINE PROTEIN 2+ (NEGATIVE); URINE RBC 20 /uL (0-23.9); URINE UROBILINOGEN 0.2 mg/dL (0.2-1.0); URINE WBC 92 /uL (0-25.8)
[2023-10-04 10:00] LABS: BASO % 0.3 % (0-2.0); HEMOGLOBIN 12.4 GM/dL (11.7-16.9); LYMPH % 18.4 % (8-40); MCH 34.2 pg (25.7-33.7); MCHC 33.5 g/dl (32.0-35.9); MEAN CELL VOLUME 102.2 fl (80-96); MEAN PLT VOLUME 10.1 fl (7.5-11.1); MONO % 11.5 % (3.8-10.2); NEUT % 68.8 % (42.8-82.8); PLATELET COUNT 222 10^3/uL (134-434); RBC 3.62 M/mm3 (4.00-5.60)
[2023-10-04 10:02] LABS: INR 1.1 (0.83-1.09); PROTHROMBIN TIME (PATIENT) 12.7 SEC (9.7-13.0)
[2023-10-04 10:04] LABS: ACTIVATED PTT 35.4 SECONDS (25.2-36.5)
[2023-10-04 10:09] LABS: POTASSIUM 4.3 mmol/L (3.5-5.1)
[2023-10-04 10:11] LABS: ALBUMIN 4.1 g/dl (3.4-5.0); CALCIUM 10.2 mg/dL (8.5-10.1)
[2023-10-04 10:12] LABS: BLOOD UREA NITROGEN 26.6 mg/dL (7-18)
[2023-10-04 10:14] LABS: CREATININE 1.5 mg/dL (0.55-1.3)
[2023-10-04 10:16] LABS: BILIRUBIN,TOTAL 0.7 mg/dL (0.2-1); TOT PROT 8.1 g/dl (6.4-8.2)
[2023-10-04] MEDS: FAMOTIDINE 20 MG/50 ML IVPB 20 MG/50 ML MG IVPB ONE (10:58)
[2023-10-04] MEDS ORDERED: VANCOMYCIN 1 GRAM (PRE-DOCKED) 1,000 MG/250 ML BAG IVPB ONE (14:12)
[2023-10-04] MEDS: VANCOMYCIN 1,000 MG in DEXTROSE 5%-WATER - 250 ML IVPB ONE (14:21)
[2023-10-04] MEDS ORDERED: ONDANSETRON 4 MG/2 ML VIAL IVPUSH PRN (15:33)
[2023-10-04 15:40] VITALS: TEMP 98
[2023-10-04] MEDS: SODIUM CHLORIDE 1,000 ML IV SCH (15:52)
[2023-10-04] MEDS: ERTAPENEM SODIUM 1 GM in SODIUM CHLORIDE 50 ML IVPB ONE (15:52)
[2023-10-04] MEDS ORDERED: PANTOPRAZOLE SODIUM 40 MG VIAL ONE (17:44)
[2023-10-04] MEDS: PANTOPRAZOLE SODIUM 40 MG VIAL IVPUSH SCH (17:50)
[2023-10-04] MEDS: INSULIN ASPART SLIDING SCALE (NOVOLOG) 1 VIAL SQ SCH (17:50)
[2023-10-04 18:04] VITALS: BP 146/73; PULSE 66; RESP 13
[2023-10-04] MEDS ORDERED: ATORVASTATIN CA 80 MG TABLET (FP) PO SCH (22:00)
[2023-10-04] MEDS ORDERED: PREGABALIN 100 MG CAPSULE PO SCH (22:00)
[2023-10-05] MEDS ORDERED: TAMSULOSIN HCL 0.4 MG CAP PO SCH (08:30)
[2023-10-05] MEDS ORDERED: LISINOPRIL 10 MG TABLET PO SCH (10:00)
[2023-10-05] MEDS ORDERED: FINASTERIDE 5 MG TABLET (FP) PO SCH (10:00)
[2023-10-05] MEDS ORDERED: CLOPIDOGREL BISULFATE 75 MG TABLET (FP) PO SCH (10:00)
== END 2023-10-04 18:05 | disposition home or self-care (01) ==
LOC: JER 08:52 → JERBED 15:08 → INTOOBSV 15:08 → UNDOADMOB 15:08 → JERBED 15:30
PROVIDERS: ADMIT Internal Medicine; ATTEND Internal Medicine
PROC: 3E033GC Introduction of Other Therapeutic Substance into Peripheral Vein, Percutaneous Approach (ICD-10-PCS; principal; 2023-10-04)
PROC: 3E03329 Introduction of Other Anti-infective into Peripheral Vein, Percutaneous Approach (ICD-10-PCS; 2023-10-04)
PROC: 3E033NZ Introduction of Analgesics, Hypnotics, Sedatives into Peripheral Vein, Percutaneous Approach (ICD-10-PCS; 2023-10-04)
DX: A08.4 Viral intestinal infection, unspecified (principal); K59.00 Constipation, unspecified; E11.9 Type 2 diabetes mellitus without complications; I12.9 Hypertensive chronic kidney disease with stage 1 through stage 4 chronic kidney disease, or unspecified chronic kidney disease; N18.9 Chronic kidney disease, unspecified; I10 Essential (primary) hypertension; K21.9 Gastro-esophageal reflux disease without esophagitis; E78.5 Hyperlipidemia, unspecified; Z87.440 Personal history of urinary (tract) infections; I73.9 Peripheral vascular disease, unspecified; N40.0 Benign prostatic hyperplasia without lower urinary tract symptoms; Z90.79 Acquired absence of other genital organ(s); Z95.5 Presence of coronary angioplasty implant and graft; Z79.4 Long term (current) use of insulin
CPT/HCPCS: 36415; 71046-TC-FY; 74177-TC; 80053; 81003; 82962; 83605; 83690; 84484; 85025; 85610; 85730; 86850; 86900; 86901; 87086; 93005; 93010; 96361; 96365; 96367; 96375; 99285-25; G0378; J0131; Q9967

== ENCOUNTER 2024-02-26 16:38 | Emergency (ER) | payer OTHER ==
[2024-02-26 16:49] VITALS: BP 145/69; PULSE 72; RESP 18; TEMP 99; BMI 29.5
[2024-02-26 19:28] LABS: INR 1.01 (0.83-1.09); PROTHROMBIN TIME (PATIENT) 11.6 SEC (9.7-13.0)
[2024-02-26 19:31] LABS: ACTIVATED PTT 43.9 SECONDS (25.2-36.5)
[2024-02-26 19:33] LABS: BASO % 0.4 % (0-2.0); EOS % 1.6 % (0-4.5); HEMATOCRIT 36.5 % (35.4-49); HEMOGLOBIN 12.3 GM/dL (11.7-16.9); LYMPH % 24.5 % (8-40); MCH 34.4 pg (25.7-33.7); MCHC 33.6 g/dl (32.0-35.9); MEAN CELL VOLUME 102.4 fl (80-96); MEAN PLT VOLUME 9.3 fl (7.5-11.1); MONO % 12.7 % (3.8-10.2); NEUT % 60.8 % (42.8-82.8); PLATELET COUNT 191 10^3/uL (134-434); RBC 3.57 M/mm3 (4.00-5.60); RDW 14.1 % (11.9-15.9); WHITE BLOOD COUNT 7.5 K/mm3 (4.0-10.0)
== END 2024-02-26 20:17 | disposition home or self-care (01) ==
LOC: JER 16:38
DX: S00.522A Blister (nonthermal) of oral cavity, initial encounter (principal); K12.30 Oral mucositis (ulcerative), unspecified; X58.XXXA Exposure to other specified factors, initial encounter
CPT/HCPCS: 36415; 85025; 85610; 85730; 99283-25

== ENCOUNTER 2024-09-01 13:23 | Emergency (ER) | payer OTHER ==
[2024-09-01 13:36] VITALS: BP 164/72; PULSE 74; RESP 16; TEMP 97.6; BMI 25.0
[2024-09-01] MEDS ORDERED: predniSONE 20 MG TABLET (UD) ONE (15:16)
[2024-09-01] MEDS ORDERED: diphenhydrAMINE HCL 25 MG CAPSULE (FP) PO ONE (15:16)
[2024-09-01] MEDS: diphenhydrAMINE HCL 50 MG CAPSULE PO ONE (15:18)
[2024-09-01] MEDS: predniSONE 20 MG TABLET (UD) PO ONE (15:18)
== END 2024-09-01 18:02 | disposition home or self-care (01) ==
LOC: JER 13:23
DX: L29.9 Pruritus, unspecified (principal)
CPT/HCPCS: 99283-25

== ENCOUNTER 2024-11-07 16:22 | Inpatient (IN) | payer OTHER ==
[2024-11-07 17:43] LABS: ABSOLUTE IMMATURE GRANULOCYTES 0.03 x10^3/uL (0.0-0.031); BASOPHILS # 0.01 x10^3/uL (0.01-0.08); EOSINOPHIL % 2.1 % (0.8-7.0); EOSINOPHILS # 0.14 x10^3/uL (0.04-0.54); HEMATOCRIT 34.1 % (40.1-51.0); MCHC 32.3 g/dl (32.3-36.5); MEAN CELL VOLUME 102.4 fl (79.0-92.2); MEAN PLT VOLUME 11.6 fl (9.4-12.4); MONOCYTE # 0.84 x10^3/uL (0.30-0.82); MONOCYTE % 12.7 % (5.3-12.2); PLATELET COUNT 184 x10^3/uL (163-337); RDW 12.9 % (12.6-16.6)
[2024-11-07 17:53] LABS: EPI CELLS 5 /uL (0-25.1); HYALINE CASTS 0 /uL (0-3.1); URINE APPEARANCE CLEAR; URINE BACTERIA >9,000 /uL (0-1359); URINE BILIRUBIN NEGATIVE (NEGATIVE); URINE COLOR YELLOW; URINE GLUCOSE (UA) NEGATIVE (NEGATIVE); URINE KETONE NEGATIVE (NEGATIVE); URINE LEUK ESTERASE 2+ (NEGATIVE); URINE NITRITE POSITIVE (NEGATIVE); URINE PROTEIN NEGATIVE (NEGATIVE); URINE RBC 12 /uL (0-23.9); URINE UROBILINOGEN 0.2 mg/dL (0.2-1.0); URINE WBC 172 /uL (0-25.8)
[2024-11-07 18:04] LABS: INR 1.09 (0.83-1.09)
[2024-11-07 18:07] LABS: ACTIVATED PTT 40.3 SECONDS (25.2-36.5)
[2024-11-07] MEDS ORDERED: MEROPENEM 1 GM VIAL (RESTRICTED TO ID) IVPB ONE (18:21)
[2024-11-07] MEDS: MEROPENEM 1 GM in DEXTROSE 5%-WATER 100 ML IVPB ONE (18:28)
[2024-11-07 18:30] LABS: POTASSIUM 4.6 mmol/L (3.5-5.1)
[2024-11-07 18:32] LABS: CALCIUM 9.7 mg/dL (8.5-10.1)
[2024-11-07 18:33] LABS: ALBUMIN 4.5 g/dl (3.4-5.0); BLOOD UREA NITROGEN 27.2 mg/dL (7-18); MAGNESIUM 2.2 mg/dL (1.8-2.4)
[2024-11-07 18:36] LABS: CREATININE 1.4 mg/dL (0.55-1.3)
[2024-11-07 18:37] LABS: BILIRUBIN,TOTAL 0.5 mg/dL (0.2-1); TOT PROT 7.6 g/dl (6.4-8.2)
[2024-11-07 19:00] LABS: HCV DIAGNOSTIC IN-HOUSE W/RFLX NON-REACTIVE (NONREACTIVE)
[2024-11-07 19:01] LABS: HIV INTERPRETATION NEGATIVE (NEGATIVE)
[2024-11-07] MEDS ORDERED: HEPARIN NA (PORCINE) 5,000 UNITS/ML 1ML VIAL SQ SCH (22:00)
[2024-11-07] MEDS: RIVAROXABAN 2.5 MG TABLET PO SCH (23:34)
[2024-11-07] MEDS: PRAMIPEXOLE DIHYDROCHLORIDE 0.125 MG TABLET PO SCH (23:34)
[2024-11-07] MEDS: ERTAPENEM SODIUM 0.5 GM in SODIUM CHLORIDE 50 ML IVPB ONE (23:34)
[2024-11-08 02:08] VITALS: RESP 18
[2024-11-08 03:20] VITALS: BMI 28.4
[2024-11-08] MEDS: INSULIN ASPART SLIDING SCALE (NOVOLOG) 1 VIAL SQ SCH (07:16)
[2024-11-08 08:32] LABS: HEMATOCRIT 35.2 % (40.1-51.0); HEMOGLOBIN 11.3 g/dL (13.7-17.5); MCHC 32.1 g/dl (32.3-36.5); MEAN CELL VOLUME 101.7 fl (79.0-92.2); MEAN PLT VOLUME 11.3 fl (9.4-12.4); PLATELET COUNT 194 x10^3/uL (163-337); RDW 13.2 % (12.6-16.6)
[2024-11-08 08:55] LABS: POTASSIUM 4.3 mmol/L (3.5-5.1)
[2024-11-08 09:08] LABS: CALCIUM 9.7 mg/dL (8.5-10.1)
[2024-11-08 09:09] LABS: MAGNESIUM 2.1 mg/dL (1.8-2.4)
[2024-11-08 09:10] LABS: BLOOD UREA NITROGEN 22.4 mg/dL (7-18)
[2024-11-08 09:11] LABS: BILIRUBIN,TOTAL 0.8 mg/dL (0.2-1); CREATININE 1.4 mg/dL (0.55-1.3); PHOSPHOROUS 3.2 mg/dL (2.5-4.9); TOT PROT 7.3 g/dl (6.4-8.2)
[2024-11-08 09:17] LABS: N-TERMINAL BNP 31.5 pg/ml (5-450)
[2024-11-08] MEDS: METOPROLOL TARTRATE 25 MG TABLET (FP) PO SCH (09:21)
[2024-11-08] MEDS: TAMSULOSIN HCL 0.4 MG CAP PO SCH (09:22)
[2024-11-08] MEDS: LISINOPRIL 20 MG TABLET PO SCH (09:22)
[2024-11-08] MEDS: EZETIMIBE 10 MG TABLET (FP) PO SCH (09:22)
[2024-11-08] MEDS: CLOPIDOGREL BISULFATE 75 MG TABLET (FP) PO SCH (09:22)
[2024-11-08] MEDS: ERTAPENEM SODIUM 0.5 GM in SODIUM CHLORIDE 50 ML IVPB ONE (15:15)
[2024-11-08] MEDS: GABAPENTIN 300 MG CAPSULE PO ONE (23:13)
[2024-11-09 08:58] LABS: ABSOLUTE IMMATURE GRANULOCYTES 0.02 x10^3/uL (0.0-0.031); BASOPHILS # 0.01 x10^3/uL (0.01-0.08); EOSINOPHIL % 2.4 % (0.8-7.0); EOSINOPHILS # 0.13 x10^3/uL (0.04-0.54); HEMATOCRIT 35.4 % (40.1-51.0); HEMOGLOBIN 11.3 g/dL (13.7-17.5); MCHC 31.9 g/dl (32.3-36.5); MEAN CELL VOLUME 101.7 fl (79.0-92.2); MEAN PLT VOLUME 11.7 fl (9.4-12.4); MONOCYTE # 0.71 x10^3/uL (0.30-0.82); MONOCYTE % 13.4 % (5.3-12.2); PLATELET COUNT 187 x10^3/uL (163-337)
[2024-11-09 09:25] LABS: POTASSIUM 4.3 mmol/L (3.5-5.1)
[2024-11-09 09:47] LABS: BLOOD UREA NITROGEN 25.5 mg/dL (7-18); CALCIUM 9.4 mg/dL (8.5-10.1); MAGNESIUM 2.1 mg/dL (1.8-2.4)
[2024-11-09 09:51] LABS: CREATININE 1.4 mg/dL (0.55-1.3); PHOSPHOROUS 3.6 mg/dL (2.5-4.9)
[2024-11-09 09:52] LABS: BILIRUBIN,TOTAL 0.8 mg/dL (0.2-1); TOT PROT 7.3 g/dl (6.4-8.2)
[2024-11-09] MEDS: ERTAPENEM SODIUM 1 GM in SODIUM CHLORIDE 50 ML IVPB SCH (10:05)
[2024-11-09] MEDS: GABAPENTIN 300 MG CAPSULE PO ONE (22:35)
[2024-11-10 08:38] LABS: ABSOLUTE IMMATURE GRANULOCYTES 0.04 x10^3/uL (0.0-0.031); BASOPHILS # 0.02 x10^3/uL (0.01-0.08); EOSINOPHIL % 2.7 % (0.8-7.0); EOSINOPHILS # 0.18 x10^3/uL (0.04-0.54); HEMATOCRIT 38.3 % (40.1-51.0); HEMOGLOBIN 12.5 g/dL (13.7-17.5); MCHC 32.6 g/dl (32.3-36.5); MEAN CELL VOLUME 101.9 fl (79.0-92.2); MEAN PLT VOLUME 11.5 fl (9.4-12.4); MONOCYTE # 0.78 x10^3/uL (0.30-0.82); MONOCYTE % 11.9 % (5.3-12.2); PLATELET COUNT 193 x10^3/uL (163-337); RDW 13.3 % (12.6-16.6)
[2024-11-10 09:00] LABS: POTASSIUM 4.2 mmol/L (3.5-5.1)
[2024-11-10 09:05] LABS: CALCIUM 9.7 mg/dL (8.5-10.1)
[2024-11-10 09:06] LABS: ALBUMIN 4.1 g/dl (3.4-5.0); BLOOD UREA NITROGEN 23.9 mg/dL (7-18); MAGNESIUM 2.3 mg/dL (1.8-2.4)
[2024-11-10 09:09] LABS: CREATININE 1.3 mg/dL (0.55-1.3)
[2024-11-10 09:10] LABS: BILIRUBIN,TOTAL 0.9 mg/dL (0.2-1); TOT PROT 7.6 g/dl (6.4-8.2)
[2024-11-10 10:42] VITALS: BP 123/62; PULSE 72; TEMP 97.7
== END 2024-11-10 13:00 | disposition home or self-care (01) | DRG 690 ==
LOC: JER 16:22 → JERBED 18:49 → J6S 11-08 00:04
PROVIDERS: ADMIT Hospitalist; ATTEND Internal Medicine
DX: N39.0 Urinary tract infection, site not specified (principal); I12.9 Hypertensive chronic kidney disease with stage 1 through stage 4 chronic kidney disease, or unspecified chronic kidney disease; N18.9 Chronic kidney disease, unspecified; N40.0 Benign prostatic hyperplasia without lower urinary tract symptoms; E78.5 Hyperlipidemia, unspecified; E11.22 Type 2 diabetes mellitus with diabetic chronic kidney disease; E11.51 Type 2 diabetes mellitus with diabetic peripheral angiopathy without gangrene; R06.09 Other forms of dyspnea
CPT/HCPCS: 0241U-QW; 36415; 71045-TC-FY; 80053; 81003; 82550; 82962; 83735; 83880; 84100; 84484; 85025; 85027; 85610; 85730; 86803; 86850; 86900; 86901; 87086; 87186; 87389; 93005; 93010; 97116-GP; 97162-GP; 99285-25